=== PATIENT | male | born 1935 | race Caucasian/White ===

== ENCOUNTER 2016-09-09 05:42 | Outpatient (CLI) | payer MEDICARE ==
[~2016-09-09] VITALS: Ht 182.9 cm; Wt 73.5 kg
[~2016-09-09 05:42] MED LIST: ACET325T38 PO; AMLO10TA PO; Amiodarone Hcl PO; BNZ40T PO; BUME2TAB3 PO; CARV25TA PO; CLIN300C11 PO; CLPD75T PO; CYCL10TA45 PO; CYCL10TA9 PO; DIGO250T96 PO; FENO54TA PO; HYDR-3714 PO; LEVO100T7 PO; OMEG1CAP74 PO; PENI500T PO; PNT40TEC PO; PRD20T PO; SIMV20TA3 PO; TMZP15C PO
--- OUTSIDE RECORDS SUMMARY | 2016-09-09 05:46 | XMS REPORT | Continuity of Care Document ---
Author Author [facility] Organization [facility] Address Unknown Phone Unavailable Care Team Providers Care Production Sound Mixer Name Role Phone Travis Salas PCP [phone] Source Comments Some departments are not documenting in the electronic medical record. If you do not see the information that you expected, contact Release of Information in the Health Information Management department at [phone] for further assistance in locating additional records.[facility] Active Allergies and Adverse Reactions No Known [...] Encounters Date Type Specialty Providers Description 09/02/2016 [facility] Marla Carvalho MD Squamous cell carcinoma Encounter of oral cavity (HCC) 08/27/2016 Office Visit Otolaryngology Marla Carvalho MD Oral cancer (HCC) (Primary Dx) 08/26/2016 Telephone Otolaryngology Marla Carvalho MD Navigation Assessment 08/13/2016 Telephone Otolaryngology Mary Saha RN Appointment Social History Tobacco Use Types Packs/Day Years Used Date Never Smoker Alcohol Use Drinks/Week oz/Week Comments No Last Filed Vital Signs Vital Sign Reading Time Taken Blood Pressure 120/70 08/27/2016 12:40 PM SEED AND FERTILIZER SPECIALIST Pulse 77 08/27/2016 12:40 PM SEED AND FERTILIZER SPECIALIST Temperature - - Respiratory Rate - - Height 1.829 m (6') 08/27/2016 12:40 PM SEED AND FERTILIZER SPECIALIST Weight 72.757 kg (160 lb 6.4 oz) 08/27/2016 12:40 PM SEED AND FERTILIZER SPECIALIST Body Mass Index 21.75 08/27/2016 12:40 PM SEED AND FERTILIZER SPECIALIST Oxygen Saturation - - Plan of Care Health Maintenance Due Date Last Done Comments Physical (Comprehensive) 1940 Exam Pertussis Vaccine 1944 Tetanus Vaccine 1950 Shingles Vaccine 1993 Prevnar/Pneumovax (#1) 1998 Influenza Vaccine 04/29/2016 Results from Last 3 Months OUTSIDE PATHOLOGY CONSULT (09/02/2016 11:06 AM) Component Value Range PATHOLOGY REPORT [facility] [email or web address] Delma Guerrero MD, PhD, Director of Anatomic Pathology Department of Pathology and Laboratory Medicine [address] [place] [phone] Surgical Pathology Office: [phone] PATHOLOGY CONSULTATION NAME: MANOHAR SINGH SURG PATH #: [id number] MR #: [id number] ALT ID #: LOCATION: ENT DATE OF PROCEDURE: 09/02/2016 AGE: 81 SEX: M DATE RECEIVED: 09/02/2016 : 1935 TIME RECEIVED: 11:06 PHYSICIAN: MARLA CARVALHO MD DATE OF REPORT: 09/08/2016 COPY TO: DATE OF PRINTIN09/08/2016 ################################################## ###################### Final Diagnosis: A. Outside case [id number] (Date Collected: 08/05/2016) Squamous mucosa, "left vestibule", biopsy: Invasive moderately differentiated squamous cell carcinoma. (See comment) Comment: Human papillomavirus (HPV) in situ hybridization studies for High Risk HPV (genotypes 16 and 18), using the [place] HPV Type 16/18 Probe, are performed on the lesion with appropriate positive and negative controls. Results show the tumor cells to be NEGATIVE for high risk HPV. Immunohistochemical stain show the tumor cells are NEGATIVE for p16. Attestation: By this signature, I attest that I have personally formulated the final interpretation expressed in this report and that the above diagnosis is based upon my examination of the slides and/or other material indicated in this report. +++Electronically Signed Out+++ paj09/02/2016 Interpreted by: Delma Guerrero MD, Attending Physician ################################################## ###################### Material Received: A: Outside Slides x6 (unstained) [id number], Pathology Laboratory [facility], [address] [place] [address] History: 81-year-old male with a clinical history of squamous cell carcinoma. Gross Description: A. Received are six (6 unstained) outside slides labeled "[id number]", and a properly identified surgical pathology report from [facility]ology [facility], [address] [place] [address]. ; . paj09/02/2016 If immunohistochemical stains and/or in situ hybridization are cited in this report, the performance characteristics were determined by the Department of Pathology and Laboratory Medicine of the [facility] ([employer] [facility] [employer]) in compliance with CLIA'88 regulations. Some of these tests rely on the use of "analyte specific reagents" and are subject to specific labeling requirements by the FDA. Known positive and negative control tissues demonstrate appropriate staining. This testing was developed by the Department of Pathology and Laboratory Medicine of the [facility]. It has not been cleared or approved by the FDA. The FDA has determined that such clearance or approval is not necessary.
[2016-09-09] MEDS ORDERED: ACET-2267 PO (09:34)
[2016-09-09] MEDS ORDERED: SALI473M2 MM (09:34)
[2016-09-09] MEDS ORDERED: MULT-1029 PO (09:34)
[2016-09-09] MEDS ORDERED: MELA1TAB15 PO (09:34)
[2016-09-09] MEDS ORDERED: DIGO125T PO (09:34)
[2016-09-09] MEDS ORDERED: PANT40TA3 PO (09:34)
[2016-09-09] MEDS ORDERED: PRAV40TA2 PO (09:34)
[2016-09-10] MEDS ORDERED: TRAM50TA2 PO (09:51)
== END 2016-09-09 10:28 ==
LOC: PREOP 05:42
PROVIDERS: ATTEND Surgery
DX: Z01.818 Encounter for other preprocedural examination (principal); C41.1 Malignant neoplasm of mandible

== ENCOUNTER 2016-09-10 07:47 | Day surgery (SDC) | payer MEDICARE, OTHER ==
[~2016-09-10] VITALS: Ht 182.9 cm; Wt 73.5 kg
[~2016-09-10 07:47] MED LIST changes: +ACET-2267 PO; +DIGO125T PO; +MELA1TAB15 PO; +MULT-1029 PO; +PANT40TA3 PO; +PRAV40TA2 PO; +SALI473M2 MM
--- OUTSIDE RECORDS SUMMARY | 2016-09-10 07:50 | XMS REPORT | Continuity of Care Document ---
Author Author [facility] Organization [facility] Address Unknown Phone Unavailable Care Team Providers Care Extractions Technician Name Role Phone Travis Salas PCP [phone] Source Comments Some departments are not documenting in the electronic medical record. If you do not see the information that you expected, contact Release of Information in the Health Information Management department at [phone] for further assistance in locating additional records.[facility] Active Allergies and Adverse Reactions No Known [...] Encounters Date Type Specialty Providers Description 09/02/2016 [facility] Marla Carvalho MD Squamous cell carcinoma Encounter [...] Taken Blood Pressure 120/70 08/27/2016 12:40 PM MICRO PALEONTOLOGIST Pulse 77 08/27/2016 12:40 PM MICRO PALEONTOLOGIST Temperature - - Respiratory Rate - - Height 1.829 m (6') 08/27/2016 12:40 PM MICRO PALEONTOLOGIST Weight 72.757 kg (160 lb 6.4 oz) 08/27/2016 12:40 PM MICRO PALEONTOLOGIST Body Mass Index 21.75 08/27/2016 12:40 PM MICRO PALEONTOLOGIST Oxygen Saturation - - Plan of Care Health Maintenance Due Date Last Done Comments Physical (Comprehensive) 1940 Exam Pertussis Vaccine 1944 Tetanus Vaccine 1950 Shingles Vaccine 1993 Prevnar/Pneumovax (#1) 1998 Influenza Vaccine 04/29/2016 Results from Last 3 Months OUTSIDE PATHOLOGY CONSULT (09/02/2016 11:06 AM) Component Value Range PATHOLOGY REPORT [facility] [email or web address] Delma Guerrero MD, PhD, Director of Anatomic Pathology Department of Pathology and Laboratory Medicine [address] [place] [phone] Surgical Pathology Office: [phone] PATHOLOGY CONSULTATION NAME: MANOHAR SINGH SURG PATH #: [id number] MR #: [id number] ALT ID #: LOCATION: ENT DATE OF PROCEDURE: 09/02/2016 AGE: 81 SEX: M DATE RECEIVED: 09/02/2016 : 1935 TIME RECEIVED: 11:06 PHYSICIAN: MARLA CARVALHO MD DATE OF REPORT: 09/08/2016 COPY TO: DATE OF PRINTIN09/08/2016 ################################################## ###################### Final Diagnosis: A. Outside case [id number] (Date Collected: 08/05/2016) Squamous mucosa, "left vestibule", biopsy: Invasive moderately differentiated squamous cell carcinoma. (See comment) Comment: Human papillomavirus (HPV) in situ hybridization studies for High Risk HPV (genotypes 16 and 18), using the G3 HPV Type 16/18 Probe, are performed on [...] Material Received: A: Outside Slides x6 (unstained) [id number], Pathology Laboratory [facility], [address] [place] [address] History: 81-year-old male with a clinical history of squamous cell carcinoma. Gross Description: A. Received are six (6 unstained) outside slides labeled "[id number]", and a properly identified surgical pathology report from Pathology Laboratory [facility], [address] [place] [address]. ; . paj09/02/2016 If immunohistochemical stains and/or in situ hybridization are cited in this report, the performance characteristics were determined by the Department of Pathology and Laboratory Medicine of the [facility] ([employer] [facility]) in compliance with CLIA'88 regulations. Some of these tests rely on the use of "analyte specific reagents" and are subject to specific labeling requirements by the FDA. Known positive and negative control tissues demonstrate appropriate staining. This testing was developed by the Department of Pathology and Laboratory Medicine of the [facility]. It has not been cleared or approved by the FDA. The FDA has determined that such clearance or approval is not necessary.
--- OUTSIDE RECORDS SUMMARY | 2016-09-10 07:50 | XMS REPORT | Continuity of Care Document ---
Author Author [facility] Organization [facility] Address Unknown Phone Unavailable Care Team Providers Care Parks Recreation Director Name Role Phone Travis Salas PCP [phone] Source Comments Some departments are not documenting in the electronic medical record. If you do not see the information that you expected, contact Release of Information in the Health Information Management department at [phone] for further assistance in locating additional records.[facility] Active Allergies and Adverse Reactions No Known [...] Encounters Date Type Specialty Providers Description 09/02/2016 [facility] Marla Carvalho MD Squamous cell carcinoma Encounter [...] Taken Blood Pressure 120/70 08/27/2016 12:40 PM INTERNET ASSESSOR Pulse 77 08/27/2016 12:40 PM INTERNET ASSESSOR Temperature - - Respiratory Rate - - Height 1.829 m (6') 08/27/2016 12:40 PM INTERNET ASSESSOR Weight 72.757 kg (160 lb 6.4 oz) 08/27/2016 12:40 PM INTERNET ASSESSOR Body Mass Index 21.75 08/27/2016 12:40 PM INTERNET ASSESSOR Oxygen Saturation - - Plan of Care Health Maintenance Due Date Last Done Comments Physical (Comprehensive) 1940 Exam Pertussis Vaccine 1944 Tetanus Vaccine 1950 Shingles Vaccine 1993 Prevnar/Pneumovax (#1) 1998 Influenza Vaccine 04/29/2016 Results from Last 3 Months OUTSIDE PATHOLOGY CONSULT (09/02/2016 11:06 AM) Component Value Range PATHOLOGY REPORT [facility] [email or web address] Delma Guerrero MD, PhD, Director of Anatomic Pathology Department of Pathology and Laboratory Medicine [address] [place] [phone] Surgical Pathology Office: [phone] PATHOLOGY CONSULTATION NAME: MANOHAR SINGH SURG PATH #: [id number] MR #: [id number] ALT ID #: LOCATION: ENT DATE OF PROCEDURE: 09/02/2016 AGE: 81 SEX: M DATE RECEIVED: 09/02/2016 : 1935 TIME RECEIVED: 11:06 PHYSICIAN: MARLA CARVALHO MD DATE OF REPORT: 09/08/2016 COPY TO: DATE OF PRINTIN09/08/2016 ################################################## ###################### Final Diagnosis: A. Outside case [id number] (Date Collected: 08/05/2016) Squamous mucosa, "left vestibule", biopsy: Invasive moderately differentiated squamous cell carcinoma. (See comment) Comment: Human papillomavirus (HPV) in situ hybridization studies for High Risk HPV (genotypes 16 and 18), using the PowerCard HPV Type 16/18 Probe, are performed on [...] Material Received: A: Outside Slides x6 (unstained) [id number], Pathology Laboratory [facility], [address] [place] [address] History: 81-year-old male with a clinical history of squamous cell carcinoma. Gross Description: A. Received are six (6 unstained) outside slides labeled "[id number]", and a properly identified surgical pathology report from Pathology Laboratory [facility], [address] [place] [address]. ; . paj09/02/2016 If immunohistochemical stains and/or in situ hybridization are cited in this report, the performance characteristics were determined by the Department of Pathology and Laboratory Medicine of the [facility] ([employer] [facility]) in compliance with CLIA'88 regulations. Some of these tests rely on the use of "analyte specific reagents" and are subject to specific labeling requirements by the FDA. Known positive and negative control tissues demonstrate appropriate staining. This testing was developed by the Department of Pathology and Laboratory Medicine of the [facility]. It has not been cleared or approved by the FDA. The FDA has determined that such clearance or approval is not necessary.
--- NOTE | 2016-09-10 08:06 | Progress Note-Pre Operative ---
Pre-Operative Progress Note H&P Reviewed The H&P was reviewed, patient examined and no changes noted. 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
[2016-09-10 08:10] VITALS: BP 133/91
[2016-09-10] MEDS ORDERED: ceFAZolin 1 GM/NS 50 ML IVPB IV ONE ×2 (08:15)
[2016-09-10] MEDS ORDERED: LACTATED RINGERS 1,000 ML IV PRN (08:40)
[2016-09-10] MEDS ORDERED: FAMOTIDINE 20MG/2ML IV (PEPCID) IV ONE (08:45)
[2016-09-10] MEDS ORDERED: HEParin (CENTRAL IV FLUSH) 500 UNIT/5 ML SYR ONE (08:45)
[2016-09-10] MEDS ORDERED: BUP/EPI 0.25% 1:200,000 (MARCAINE) 30 ML VIAL ONE (08:45)
[2016-09-10] MEDS ORDERED: proPOfol 200 MG/20 ML (DIPRIVAN) VIAL IV ONE (08:49)
[2016-09-10] MEDS ORDERED: MIDAZOLAM 2 MG/2 ML (VERSED) VIAL ONE (08:49)
[2016-09-10] MEDS ORDERED: KETAMINE HCL 100 MG/ML 5 ML VIAL ONE (08:54)
--- NOTE | 2016-09-10 09:50 | Progress Note-Post Operative ---
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
[2016-09-10] MEDS ORDERED: TRAM50TA2 PO (09:51)
--- NOTE | 2016-09-10 09:52 | Discharge Inst-Simple/Standard ---
Discharge Inst-Standard Discharge Medications New, Converted or Re-Newed RX: RX on Chart Patient Instructions/Follow Up Plan of Care/Instructions/FU: dressings off in 48 hours. May use the port Activity as Tolerated: Yes Discharge Diet: No Restrictions GERSON MONTIEL MD Sep 10, 2016 9:52 am
[2016-09-10] MEDS ORDERED: ONDANSETRON 4 MG/2 ML (SDV) Z0FRAN IVP PRN (10:00)
[2016-09-10] MEDS ORDERED: morphine INJ 10 MG/ML 1ML (SYR OR VIAL) IVP PRN (10:00)
[2016-09-10 10:25] VITALS: BP 137/77
[2016-09-10 10:55] VITALS: BP 129/83
--- NOTE | 2016-09-10 11:01 | OPERATIVE REPORT ---
PROCEDURE PHYSICIAN: GERSON MONTIEL DATE OF PROCEDURE: 09/10/2016 PREOPERATIVE DIAGNOSIS: Recurrent squamous cell carcinoma left mandible. POSTOPERATIVE DIAGNOSIS: Recurrent squamous cell carcinoma left mandible. OPERATION: 1. Ultrasound localization of right internal jugular vein. 2. Intraoperative fluoroscopy. 3. Aeekjt-t-Zsgj placement. SURGEON: Wojciech. ANESTHESIA: Sedation with local BLOOD LOSS: Minimal. FLUIDS: 500 cc Crystalloids TYPE OF WOUND: Type I (clean wound). INDICATION FOR THE PROCEDURE: This gentleman is due to receive chemotherapy to manage recurrent squamous cell carcinoma of the left mandible. Therefore, placing an Cdolhj-q-Netm to facilitate therapy was felt to be reasonable. Informed consent was obtained after reviewing operative details and complications of bacteremia and malfunction of the catheter, requiring replacement and hematoma. DESCRIPTION OF THE PROCEDURE: He was placed supine on the operating table and our anesthesiologist administered sedation, monitoring his vital signs. A gram of Ancef was administered intravenously as prophylaxis against wound infection. Sequential compression devices were placed around his legs, to minimize the risk of venous thrombosis. His neck and upper chest were prepared and draped in the usual sterile manner. Right internal jugular vein was localized using a 10 MHz ultrasound probe and a floppy guidewire introduced into the heart, under fluoroscopy. A subcutaneous pocket was created over the infraclavicular fossa and the Paulo catheter brought into the neck, in a retrograde fashion. It was then advanced into the heart, under fluoroscopy using the peel-away sheath. The catheter was then pulled back to the superior vena cava under fluoroscopy and connected to the Rpibkm-n-Wstz, that had been primed with heparinized saline. I was able to aspirate and flush the system without difficulty. The port was then secured to the pectoralis muscle using 2-0 Prolene sutures. The incision was then closed using 3-0 Vicryl for the subcutaneous tissue and 4-0 Vicryl for skin, in a subcuticular fashion. Local anesthesia was achieved using one Marcaine with epinephrine. He tolerated the procedure well and was taken back to the nursing area in a stable condition. [place], sponges, and instruments were correct at the end of the operation. Job ID: [id number] Dictated Date: 09/10/2016 09:49:51 Boot And Shoe Repairman Date: 09/10/2016 10:53:50 / soy WHITMAN
[2016-09-10 11:25] VITALS: BP 141/80
--- NOTE | 2016-09-10 17:04 | Diagnostic Imaging Report ---
Intraoperative view of the chest. INDICATION: Port placement performed by Dr. Jeffrey. One minute and 34 seconds of fluoroscopy time provided. IMPRESSION: Provided images demonstrate port catheter position at the upper SVC level. Dictated by: Dictated on workstation # [id number]
== END 2016-09-10 12:17 | disposition home or self-care (01) ==
LOC: SDC 07:47
PROVIDERS: ATTEND Surgery
DX: C41.1 Malignant neoplasm of mandible (principal); I25.10 Atherosclerotic heart disease of native coronary artery without angina pectoris; I48.91 Unspecified atrial fibrillation; I10 Essential (primary) hypertension; Z79.899 Other long term (current) drug therapy
CPT/HCPCS: 36415; 80162; 87081

== ENCOUNTER → 2016-10-05 | Outpatient (CLI) | payer MEDICARE ==
[~2016-10-05] MED LIST changes: +ACET325T49 PO; +AMOX400S9 PO; +DEXT1DRO7 OU; +FEN12TD TD; +FENT1PAT8 TD; +HYDR118S10 PO; +MAGIC MOUTHWASH MM; +MORP100S3 PO; +NFCAPE500T PO; +ONDA8TAB12 PO; +POLY17PO6 PO; +QUET50TA PO; +TRAM50TA2 PO
--- OUTSIDE RECORDS SUMMARY | 2016-10-05 09:51 | XMS REPORT | Continuity of Care Document ---
Author Author [facility] Organization [facility] Address Unknown Phone Unavailable Care Team Providers Care Senior Hadoop Developer Name Role Phone Travis Salas PCP [phone] Source Comments Some departments are not documenting in the electronic medical record. If you do not see the information that you expected, contact Release of Information in the Health Information Management department at [phone] for further assistance in locating additional records.[facility] Active Allergies and Adverse Reactions No [...] Recent Encounters Date Type Specialty Providers Description 09/27/2016 Telephone Otolaryngology Marla Carvalho MD Navigation Follow Up 09/02/2016 [facility] Marla Carvalho MD Squamous cell [...] Taken Blood Pressure 120/70 08/27/2016 12:40 PM OCCUPATIONAL HEALTH AND SAFETY OFFICER Pulse 77 08/27/2016 12:40 PM OCCUPATIONAL HEALTH AND SAFETY OFFICER Temperature - - Respiratory Rate - - Height 1.829 m (6') 08/27/2016 12:40 PM OCCUPATIONAL HEALTH AND SAFETY OFFICER Weight 72.757 kg (160 lb 6.4 oz) 08/27/2016 12:40 PM OCCUPATIONAL HEALTH AND SAFETY OFFICER Body Mass Index 21.75 08/27/2016 12:40 PM OCCUPATIONAL HEALTH AND SAFETY OFFICER Oxygen Saturation - - Plan of Care Health Maintenance Due Date Last Done Comments Physical (Comprehensive) 1942 Exam Pertussis Vaccine 1944 Tetanus Vaccine 1950 Shingles Vaccine 1993 Prevnar/Pneumovax (#1) 1998 Influenza Vaccine 04/29/2016 Results from Last 3 Months PATHOLOGY REPORTS FROM OUTSIDE SCAN (09/14/2016 8:29 AM) Narrative Ordered by an unspecified provider. OUTSIDE PATHOLOGY CONSULT (09/02/2016 11:06 AM) Component Value Range PATHOLOGY REPORT [facility] [email or web address] Demla Guerrero MD, PhD, Director of Anatomic Pathology Department of Pathology and Laboratory Medicine [address] [place] [phone] Surgical Pathology Office: [phone] PATHOLOGY CONSULTATION NAME: MANOHAR SINGH SURG PATH #: [id number] MR #: [id number] ALT ID #: LOCATION: ENT DATE OF PROCEDURE: 09/02/2016 AGE: 81 SEX: M DATE RECEIVED: 09/02/2016 : 1935 TIME RECEIVED: 11:06 PHYSICIAN: MARLA CARVALHO MD DATE OF REPORT: 09/08/2016 COPY TO: DATE OF PRINTIN09/08/2016 ################################################## ###################### Final Diagnosis: A. Outside case [id number] (Date Collected: 08/05/2016) Squamous mucosa, "left vestibule", biopsy: Invasive moderately differentiated squamous cell carcinoma. (See comment) Comment: Human papillomavirus (HPV) in situ hybridization studies for High Risk HPV (genotypes 16 and 18), using the [employer] Power HPV Type 16/18 Probe, are performed on [...] Material Received: A: Outside Slides x6 (unstained) [id number], [facility], [address] [place], [place] [id number] History: 81-year-old male with a clinical history of squamous cell carcinoma. Gross Description: A. Received are six (6 unstained) outside slides labeled "[id number]", and a properly identified surgical pathology report from Pathology Laboratory [facility], [address] [id number]. ; . paj/09/02/2016 If immunohistochemical stains and/or in situ hybridization are cited in this report, the performance characteristics were determined by the Department of Pathology and Laboratory Medicine of the [facility] ([employer] [facility] [employer]) in compliance with CLIA'88 regulations. Some of these tests rely on the use of "analyte specific reagents" and are subject to specific labeling requirements by the FDA. Known positive and negative control tissues demonstrate appropriate staining. This testing was developed by the Department of Pathology and Laboratory Medicine of the [facility]. It has not been cleared or approved by the FDA. The FDA has determined that such clearance or approval is not necessary.
--- NOTE | 2016-10-05 10:24 | Diagnostic Imaging Report ---
INDICATION: History of left-sided jaw cancer. Headache. TECHNIQUE: Routine non contrast-enhanced axial images were obtained from the skull base to the vertex. COMPARISON: 09/24/2014. FINDINGS: The ventricles and cortical sulci are diffusely prominent, compatible with age-related volume loss. There are confluent areas of abnormal, low attenuation in the periventricular white matter. This is consistent with chronic small vessel ischemic changes. There is no midline shift or mass-effect. No acute intra-axial hemorrhage is seen. There are no abnormal areas of increased or decreased density to suggest acute hemorrhage or edema. No extra-axial masses or collections are present. The bony calvarium is intact. The visualized paranasal sinuses are unremarkable. The mastoid air cells are clear. IMPRESSION: 1. No acute intracranial abnormality. No CT evidence of mass, acute infarct or intracranial hemorrhage. 2. Chronic small vessel ischemic changes in the deep white matter. Dictated by: Dictated on workstation # [id number]
== END ==
LOC: RAD 09:47
PROVIDERS: ATTEND Internal Medicine Hematology & Oncology
DX: C76.0 Malignant neoplasm of head, face and neck (principal); R51 Headache
CPT/HCPCS: 70450

== ENCOUNTER 2016-10-22 12:16 | Emergency (ER) | payer MEDICARE ==
[~2016-10-22] VITALS: Ht 182.9 cm; Wt 68.5 kg
[~2016-10-22 12:16] MED LIST changes: -ACET325T49 PO; -AMOX400S9 PO; -DEXT1DRO7 OU; -FEN12TD TD; -FENT1PAT8 TD; -HYDR118S10 PO; -MAGIC MOUTHWASH MM; -MORP100S3 PO; -NFCAPE500T PO; -ONDA8TAB12 PO; -POLY17PO6 PO; -QUET50TA PO
[2016-10-22] MEDS ORDERED: NS IV 1000 ML 1,000 ML IV ONE (12:19)
--- OUTSIDE RECORDS SUMMARY | 2016-10-22 12:24 | XMS REPORT | Continuity of Care Document ---
Author Author [facility] Organization [facility] Address Unknown Phone Unavailable Care Team Providers Care Frontload Driver Name Role Phone Travis Salas PCP [phone] Source Comments Some departments are not documenting in the electronic medical record. If you do not see the information that you expected, contact Release of Information in the Health Information Management department at [phone] for further assistance in locating additional records.[facility] Active Allergies and Adverse Reactions No [...] Marla Carvalho MD Navigation Follow Up 09/02/2016 [facility] Marla Carvalho MD Squamous cell carcinoma [...] Taken Blood Pressure 120/70 08/27/2016 12:40 PM FITNESS CENTRE MANAGER Pulse 77 08/27/2016 12:40 PM FITNESS CENTRE MANAGER Temperature - - Respiratory Rate - - Height 1.829 m (6') 08/27/2016 12:40 PM FITNESS CENTRE MANAGER Weight 72.757 kg (160 lb 6.4 oz) 08/27/2016 12:40 PM FITNESS CENTRE MANAGER Body Mass Index 21.75 08/27/2016 12:40 PM FITNESS CENTRE MANAGER Oxygen Saturation - - Plan of [...] AM) Component Value Range PATHOLOGY REPORT [facility] [email or web address] Delma Guerrero MD, PhD, Director of Anatomic Pathology Department of Pathology and Laboratory Medicine [address] [place] [phone] Surgical Pathology Office: [phone] PATHOLOGY CONSULTATION NAME: MANOHAR SINGH SURG PATH #: [id number] MR #: [id number] ALT ID #: LOCATION: ENT DATE OF PROCEDURE: 09/02/2016 AGE: 81 SEX: M DATE RECEIVED: 09/02/2016 : 1935 TIME RECEIVED: 11:06 PHYSICIAN: MARLA CARVALHO MD DATE OF REPORT: 09/08/2016 COPY TO: DATE OF PRINTIN09/08/2016 ################################################## ###################### Final Diagnosis: A. Outside case [id number] (Date Collected: 08/05/2016) Squamous mucosa, "left vestibule", biopsy: Invasive moderately differentiated squamous cell carcinoma. (See comment) Comment: Human papillomavirus (HPV) in situ hybridization studies for High Risk HPV (genotypes 16 and 18), using the CarbonFlow HPV Type 16/18 Probe, are performed on [...] Material Received: A: Outside Slides x6 (unstained) [id number], [facility], [address] [place], [place] [id number] History: 81-year-old male with a clinical history of squamous cell carcinoma. Gross Description: A. Received are six (6 unstained) outside slides labeled "[id number]", and a properly identified surgical pathology report from [facility], [address] [id number]. ; . paj/09/02/2016 If immunohistochemical stains and/or in situ hybridization are cited in this report, the performance characteristics were determined by the Department of Pathology and Laboratory Medicine of the [facility] ([facility]) in compliance with CLIA'88 regulations. Some of these tests rely on the use of "analyte specific reagents" and are subject to specific labeling requirements by the FDA. Known positive and negative control tissues demonstrate appropriate staining. This testing was developed by the Department of Pathology and Laboratory Medicine of the [facility]. It has not been cleared or approved by the FDA. The FDA has determined that such clearance or approval is not necessary.
[2016-10-22] MEDS ORDERED: fentaNYL INJECTION 100 MCG/2 ML AMP IVP ONE (12:45)
[2016-10-22 12:48] LABS: BASOPHILS % (AUTO) 0 % (0-10); EOSINOPHILS # (AUTO) 0.1 10^3/uL (0.0-0.3); EOSINOPHILS % (AUTO) 1 % (0-10); LYMPHOCYTES # (AUTO) 0.6 X 10^3 (1.0-4.0); LYMPHOCYTES % (AUTO) 8 % (12-44); MEAN CORPUSCULAR HEMOGLOBIN 33 PG (25-34); MEAN CORPUSCULAR HGB CONC 33 G/DL (32-36); MEAN CORPUSCULAR VOLUME 99 FL (80-99); MEAN PLATELET VOLUME 8.7 FL (7.4-10.4); MONOCYTES # (AUTO) 0.6 X 10^3 (0.0-1.0); MONOCYTES % (AUTO) 9 % (0-12); NEUTROPHILS # (AUTO) 5.7 X 10^3 (1.8-7.8); NEUTROPHILS % (AUTO) 81 % (42-75); PLATELET COUNT 143 10^3/uL (130-400); RED BLOOD COUNT 2.92 10^6/uL (4.35-5.85); RED CELL DISTRIBUTION WIDTH 17.9 % (10.0-14.5)
[2016-10-22 12:58] LABS: INR 1.1 (0.8-1.4)
[2016-10-22 13:08] LABS: ALANINE AMINOTRANSFERASE 8 U/L (0-55); ALBUMIN 3.1 G/DL (3.2-4.5); ANION GAP 8 MMOL/L (5-14); ASPARTATE AMINO TRANSFERASE 12 U/L (5-34); BLOOD UREA NITROGEN 27 MG/DL (7-18); BUN/CREATININE RATIO 27; CALCIUM 8.7 MG/DL (8.5-10.1); CARBON DIOXIDE 27 MMOL/L (21-32); CHLORIDE 101 MMOL/L (98-107); CREATININE SERUM 1.01 MG/DL (0.60-1.30); GFR ESTIMATED > 60; GLUCOSE 100 MG/DL (70-105); POTASSIUM 4.5 MMOL/L (3.6-5.0); SODIUM 136 MMOL/L (135-145); TOTAL PROTEIN 6.1 G/DL (6.4-8.2)
--- NOTE | 2016-10-22 13:11 | Diagnostic Imaging Report ---
INDICATION: Fall and dizziness. Portable chest obtained at 1:01 p.m. and compared to 07/30/2016. FINDINGS: Heart is borderline in size. Aorta is tortuous. The lungs are clear. There is no pneumothorax or pleural fluid. Pacemaker is unchanged compared to the prior study. There is a new Port-A-Cath in place over the right upper chest, with catheter entering the right internal jugular vein and catheter tip in the upper SVC. IMPRESSION: No acute process in the chest. Dictated by: Dictated on workstation # [id number]
--- NOTE | 2016-10-22 13:28 | ED General ---
General Chief Complaint: Trauma-Non Activation Stated Complaint: FALL DIZZY Nursing Triage Note: SEE NON TRAUMA ACTIVATION Nursing Sepsis Screen: No Definite Risk Source of Information: Patient, Family, Other (Dr. Schafer) Exam Limitations: No Limitations History of Present Illness Time Seen by Provider: 12:19 Initial Comments This 81-year-old gentleman with left jaw cancer presents to the emergency room with increasing swelling, redness, and pain of the left jaw. He is presently receiving chemotherapy under the direction of Dr. Alonso. Dr. Schafer contacted the emergency room prior to patient's arrival as he was [facility]. At that time there was concern for possible trauma injury as patient became lightheaded and fell at home. He has abrasions and skin tears to the right upper extremity. He denies any head or neck injury. Dr. Neves also noted that a standing blood pressure would not register for them in the clinic. He has had difficulty with oral intake due to recent problems associated with his cancer. He is afebrile. Standing blood pressure on assessment was orthostatic. Location Injury Occurred: HOME Allergies and Home Medications Allergies Coded Allergies: No Known Drug Allergies (Verified , 01/23/08) Home Medications Acetaminophen 500 Mg Tablet 500 MG PO Q4H PRN PRN PAIN (Reported) Amoxicillin 400 Mg/5 Ml Susp.recon #250 1,000 MG PO BID Prescribed by: SEAN ERAZO on 10/22/16 1437 Bumetanide 2 Mg Tablet 2 MG PO TWICE WEEKLY PRN PRN leg swelling (Reported) Carvedilol 25 Mg Tablet 25 MG PO BIDAC (Reported) Digoxin 125 Mcg Tablet 125 MCG PO DAILY (Reported) Levothyroxine Sodium 100 Mcg Tablet 100 MCG PO DAILY (Reported) Melatonin/Pyridoxine 1 Each Tablet 5 MG PO HS (Reported) Multivit-Min/FA/Lycopene/Lut 1 Each Tablet 1 EACH PO DAILY (Reported) Pantoprazole Sodium 40 Mg Tablet.dr 40 MG PO BID (Reported) Pravastatin Sodium 40 Mg Tablet 40 MG PO DAILY (Reported) Saliva Substitution Combo No.9 473 Ml Mouthwash 5 ML MM DAILY (Reported) Tramadol HCl 50 Mg Tablet #20 50 MG PO Q12H PRN PRN PAIN Prescribed by: GERSON MONTIEL on 09/10/16 0951 Constitutional: No fever, weakness EENTM: see HPI Respiratory: no symptoms reported Cardiovascular: see HPI Gastrointestinal: no symptoms reported Genitourinary: no symptoms reported Musculoskeletal: no symptoms reported Past Sjxefor-Zxxysl-Ivxmmx Hx Patient Social History Alcohol Use: Denies Use Recreational Drug Use: No Smoking Status: Never a Smoker Recent Foreign Travel: No Contact w/Someone Who Travel: No Recent Infectious Disease Expo: No Recent Hopitalizations: No Immunizations Up To Date Tetanus Booster (TDap): Less than 5yrs Date of Influenza Vaccine: Jun 29, 2016 Seasonal Allergies Seasonal Allergies: No Surgeries HX Surgeries: Yes (JAW REPAIR FOLLOWING CA, CARDIAC CATH AND STENTS) Surgeries: Cardiac, Coronary Stent, Pacemaker Respiratory Hx Respiratory Disorders: No Cardiovascular Hx Cardiac Disorders: Yes (PACEMAKER, STENTS) Cardiac Disorders: Atrial Fibrillation, Coronary Artery Disease, Heart Attack, High Cholesterol, Hypertension Neurological Hx Neurological Disorders: Yes Neurological Disorders: TIA Reproductive System Hx Reproductive Disorders: No Genitourinary Hx Genitourinary Disorders: No Gastrointestinal Hx Gastrointestinal Disorders: Yes (GASTRIC OUTLET OBSTRUCTION DUE TO ULCER) Gastrointestinal Disorders: Ulcer Musculoskeletal Hx Musculoskeletal Disorders: Yes Musculoskeletal Disorders: Arthritis, Chronic Back Pain Endocrine Hx Endocrine Disorders: Yes Endocrine Disorders: Hypothyroidsim, Diabetes, Non-Insulin dep HEENT HX ENT Disorders: Yes (ORAL CANCER) HEENT Disorders: Cataract Loss of Vision: Denies Hearing Impairment: Denies Cancer Hx Cancer: Yes (HEAD/NECK, THROAT/ORAL CANCER) Cancer: Oral Psychosocial Hx Psychiatric Problems: No Integumentary HX Skin/Integumentary Disorder: No Blood Transfusions Hx Blood Disorders: Yes (GI LOSS ANEMIA) Adverse Reaction to a Blood Tr: No Family Medical History Family Medial History: Family history: Arthritis 19 FATHER 19 MOTHER Myocardial infarction 19 FATHER ( AT 86) Physical Exam Vital Signs Vital Sign - Last 12Hours 10/22/16 12:20 Temp 95.9 Pulse 73 Resp 18 B/P 124/90 Pulse Ox 97 Capillary Refill : Less Than 3 Seconds General Appearance: No Apparent Distress WD/WN HEENT: PERRL/EOMI Other (tender, firm induration of the left jaw and cheek with skin crusting noted. Associated blanching erythema and skin warmth. There is questionable exudative material on the mucosal surface. No fluctuance to suggest abscess.) Neck: Tender Lateral Respiratory: Lungs Clear Normal Breath Sounds No Accessory Muscle Use No Respiratory Distress Cardiovascular: Regular Rate, Rhythm No Edema No Murmur Gastrointestinal: Non Tender Soft Extremity: Normal Inspection No Pedal Edema Neurologic/Psychiatric: Alert Oriented x3 No Motor/Sensory Deficits Normal Mood/Affect Skin: Normal Color Warm/Dry Other (see head exam above) Progress/Results/Core Measures Results/Orders Lab Results Laboratory Tests Test 10/22/16 12:35 10/22/16 13:25 Range/Units Activated Partial Thromboplast Time 31 24-35 SEC Alanine Aminotransferase (ALT/SGPT) 8 0-55 U/L Albumin 3.1 L 3.2-4.5 G/DL Alkaline Phosphatase 41 40-136 U/L Anion Gap 8 5-14 MMOL/L Aspartate Amino Transf (AST/SGOT) 12 5-34 U/L BUN/Creatinine Ratio 27 Basophils # (Auto) 0.0 0.0-0.1 10^3/uL Basophils (%) (Auto) 0 0-10 % Blood Urea Nitrogen 27 H 7-18 MG/DL Calcium Level 8.7 8.5-10.1 MG/DL Carbon Dioxide Level 27 21-32 MMOL/L Chloride Level 101 98-107 MMOL/L Creatinine 1.01 0.60-1.30 MG/DL Eosinophils # (Auto) 0.1 0.0-0.3 10^3/uL Eosinophils (%) (Auto) 1 0-10 % Estimat Glomerular Filtration Rate > 60 Glucose Level 100 70-105 MG/DL Hematocrit 29 L 40-54 % Hemoglobin 9.6 L 13.3-17.7 G/DL INR Comment 1.1 0.8-1.4 Lactic Acid Level 0.7 0.5-2.0 MMOL/L Lymphocytes # (Auto) 0.6 L 1.0-4.0 X 10^3 Lymphocytes (%) (Auto) 8 L 12-44 % Mean Corpuscular Hemoglobin 33 25-34 PG Mean Corpuscular Hemoglobin Concent 33 32-36 G/DL Mean Corpuscular Volume 99 80-99 FL Mean Platelet Volume 8.7 7.4-10.4 FL Monocytes # (Auto) 0.6 0.0-1.0 X 10^3 Monocytes (%) (Auto) 9 0-12 % Neutrophils # (Auto) 5.7 1.8-7.8 X 10^3 Neutrophils (%) (Auto) 81 H 42-75 % Platelet Count 143 130-400 10^3/uL Potassium Level 4.5 3.6-5.0 MMOL/L Prothrombin Time 14.0 12.2-14.7 SEC Red Blood Count 2.92 L 4.35-5.85 10^6/uL Red Cell Distribution Width 17.9 H 10.0-14.5 % Sodium Level 136 135-145 MMOL/L Total Bilirubin 1.0 0.1-1.0 MG/DL Total Protein 6.1 L 6.4-8.2 G/DL White Blood Count 7.0 4.3-11.0 10^3/uL Urine Bacteria NEGATIVE /HPF Urine Bilirubin NEGATIVE NEGATIVE Urine Casts NONE /LPF Urine Clarity CLEAR Urine Color YELLOW Urine Crystals NONE /LPF Urine Culture Indicated NO Urine Glucose (UA) NEGATIVE NEGATIVE Urine Ketones NEGATIVE NEGATIVE Urine Leukocyte Esterase NEGATIVE NEGATIVE Urine Mucus NEGATIVE /LPF Urine Nitrite NEGATIVE NEGATIVE Urine Protein 2+ H NEGATIVE Urine RBC NONE /HPF Urine RBC (Auto) NEGATIVE NEGATIVE Urine Specific [place] 1.010 L 1.016-1.022 Urine Squamous Epithelial Cells 0-2 /HPF Urine Urobilinogen 4 H NORMAL MG/DL Urine WBC RARE /HPF Urine pH 7 5-9 Micro Results Microbiology 10/22/16 Blood Culture - Preliminary, Resulted No growth 10/22/16 Blood Culture - Preliminary, Resulted No growth My Orders Orders-SEAN CONNORS MD Cbc With Automated Diff (10/22/16 12:18) Comprehensive Metabolic Panel (10/22/16 12:18) Lactic Acid Analyzer (10/22/16 12:18) Blood Culture (10/22/16 12:18) Ua Culture If Indicated (10/22/16 12:18) Protime With Inr (10/22/16 12:18) Partial Thromboplastin Time (10/22/16 12:18) Chest 1 View, Ap/Pa Only (10/22/16 12:18) O2 (10/22/16 12:18) Saline Lock/Iv-Start (10/22/16 12:18) Saline Lock/Iv-Start (10/22/16 12:18) Vital Signs Adult Sepsis Patie Q1HR (10/22/16 12:18) Remove Rings In Anticipation O (10/22/16 12:18) Ns Iv 1000 Ml (Sodium Chloride 0.9%) (10/22/16 12:19) Fentanyl Injection (Sublimaze Injection (10/22/16 12:45) Clindamycin 900 Mg/50 Ml Ivpb (Cleocin P (10/22/16 14:15) Heparin (Central Iv Flush) (Heparin (Desi (10/22/16 14:59) Medications Given in ED Vital Signs/I&O Blood Pressure Mean: 101 Progress Note #1: Progress Note Patient felt much better after a liter of IV fluids and fentanyl. Systolic standing blood pressure improved to 126 even before fluids were complete. Progress Note #2: Time: 14:15 Progress Note Case was reviewed with Dr. Neves after results of studies returned. He is concerned the patient may have developed some cellulitis because of the marked change in skin appearance. He requested antibiotic therapy be initiated. He suggested amoxicillin to cover for oral anila. He will receive a dose of IV clindamycin in the ER followed by oral amoxicillin. Diagnostic Imaging Diagonstic Imaging: Xray Plain Films/CT/US/NM/MRI: chest Comments NAME: WILLAM DAVIES [facility] REC#: [id number] PT STATUS: REG ER : 1935 PHYSICIAN: SEAN CONNORS MD ADMIT DATE: 10/22/16/ER Draft Date of Exam:10/22/16 CHEST 1 VIEW, AP/PA ONLY INDICATION: Fall and dizziness. Portable chest obtained at 1:01 p.m. and compared to 07/30/2016. FINDINGS: Heart is borderline in size. Aorta is tortuous. The lungs are clear. There is no pneumothorax or pleural fluid. Pacemaker is unchanged compared to the prior study. There is a new Port-A-Cath in place over the right upper chest, with catheter entering the right internal jugular vein and catheter tip in the upper SVC. IMPRESSION: No acute process in the chest. Dictated on workstation # [id number] Dict: 10/22/16 1303 Trans: 10/22/16 1311 KB [id number] Interpreted by: SANDRA MCINTOSH MD Departure Impression Impression: Primary Impression: Orthostatic hypotension Additional Impressions: Falls Qualified Code: W19.XXXA - Unspecified fall, initial encounter Jaw cancer Hypovolemia Facial cellulitis Disposition: 01 HOME, SELF-CARE Condition: Improved Departure-Patient Inst. Decision time for Depature: 14:15 Referrals: SABRA ANDRES MD (PCP/Family) Primary Care Physician Patient Instructions: Cellulitis (Skin Infection), Adult (DC) Add. Discharge Instructions: Complete your antibiotics as prescribed. Follow-up with the Cancer Center early next week. Return to care if symptoms worsen. Drink plenty of clear liquids to stay well-hydrated. All discharge instructions reviewed with patient and/or family. Voiced understanding. Scripts Amoxicillin 400 Mg/5 Ml Susp.recon1,000 Mg PO BID #250 ML Prov:SEAN CONNORS MD 10/22/16 Copy Copies To 1: JOYA ALONSO MD, JOSHUA T MD Oct 22, 2016 13:28
[2016-10-22 13:33] LABS: BILIRUBIN,URINE NEGATIVE (NEGATIVE); KETONES,URINE NEGATIVE (NEGATIVE); LEUKOCYTE ESTERASE ,URINE NEGATIVE (NEGATIVE); NITRITE,URINE NEGATIVE (NEGATIVE); PH,URINE 7 (5-9); PROTEIN,URINE 2+ (NEGATIVE); UROBILINOGEN,URINE 4 MG/DL (NORMAL)
[2016-10-22 13:42] LABS: SQUAMOUS EPITHELIAL CELL,UR 0-2 /HPF; WBC,URINE RARE /HPF
[2016-10-22] MEDS ORDERED: CLINDAMYCIN 900 MG/50 ML IVPB 50 ML IV ONE (14:15)
[2016-10-22] MEDS ORDERED: AMOX400S9 PO (14:37)
[2016-10-22] MEDS ORDERED: HEParin (CENTRAL IV FLUSH) 500 UNIT/5 ML SYR ONE (14:59)
[2016-10-22 15:26] VITALS: BP 124/58
== END 2016-10-22 15:26 | disposition home or self-care (01) ==
LOC: EDUNIT# 12:16 → ER 12:19
DX: L03.211 Cellulitis of face (principal); I95.1 Orthostatic hypotension; S40.811A Abrasion of right upper arm, initial encounter; R29.6 Repeated falls; C06.9 Malignant neoplasm of mouth, unspecified; Z79.899 Other long term (current) drug therapy; I48.2 Chronic atrial fibrillation; Z95.0 Presence of cardiac pacemaker; Z95.5 Presence of coronary angioplasty implant and graft; Y92.009 Unspecified place in unspecified non-institutional (private) residence as the place of occurrence of the external cause; Y99.8 Other external cause status
CPT/HCPCS: 71010; 80053; 81000; 83605; 85610; 85730; 87040; 96361; 96365; 96375

== ENCOUNTER 2016-10-29 11:35 | Inpatient (IN) | payer MEDICARE ==
[~2016-10-29] VITALS: Ht 182.9 cm; Wt 66.8 kg
[~2016-10-29 11:35] MED LIST changes: +AMOX400S9 PO
[2016-10-29 14:10] VITALS: BP 143/72
--- OUTSIDE RECORDS SUMMARY | 2016-10-29 14:22 | XMS REPORT | Continuity of Care Document ---
Author Author [facility] Organization [facility] Address Unknown Phone Unavailable Care Team Providers Care Land Surveying Party Chief Name Role Phone Travis Salas PCP [phone] Source Comments Some departments are not documenting in the electronic medical record. If you do not see the information that you expected, contact Release of Information in the Health Information Management department at [phone] for further assistance in locating additional records.[facility] Active Allergies and Adverse Reactions [...] Marla Carvalho MD Navigation Follow Up 09/02/2016 [facility] Marla Carvalho MD Squamous cell [...] Taken Blood Pressure 120/70 08/27/2016 12:40 PM LAB TESTER Pulse 77 08/27/2016 12:40 PM LAB TESTER Temperature - - Respiratory Rate - - Height 1.829 m (6') 08/27/2016 12:40 PM LAB TESTER Weight 72.757 kg (160 lb 6.4 oz) 08/27/2016 12:40 PM LAB TESTER Body Mass Index 21.75 08/27/2016 12:40 PM LAB TESTER Oxygen Saturation - - Plan of Care [...] AM) Component Value Range PATHOLOGY REPORT [facility] [email or web address] Delma Guerrero MD, PhD, Director of Anatomic Pathology Department of Pathology and Laboratory Medicine [address] [place] [phone] Surgical Pathology Office: [phone] PATHOLOGY CONSULTATION NAME: MANOHAR SINGH SURG PATH #: [id number] MR #: [id number] ALT ID #: LOCATION: ENT DATE OF PROCEDURE: 09/02/2016 AGE: 81 SEX: M DATE RECEIVED: 09/02/2016 : 1935 TIME RECEIVED: 11:06 PHYSICIAN: MARLA CARVALHO MD DATE OF REPORT: 09/08/2016 COPY TO: DATE OF PRINTIN09/08/2016 ################################################## ###################### Final Diagnosis: A. Outside case [id number] (Date Collected: 08/05/2016) Squamous mucosa, "left vestibule", biopsy: Invasive moderately differentiated squamous cell carcinoma. (See comment) Comment: Human papillomavirus (HPV) in situ hybridization studies for High Risk HPV (genotypes 16 and 18), using the Catheter Connections HPV Type 16/18 Probe, are performed on [...] Material Received: A: Outside Slides x6 (unstained) [id number], [facility], [address] [place], [place] [id number] History: 81-year-old male with a clinical history of squamous cell carcinoma. Gross Description: A. Received are six (6 unstained) outside slides labeled "[id number]", and a properly identified surgical pathology report from [facility], [address] [id number]. ; . paj/09/02/2016 If immunohistochemical stains and/or in situ hybridization are cited in this report, the performance characteristics were determined by the Department of Pathology and Laboratory Medicine of the [facility] ([facility]) in compliance with CLIA'88 regulations. Some of these tests rely on the use of "analyte specific reagents" and are subject to specific labeling requirements by the FDA. Known positive and negative control tissues demonstrate appropriate staining. This testing was developed by the Department of Pathology and Laboratory Medicine of the [facility]. It has not been cleared or approved by the FDA. The FDA has determined that such clearance or approval is not necessary.
[2016-10-29] MEDS ORDERED: CATHETER FLUSH 10 ML SYR IV PRN (15:15)
--- NOTE | 2016-10-29 15:24 | Oncology History & Physical ---
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 He is on Carbo and oral 5FU treatment. He lives at home by himself with home [facility] care. We got a call from the nurse this morning and stated that patient was not able to take care of himself at home and he has not been able to eat for days. He has a lot of pain over the his mouth and jaw that prevent him swallow. He was directly admitted over the weekend and then possible alf next week. He was initiated on weekly carboplatin and Taxol on 09/14/16. Last cycle and last dose one week ago. I consulted the patient on: 10/29/16 15:19 Constitutional: chills dizziness weakness weight loss EENTM: mouth pain mouth swelling throat pain throat swelling Respiratory: no symptoms reported Cardiovascular: no symptoms reported Gastrointestinal: no symptoms reported Genitourinary: no symptoms reported Musculoskeletal: no symptoms reported Skin: lesions lumps Psychiatric/Neurological: No Symptoms Reported Health Status Allergies Coded Allergies: No Known Drug Allergies (Verified , 01/23/08) Home Medications Acetaminophen (Tylenol Extra Strength) 500 Mg Tablet 500 MG PO Q4H PRN PRN PAIN (Reported) Amoxicillin (Amoxicillin) 400 Mg/5 Ml Susp.recon #250 1,000 MG PO BID Prescribed by: SAEN ERAZO on 10/22/16 7037 Bumetanide (Bumetanide) 2 Mg Tablet 2 MG PO TWICE WEEKLY PRN PRN leg swelling ( Reported) Carvedilol (Carvedilol) 25 Mg Tablet 25 MG PO BIDAC (Reported) Digoxin (Digoxin) 125 Mcg Tablet 125 MCG PO DAILY (Reported) Levothyroxine Sodium (Levothyroxine Sodium) 100 Mcg Tablet 100 MCG PO DAILY ( Reported) Melatonin/Pyridoxine (Melatonin 5 mg Tablet) 1 Each Tablet 5 MG PO HS (Reported ) Multivit-Min/FA/Lycopene/Lut (Centrum Silver Tablet) 1 Each Tablet 1 EACH PO DAILY (Reported) Pantoprazole Sodium (Pantoprazole Sodium) 40 Mg Tablet.dr 40 MG PO BID (Reported ) Pravastatin Sodium (Pravastatin Sodium) 40 Mg Tablet 40 MG PO DAILY (Reported) Saliva Substitution Combo No.9 (Biotene) 473 Ml Mouthwash 5 ML MM DAILY ( Reported) Tramadol HCl (Tramadol HCl) 50 Mg Tablet #20 50 MG PO Q12H PRN PRN PAIN Prescribed by: GERSON MONTIEL on 09/10/16 0951 DOX-Zafwmc-Nccffy Hx Patient Social History Alcohol Use: Denies Use Recreational Drug Use: No Smoking Status: Never a Smoker Recent Foreign Travel: No Contact w/other who traveled: No Recent Infectious Disease Expo: No Recent Hopitalizations: No Physical Abuse Screen: No Sexual Abuse: No Immunizations Up To Date Tetanus Booster (TDap): Less than 5yrs Date of Influenza Vaccine: Jun 29, 2016 Family Medical History Family History: Family history: Arthritis 19 FATHER 19 MOTHER Myocardial infarction 19 FATHER ( AT 86) Physical Exam Vital Signs Vital Sign - Last 12Hours 10/29/16 14:10 Temp 96.0 Pulse 71 Resp 20 B/P 143/72 Pulse Ox 100 O2 Delivery Room Air Capillary Refill : General Appearance: Chronically ill Mild Distress HEENT: PERRL/EOMI Pharyngeal Erythema Other (large tumor mass over left lower jaw with necrosis) Neck: Non Tender Supple Respiratory: Chest Non Tender Lungs Clear Cardiovascular: Regular Rate, Rhythm No Edema No Gallop No JVD No Murmur Gastrointestinal: No Organomegaly Non Tender Soft Extremity: Non Tender No Calf Tenderness No Pedal Edema Neurologic/Psychiatric: Alert Oriented x3 Impression & Plan Impression & Plan 1. 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 Status post prior surgery and Radiation in 2007; Radiation Oncology has evaluated the patient and stated that he had a very high dose of radiation and has significant bone loss and re- radiation is not recommended. He is on Carbo+5FU, last dose 1 week ago. b. Should chemotherapy become difficult to manage for this patient, he will be able to receive Opdivo or Keytruda which are both approved for recurrent head and neck cancer that has progressed on [place] therapy. 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 Poor po intake, dehydration and pain control issue. Insufficient care at home. Pt lives by himself at home. a. IV clinimix b. Pain control with IV morphine PRN 3. Heart Disease; History of CAD- a. Status post Pacemaker placement; b. Not on anticoagulation because of bleeding risk/ history PUD; 4. Hypertension 5. Hypothyroidiam- on Levothyroxine; 6. History of PUD -- a. 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 DVT prophylaxis: SCD 8. nozzle and sleeve worker consult for placement BETHANIE FERREIRA MD Oct 29, 2016 15:24
[2016-10-29] MEDS ORDERED: ONDA8TAB12 PO (15:55)
[2016-10-29] MEDS ORDERED: CARV25TA PO (15:55)
[2016-10-29] MEDS ORDERED: POLY17PO6 PO (15:55)
[2016-10-29] MEDS ORDERED: ACET325T49 PO (15:55)
[2016-10-29] MEDS ORDERED: HYDR118S10 PO (15:55)
[2016-10-29] MEDS ORDERED: AMOX400S9 PO (16:09)
[2016-10-29] MEDS ORDERED: DEXT1DRO7 OU (16:09)
[2016-10-29] MEDS ORDERED: MAGIC MOUTHWASH MM (16:14)
[2016-10-29] MEDS ORDERED: NFCAPE500T PO (16:14)
[2016-10-29 16:22] LABS: BASOPHILS % (AUTO) 0 % (0-10); EOSINOPHILS # (AUTO) 0.1 10^3/uL (0.0-0.3); EOSINOPHILS % (AUTO) 2 % (0-10); LYMPHOCYTES # (AUTO) 0.7 X 10^3 (1.0-4.0); LYMPHOCYTES % (AUTO) 13 % (12-44); MEAN CORPUSCULAR HEMOGLOBIN 33 PG (25-34); MEAN CORPUSCULAR HGB CONC 33 G/DL (32-36); MEAN CORPUSCULAR VOLUME 100 FL (80-99); MEAN PLATELET VOLUME 8.7 FL (7.4-10.4); MONOCYTES # (AUTO) 0.4 X 10^3 (0.0-1.0); MONOCYTES % (AUTO) 8 % (0-12); NEUTROPHILS # (AUTO) 3.9 X 10^3 (1.8-7.8); NEUTROPHILS % (AUTO) 76 % (42-75); PLATELET COUNT 168 10^3/uL (130-400); RED BLOOD COUNT 2.77 10^6/uL (4.35-5.85); WHITE BLOOD COUNT 5.1 10^3/uL (4.3-11.0)
[2016-10-29] MEDS: AA 4.25% W/LYTES IN D5W IV SOL 1,000 ML IV SCH (16:26)
[2016-10-29] MEDS ORDERED: NON-FORMULARY MEDICATION 1 EA EA (Ondansetron HCl 8 MG) PO PRN (16:45)
[2016-10-29] MEDS ORDERED: ACETAMINOPHEN 325 MG TABLET/CAPLET (TYLENOL) PO PRN (16:45)
[2016-10-29] MEDS ORDERED: HYDROCODONE PO PRN (16:45)
[2016-10-29] MEDS ORDERED: POLYETHYLENE GLYCOL 17 GM (MIRALAX) PACK PO PRN (16:45)
[2016-10-29] MEDS ORDERED: HYPROMELLOSE OU PRN (16:45)
[2016-10-29] MEDS ORDERED: DEXTRAN OU PRN (16:45)
[2016-10-29] MEDS ORDERED: [UNRECOGNIZED DRUG - OTHER] PO PRN (16:45)
[2016-10-29] MEDS ORDERED: ACETAMINOPHEN PO PRN (16:45)
[2016-10-29 16:47] LABS: ALANINE AMINOTRANSFERASE 8 U/L (0-55); ALBUMIN 3.2 G/DL (3.2-4.5); ANION GAP 8 MMOL/L (5-14); ASPARTATE AMINO TRANSFERASE 10 U/L (5-34); BILIRUBIN,TOTAL 0.8 MG/DL (0.1-1.0); BLOOD UREA NITROGEN 22 MG/DL (7-18); BUN/CREATININE RATIO 25; CALCIUM 8.6 MG/DL (8.5-10.1); CARBON DIOXIDE 26 MMOL/L (21-32); CHLORIDE 103 MMOL/L (98-107); CREATININE SERUM 0.89 MG/DL (0.60-1.30); GFR ESTIMATED > 60; GLUCOSE 91 MG/DL (70-105); POTASSIUM 4.6 MMOL/L (3.6-5.0); SODIUM 137 MMOL/L (135-145)
[2016-10-29] MEDS ORDERED: ARTIFICAL TEARS 0.4 ML UNIT DOSE (REFRESH PLUS) OU PRN (17:30)
[2016-10-29] MEDS ORDERED: HYDROcodone/APAP 7.5MG-325 MG/15 ML (LORTAB) UDC PO PRN (17:30)
[2016-10-29] MEDS ORDERED: ONDANSETRON 8 MG (ZOFRAN) ORAL DISSOLVE TAB PO PRN (17:30)
[2016-10-29] MEDS: morphine INJ 4 MG/ML 1 ML (VIAL/SYRINGE) IVP PRN (18:19)
[2016-10-29 20:00] VITALS: BP 148/77
[2016-10-29] MEDS: MELATONIN 3 MG TABLET PO SCH (20:33)
[2016-10-29] MEDS: PANTOPRAZOLE 40 MG (PROTONIX) TAB PO SCH (20:33)
[2016-10-29] MEDS: CARVEDILOL 12.5 MG (COREG) TABLET PO SCH (20:33)
[2016-10-29] MEDS ORDERED: NON-FORMULARY MEDICATION 1 EA EA (Carvedilol 12.5 MG) PO SCH (21:00)
[2016-10-29] MEDS ORDERED: MAGIC MOUTHWASH MM SCH (21:00)
[2016-10-29] MEDS ORDERED: NON-FORMULARY MEDICATION 1 EA EA (Melatonin/Pyridoxine (Melatonin 5 mg Tablet) 5 MG) PO SCH (21:00)
[2016-10-29 21:24] LABS: BILIRUBIN,URINE NEGATIVE (NEGATIVE); KETONES,URINE NEGATIVE (NEGATIVE); LEUKOCYTE ESTERASE ,URINE NEGATIVE (NEGATIVE); NITRITE,URINE NEGATIVE (NEGATIVE); PH,URINE 6.5 (5-9); PROTEIN,URINE NEGATIVE (NEGATIVE); UROBILINOGEN,URINE 1 MG/DL (NORMAL)
[2016-10-29 21:41] LABS: WBC,URINE RARE /HPF
[2016-10-30] MEDS: AA 4.25% W/LYTES IN D5W IV SOL 1,000 ML IV SCH ×4 (00:36→15:32)
[2016-10-30] MEDS: PANTOPRAZOLE 40 MG (PROTONIX) TAB PO SCH ×2 (06:35→21:18)
[2016-10-30] MEDS: LEVOTHYROXINE 100 MCG (LEVOTHROID) TAB PO SCH (06:35)
[2016-10-30] MEDS: CARVEDILOL 12.5 MG (COREG) TABLET PO SCH ×2 (08:54→21:18)
[2016-10-30 09:00] VITALS: BP 134/68
[2016-10-30] MEDS ORDERED: DIGOXIN 0.125 MG (LANOXIN) TAB PO SCH (09:00)
[2016-10-30] MEDS ORDERED: ATORVASTATIN 10 MG (LIPITOR) TABLET PO SCH (09:00)
[2016-10-30] MEDS ORDERED: NON-FORMULARY MEDICATION 1 EA EA (Pravastatin Sodium 40 MG) PO SCH (09:00)
--- NOTE | 2016-10-30 12:39 | Oncology Progress Note ---
Subjective Subjective/Events-last exam Feeling better. Tumor bust open last night with bleeding. Now felt less pressure and less pain this morning. Data Review Labs Laboratory Tests 10/29/16 16:05 Laboratory Tests 10/29/16 16:05: Alkaline Phosphatase 39L, Blood Urea Nitrogen 22H, Hematocrit 28L, Hemoglobin 9.1L, Lymphocytes # (Auto) 0.7L, Mean Corpuscular Volume 100H, Neutrophils (%) ( Auto) 76H, Red Blood Count 2.77L, Red Cell Distribution Width 18.0H, Total Protein 6.0L 10/29/16 20:00: Urine Specific [place] 1.015L Physical Exam Vital Signs Vital Sign - Last 12Hours 10/29/16 14:10 Temp 96.0 Pulse 71 Resp 20 B/P 143/72 Pulse Ox 100 O2 Delivery Room Air Capillary Refill : General Appearance: No Apparent Distress HEENT: PERRL/EOMI Other (large tumor left lower jaw. No active bleeding) Respiratory: Chest Non Tender Lungs Clear Cardiovascular: Regular Rate, Rhythm No Edema Gastrointestinal: Non Tender Soft Extremity: Non Tender No Calf Tenderness No Pedal Edema Neurologic/Psychiatric: Alert Oriented x3 Impression & Plan Impression & Plan 1. 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 Status post prior surgery and Radiation in 2007; Radiation Oncology has evaluated the patient and stated that he had a very high dose of radiation and has significant bone loss and re- radiation is not recommended. He is on Carbo+5FU, last dose 1 week ago. b. Should chemotherapy become difficult to manage for this patient, he will be able to receive Opdivo or Keytruda which are both approved for recurrent head and neck cancer that has progressed on [place] therapy. 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 Poor po intake, dehydration and pain control issue. Insufficient care at home. Pt lives by himself at home. a. IV clinimix b. Pain control with IV morphine PRN 3. Heart Disease; History of CAD- a. Status post Pacemaker placement; b. Not on anticoagulation because of bleeding risk/ history PUD; 4. Hypertension 5. Hypothyroidiam- on Levothyroxine; 6. History of PUD -- a. 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 DVT prophylaxis: SCD 8. slag production worker consult for placement Clinical Quality Measures DVT/VTE Risk/Contraindication: Risk Factor Score Per Nursin RFS Level Per Nursing on Admit: 4+=Very High BETHANIE FERREIRA MD Oct 30, 2016 12:38
[2016-10-30 21:15] VITALS: BP 146/71
[2016-10-30] MEDS: morphine INJ 4 MG/ML 1 ML (VIAL/SYRINGE) IVP PRN (21:18)
[2016-10-30] MEDS: MELATONIN 3 MG TABLET PO SCH (21:18)
[2016-10-31] MEDS: AA 4.25% W/LYTES IN D5W IV SOL 1,000 ML IV SCH ×4 (00:25→17:38)
[2016-10-31] MEDS: LEVOTHYROXINE 100 MCG (LEVOTHROID) TAB PO SCH (06:48)
[2016-10-31] MEDS: PANTOPRAZOLE 40 MG (PROTONIX) TAB PO SCH ×2 (06:48→20:11)
[2016-10-31 09:00] VITALS: BP 123/66
[2016-10-31] MEDS ORDERED: PATIENT MAY USE OWN MEDS, ALL MC SCH (11:15)
[2016-10-31] MEDS ORDERED: ONDANSETRON 8 MG (ZOFRAN) TABLET (NON-STOCK ITEM) PO PRN (11:30)
--- NOTE | 2016-10-31 18:25 | Oncology Progress Note ---
Subjective Subjective/Events-last exam No more bleeding today. Less pain Able to drink some ensure today Data Review Labs Laboratory Tests 10/29/16 16:05: Alkaline Phosphatase 39L, Blood Urea Nitrogen 22H, Hematocrit 28L, Hemoglobin 9.1L, Lymphocytes # (Auto) 0.7L, Mean Corpuscular Volume 100H, Neutrophils (%) ( Auto) 76H, Red Blood Count 2.77L, Red Cell Distribution Width 18.0H, Total Protein 6.0L 10/29/16 20:00: Urine Specific [place] 1.015L Physical Exam Vital Signs Vital Sign - Last 12Hours 10/29/16 14:10 Temp 96.0 Pulse 71 Resp 20 B/P 143/72 Pulse Ox 100 O2 Delivery Room Air Capillary Refill : General Appearance: No Apparent Distress HEENT: PERRL/EOMI Other (large tumor of left lower jaw covered with dressing) Neck: Supple Respiratory: Chest Non Tender Lungs Clear Cardiovascular: Regular Rate, Rhythm No Edema Gastrointestinal: Non Tender Soft Neurologic/Psychiatric: Alert Oriented x3 Impression & Plan Impression & Plan 1. 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 Status post prior surgery and Radiation in 2007; Radiation Oncology has evaluated the patient and stated that he had a very high dose of radiation and has significant bone loss and re- radiation is not recommended. He is on Carbo+5FU, last dose 1 week ago. b. Should chemotherapy become difficult to manage for this patient, he will be able to receive Opdivo or Keytruda which are both approved for recurrent head and neck cancer that has progressed on [place] therapy. 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 Poor po intake, dehydration and pain control issue. Insufficient care at home. Pt lives by himself at home. a. IV clinimix b. Pain control with IV morphine PRN 3. Heart Disease; History of CAD- a. Status post Pacemaker placement; b. Not on anticoagulation because of bleeding risk/ history PUD; 4. Hypertension 5. Hypothyroidiam- on Levothyroxine; 6. History of PUD -- a. 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 DVT prophylaxis: SCD 8. 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
[2016-10-31] MEDS: MELATONIN 3 MG TABLET PO SCH (20:11)
[2016-10-31 20:21] VITALS: BP 122/75
[2016-10-31] MEDS: morphine INJ 4 MG/ML 1 ML (VIAL/SYRINGE) IVP PRN (22:37)
[2016-11-01] MEDS: AA 4.25% W/LYTES IN D5W IV SOL 1,000 ML IV SCH ×3 (01:39→17:52)
[2016-11-01] MEDS: LEVOTHYROXINE 100 MCG (LEVOTHROID) TAB PO SCH (06:07)
[2016-11-01] MEDS: PANTOPRAZOLE 40 MG (PROTONIX) TAB PO SCH ×2 (06:14→21:07)
[2016-11-01] MEDS: DIGOXIN 0.125 MG (LANOXIN) TAB PO SCH (08:08)
[2016-11-01 08:44] VITALS: BP 136/68
--- NOTE | 2016-11-01 16:44 | Oncology Progress Note ---
Subjective Subjective/Events-last exam No new complaints; Agrees to go to [facility]; Data Review Labs Laboratory Tests 11/02/16 09:10 Laboratory Tests 11/02/16 09:10: Blood Urea Nitrogen 44H, Chloride Level 97L, Glucose Level 117H, Hematocrit 26L , Hemoglobin 8.5L, Mean Corpuscular Volume 100H, Red Blood Count 2.62L, Red Cell Distribution Width 19.0H, Sodium Level 133L Physical Exam Vital Signs Vital Sign - Last 12Hours 10/29/16 14:10 Temp 96.0 Pulse 71 Resp 20 B/P 143/72 Pulse Ox 100 O2 Delivery Room Air Capillary Refill : VS - Last 72 Hours, by Label 10/30/16 10/31/16 10/31/16 11/01/16 21:15 09:00 20:21 08:44 Temp 97.6 97.0 97.0 97.2 Pulse 82 72 81 81 Resp 18 20 16 16 B/P 146/71 123/66 122/75 136/68 Pulse Ox 99 94 97 98 O2 Delivery Room Air Room Air Room Air Room Air 11/01/16 11/02/16 21:00 08:08 Temp 96.5 96.0 Pulse 75 78 Resp 20 20 B/P 120/58 133/63 Pulse Ox 96 97 O2 Delivery Room Air Room Air General Appearance: No Apparent Distress HEENT: Other (Left facial mass with ulceration present;) Respiratory: Lungs Clear Cardiovascular: Regular Rate, Rhythm No Edema No JVD Gastrointestinal: Normal Bowel Sounds No Pulsatile Mass Non Tender Soft Rectal: Deferred Back: Normal Inspection No CVA Tenderness Neurologic/Psychiatric: Alert Oriented x3 Impression & Plan Impression & Plan 1. 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 Status post prior surgery and Radiation in 2007; Radiation Oncology has evaluated the patient and stated that he had a very high dose of radiation and has significant bone loss and re- radiation is not recommended. He is on Carbo+5FU, last dose 1 week ago. b. Should chemotherapy become difficult to manage for this patient, he will be able to receive Opdivo or Keytruda which are both approved for recurrent head and neck cancer that has progressed on [place] therapy. 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 Poor po intake, dehydration and pain control issue. Insufficient care at home. Pt lives by himself at home. a. IV clinimix b. Pain control with IV morphine PRN 3. Heart Disease; History of CAD- a. Status post Pacemaker placement; b. Not on anticoagulation because of bleeding risk/ history PUD; 4. Hypertension 5. Hypothyroidiam- on Levothyroxine; 6. History of PUD -- a. 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 DVT prophylaxis: SCD 8. 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
[2016-11-01 21:00] VITALS: BP 120/58
[2016-11-01] MEDS: MELATONIN 3 MG TABLET PO SCH (21:08)
[2016-11-01] MEDS: morphine INJ 4 MG/ML 1 ML (VIAL/SYRINGE) IVP PRN (21:14)
[2016-11-01] MEDS ORDERED: CARVEDILOL 12.5 MG (COREG) TABLET ONE (22:16)
[2016-11-02] MEDS: AA 4.25% W/LYTES IN D5W IV SOL 1,000 ML IV SCH ×3 (01:25→19:03)
[2016-11-02] MEDS: morphine INJ 4 MG/ML 1 ML (VIAL/SYRINGE) IVP PRN ×2 (02:36→05:41)
[2016-11-02] MEDS: PANTOPRAZOLE 40 MG (PROTONIX) TAB PO SCH ×2 (05:42→20:19)
[2016-11-02] MEDS: LEVOTHYROXINE 100 MCG (LEVOTHROID) TAB PO SCH (05:42)
[2016-11-02 08:08] VITALS: BP 133/63
[2016-11-02] MEDS ORDERED: CARVEDILOL 12.5 MG (COREG) TABLET ONE (08:50)
[2016-11-02] MEDS: DIGOXIN 0.125 MG (LANOXIN) TAB PO SCH (09:04)
[2016-11-02 09:26] LABS: MEAN PLATELET VOLUME 8.6 FL (7.4-10.4); RED BLOOD COUNT 2.62 10^6/uL (4.35-5.85)
[2016-11-02 09:42] LABS: ANION GAP 8 MMOL/L (5-14); BLOOD UREA NITROGEN 44 MG/DL (7-18); BUN/CREATININE RATIO 58; CALCIUM 8.9 MG/DL (8.5-10.1); CARBON DIOXIDE 28 MMOL/L (21-32); CHLORIDE 97 MMOL/L (98-107); CREATININE SERUM 0.76 MG/DL (0.60-1.30); GFR ESTIMATED > 60; GLUCOSE 117 MG/DL (70-105); MAGNESIUM 1.9 MG/DL (1.8-2.4); POTASSIUM 4.9 MMOL/L (3.6-5.0); SODIUM 133 MMOL/L (135-145)
[2016-11-02] MEDS ORDERED: CARVEDILOL 12.5 MG (COREG) TABLET PO SCH (10:45)
--- NOTE | 2016-11-02 10:47 | Oncology Progress Note ---
Subjective Subjective/Events-last exam Patient is oriented to person and place but not to time and confusion is noted. He had 3 doses of morphine last night which may be contributing to his current confusion. Data Review Labs Laboratory Tests 11/02/16 09:10 Laboratory Tests 11/02/16 09:10: Blood Urea Nitrogen 44H, Chloride Level 97L, Glucose Level 117H, Hematocrit 26L , Hemoglobin 8.5L, Mean Corpuscular Volume 100H, Red Blood Count 2.62L, Red Cell Distribution Width 19.0H, Sodium Level 133L Physical Exam Vital Signs Vital Sign - Last 12Hours 10/29/16 14:10 Temp 96.0 Pulse 71 Resp 20 B/P 143/72 Pulse Ox 100 O2 Delivery Room Air Capillary Refill : VS - Last 72 Hours, by Label 10/30/16 10/31/16 10/31/16 11/01/16 21:15 09:00 20:21 08:44 Temp 97.6 97.0 97.0 97.2 Pulse 82 72 81 81 Resp 18 20 16 16 B/P 146/71 123/66 122/75 136/68 Pulse Ox 99 94 97 98 O2 Delivery Room Air Room Air Room Air Room Air 11/01/16 11/02/16 21:00 08:08 Temp 96.5 96.0 Pulse 75 78 Resp 20 20 B/P 120/58 133/63 Pulse Ox 96 97 O2 Delivery Room Air Room Air General Appearance: No Apparent Distress HEENT: PERRL/EOMI Other (ulcerated lesion left face.) Respiratory: Lungs Clear No Accessory Muscle Use No Respiratory Distress Cardiovascular: Regular Rate, Rhythm No JVD Gastrointestinal: Normal Bowel Sounds No Organomegaly No Pulsatile Mass Non Tender Soft Rectal: Deferred Back: Normal Inspection No CVA Tenderness No Vertebral Tenderness Neurologic/Psychiatric: Other (confusion noted;) Impression & Plan Impression & Plan 1. 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 Status post prior surgery and Radiation in 2007; Radiation Oncology has evaluated the patient and stated that he had a very high dose of radiation and has significant bone loss and re- radiation is not recommended. He is on Carbo+5FU, last dose 1 week ago. b. Should chemotherapy become difficult to manage for this patient, he will be able to receive Opdivo or Keytruda which are both approved for recurrent head and neck cancer that has progressed on [place] therapy. 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 Poor po intake, dehydration and pain control issue. Insufficient care at home. Pt lives by himself at home. a. IV clinimix b. Discontinue IV morphine and start 12.5mcg Fentanyl Patch. 3. Heart Disease; History of CAD- a. Status post Pacemaker placement; b. Not on anticoagulation because of bleeding risk/ history PUD; 4. Hypertension 5. Hypothyroid- on Levothyroxine; 6. History of PUD -- a. 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 DVT prophylaxis: SCD 8. 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 Clinical Quality Measures DVT/VTE Risk/Contraindication: Risk Factor Score Per Nursin RFS Level Per Nursing on Admit: 4+=Very High JOYA ALONSO MD Nov 02, 2016 10:47
--- NOTE | 2016-11-02 11:10 | Physical Therapy Evaluation ---
PT Evaluation-General Medical Diagnosis Admission Date Nov 01, 2016 at 11:35 Medical Diagnosis: oral cancer Onset Date: Nov 01, 2016 Therapy Diagnosis Therapy Diagnosis: generalized weakness and debility Height/Weight Height (Feet): 6 Height (Inches): 0.00 Weight (Pounds): 147 Weight (Ounces): 3.2 Precautions Precautions/Isolations: Fall Prevention, Standard Precautions Referral Physician: Oscar Reason for Referral: Evaluation/Treatment Medical History Pertinent Medical History: CAD, HTN, Hypothroidism Additional Medical History oral cancer Current History home health nursing deemed patient is unable to safely care for self and requires placement Social History Home: Single Level Current Living Status: Alone will transfer to [place] upon dismissal from hospital Prior/Core FIM Prior Level of Function Functional [place] Measure 0=Not Assessed/NA 4=Minimal Assistance 1=Total Assistance 5=Supervision or Setup 2=Maximal Assistance 6=Modified [place] 3=Moderate Assistance 7=Complete [place] Bed Mobility: 6 Transfers (B,C,W/C) (FIM): 6 Gait: 6 PT Evaluation-Current Subjective Patient is in recliner with sitter present due to patients increased confusion. Pain Numeric Pain Scale: 0-No Pain Location: No Pain Reported Objective Patient Orientation: Confused Problem Solving: Poor ROM/Strength ROM Lower Extremities bilateral LE WFL Strenght Lower Extremities bilateral LE WFL Integumentary/Posture Integumentary refer to nursing notes Bowel Incontinence: No Bladder Incontinence: No Posture WNL Neuromuscular (Tone, Coordination, Reflexes) diminished coordination Sensory Vision: Functional Hearing: Impaired Sensation Right Lower Extremit: Impaired Sensation Left Lower Extremity: Impaired Transfers Functional [place] Measure 0=Not Assessed/NA 4=Minimal Assistance 1=Total Assistance 5=Supervision or Setup 2=Maximal Assistance 6=Modified [place] 3=Moderate Assistance 7=Complete [place] Transfers (B, C, W/C) (FIM): 4 Scootin Sit to/from Stand: [address] and CGA for safety Gait Mode of Locomotion: Walk Anticipated Mode of Locomotion: Walk Gait (FIM): 4 Distance (FIM): 3=150 ft Distance: 200' x 2 Gait Level of Assist: 4 Gait Persons Needed: 1 Gait Assistive Device: FWW Comments/Gait Description slightly unsteady with self correction Balance Sitting Static: Normal Sitting Dynamic: Normal Standing Static: Fair Standing Dynamic: Fair Assessment/Needs 81 y.o. male, will benefit from short term skilled PT to address functional mobility. Patient will dismiss to NH from hospital stay. 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 Goals Time Frame: Nov 12, 2016 Transfers (B,C,W/C) (FIM): 5 Gait (FIM): 5 Gait distance (FIM): 3=150 ft Gait Level of Assist: 5 Gait Assistive Device: FWW PT Plan Problem List Problem List: Activity Tolerance, Functional Strength, Safety Treatment/Plan Treatment Plan: Continue Plan of Care Treatment Plan: Bed Mobility, Education, Functional Activity [place], Functional Strength, Gait, Safety, Therapeutic Exercise, Transfers Treatment Duration: Nov 12, 2016 # of days/week 5-6 Visits Per Week: 5-6 Pt/Family Agrees w/Plan: Yes Safety Risks/Education Patient Education: Safety Issues Teaching Recipient: Patient Teaching Methods: Discussion Response to Teaching: Reinforcement Needed Discharge Recommendations Therapy D/C Recommendations: Alf Placement Time/GCodes Time In: 1040 Time Out: 1055 Total Billed Treatment Time: 15 Total Billed Treatment 1 visit EVLowC 15 min FRANKIE DONALDSON PT Nov 02, 2016 11:10
[2016-11-02] MEDS: CARVEDILOL 12.5 MG (COREG) TABLET PO SCH (20:18)
[2016-11-02] MEDS: MELATONIN 3 MG TABLET PO SCH (20:18)
[2016-11-02] MEDS ORDERED: fentaNYL PATCH 12 MCG (DURAGESIC) TD SCH (20:45)
[2016-11-02 21:00] VITALS: BP 138/51
[2016-11-03] VITALS (8 sets, daily range): BP systolic 90–151; BP diastolic 45–85
[2016-11-03] MEDS: AA 4.25% W/LYTES IN D5W IV SOL 1,000 ML IV SCH ×3 (02:50→19:38)
[2016-11-03] MEDS: PANTOPRAZOLE 40 MG (PROTONIX) TAB PO SCH ×2 (04:59→21:33)
[2016-11-03] MEDS: LEVOTHYROXINE 100 MCG (LEVOTHROID) TAB PO SCH (04:59)
[2016-11-03 06:13] LABS: BASOPHILS % (AUTO) 0 % (0-10); EOSINOPHILS # (AUTO) 0.1 10^3/uL (0.0-0.3); EOSINOPHILS % (AUTO) 2 % (0-10); LYMPHOCYTES # (AUTO) 0.6 X 10^3 (1.0-4.0); LYMPHOCYTES % (AUTO) 14 % (12-44); MEAN CORPUSCULAR HEMOGLOBIN 33 PG (25-34); MEAN CORPUSCULAR HGB CONC 33 G/DL (32-36); MEAN CORPUSCULAR VOLUME 100 FL (80-99); MEAN PLATELET VOLUME 8.9 FL (7.4-10.4); MONOCYTES # (AUTO) 0.5 X 10^3 (0.0-1.0); MONOCYTES % (AUTO) 12 % (0-12); NEUTROPHILS # (AUTO) 2.8 X 10^3 (1.8-7.8); NEUTROPHILS % (AUTO) 72 % (42-75); PLATELET COUNT 171 10^3/uL (130-400); RED BLOOD COUNT 2.41 10^6/uL (4.35-5.85); WHITE BLOOD COUNT 3.9 10^3/uL (4.3-11.0)
[2016-11-03 07:07] LABS: ANION GAP 6 MMOL/L (5-14); BLOOD UREA NITROGEN 41 MG/DL (7-18); BUN/CREATININE RATIO 55; CALCIUM 8.5 MG/DL (8.5-10.1); CARBON DIOXIDE 27 MMOL/L (21-32); CHLORIDE 99 MMOL/L (98-107); CREATININE SERUM 0.74 MG/DL (0.60-1.30); GFR ESTIMATED > 60; GLUCOSE 124 MG/DL (70-105); POTASSIUM 4.5 MMOL/L (3.6-5.0); SODIUM 132 MMOL/L (135-145)
[2016-11-03] MEDS ORDERED: NS IV 500 ML 500 ML IV SCH (08:12)
[2016-11-03] MEDS: DIGOXIN 0.125 MG (LANOXIN) TAB PO SCH (08:26)
[2016-11-03] MEDS: CARVEDILOL 12.5 MG (COREG) TABLET PO SCH ×2 (08:27→21:33)
--- NOTE | 2016-11-03 09:35 | Physical Therapy Daily Note ---
PT Daily Note-Current Subjective Patient in bed pre tx, has a sitter, agrees to PT. Patient has no complaints of pain. Appearance Patient in recliner post tx, has nursing in room. Mental Status Patient Orientation: Confused Attachments: IV Transfers Functional [place] Measure 0=Not Assessed/NA 4=Minimal Assistance 1=Total Assistance 5=Supervision or Setup 2=Maximal Assistance 6=Modified [place] 3=Moderate Assistance 7=Complete IndependenceIRFPAI Quality Coding Scale 6 Independent with activity with or without an assistive device 5 Patient requires set up or clean up by helper. Patient completes activity by themselves 4 Supervision or touching assist (CGA). [place] provide cues , steadying assist 3 The helper provides less than half the effort to complete the activity 2 The helper provides more than half the effort to complete the activity 1 Dependent. The helper does all the effort to complete an activity 7 Patient refused to complete or attempt activity 9 The patient did not perform the activity before the current illness or injury 88 Not attempted due to Medical conditions or safety concerns Transfers (B, C, W/C) (FIM): 5 Scootin Rollin Supine to/from Sit: 6 Sit to/from Stand: 5 cues for safety and hand placement Gait Training Gait (FIM): 4 Distance: 300' Gait Level of Assist: 4 Gait Persons Needed: 1 Gait Assistive Device: FWW unsteady, retropulsive on occasion, tends to drift to the left and has to constantly readjust Exercises Seated Therapy Exercises: Ankle pumps, Long arc quads, Hip flexion Seated Reps: 20 Treatments ambulation, bed mobility and transfers, functional strengthening Assessment Current Status: Fair Progress improving endurance PT [facility] Goals Waste Disposal Leakage Tester Goals PT [facility] Goals Time Frame: Nov 12, 2016 Transfers (B,C,W/C) (FIM): 5 Gait (FIM): 5 Gait distance (FIM): 3=150 ft Gait Level of Assist: 5 Gait Assistive Device: FWW PT Plan Problem List Problem List: Activity Tolerance, Functional Strength, Safety, Balance, Gait, Transfer, Bed Mobility Treatment/Plan Treatment Plan: Continue Plan of Care Treatment Plan: Bed Mobility, Education, Functional Activity [place], Functional Strength, Gait, Safety, Therapeutic Exercise, Transfers Treatment Duration: Nov 12, 2016 Visits Per Week: 5-6 Safety Risks/Education Patient Education: Gait Training, Transfer Techniques, Safety Issues Teaching Recipient: Patient Teaching Methods: Demonstration, Discussion Response to Teaching: Reinforcement Needed Time/GCodes Time In: 910 Time Out: 930 Total Billed Treatment Time: 20 Total Billed Treatment 1 visit GT 20 min YOVANA ABDALLA PT Nov 03, 2016 09:34
--- NOTE | 2016-11-03 10:23 | Progress Note (SOAP) ---
Subjective Subjective/Events-last exam Reports weakness and dizziness. Patient has a nursing department chairperson present who states he had a near syncopal episode in the bathroom earlier this morning Objective Exam Vital Signs Date Time Temp Pulse Resp B/P Pulse Ox O2 Delivery O2 Flow Rate FiO2 11/03/16 09:00 96.4 69 20 90/45 100 Room Air 11/02/16 21:00 97.1 75 18 138/51 99 Room Air I & O 11/03/16 07:00 Intake Total 1540 ml Balance 1540 ml Capillary Refill : General Appearance: Chronically ill HEENT: Other (necrotic mass left jaw) Respiratory: Lungs Clear Cardiovascular: Regular Rate, Rhythm No JVD Gastrointestinal: normal bowel sounds non tender Neurologic/Psychiatric: Alert Oriented x3 No Motor/Sensory Deficits Results Lab Laboratory Tests 11/02/16 09:10 11/03/16 04:45 Laboratory Tests 11/03/16 04:45: Anion Gap 6, BUN/Creatinine Ratio 55, Basophils # (Auto) 0.0, Basophils (%) ( Auto) 0, Blood Urea Nitrogen 41H, Calcium Level 8.5, Carbon Dioxide Level 27, Chloride Level 99, Creatinine 0.74, Eosinophils # (Auto) 0.1, Eosinophils (%) ( Auto) 2, Estimat Glomerular Filtration Rate > 60, Glucose Level 124H, Hematocrit 24L, Hemoglobin 7.9L, Lymphocytes # (Auto) 0.6L, Lymphocytes (%) ( Auto) 14, Mean Corpuscular Hemoglobin 33, Mean Corpuscular Hemoglobin Concent 33 , Mean Corpuscular Volume 100H, Mean Platelet Volume 8.9, Monocytes # (Auto) 0.5 , Monocytes (%) (Auto) 12, Neutrophils # (Auto) 2.8, Neutrophils (%) (Auto) 72, Platelet Count 171, Potassium Level 4.5, Red Blood Count 2.41L, Red Cell Distribution Width 19.0H, Sodium Level 132L, White Blood Count 3.9L Assessment/Plan Assessment/Plan Assess & Plan/Chief Complaint 1. 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 Status post prior surgery and Radiation in 2007; Radiation Oncology has evaluated the patient and stated that he had a very high dose of radiation and has significant bone loss and re- radiation is not recommended. He is on Carbo+5FU, last dose 1 week ago. b. Should chemotherapy become difficult to manage for this patient, he will be able to receive Opdivo or Keytruda which are both approved for recurrent head and neck cancer that has progressed on [place] therapy. 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 Poor po intake, dehydration and pain control issue. Insufficient care at home. Pt lives by himself at home. a. IV clinimix b. Has 12.5mcg Fentanyl Patch. 3. Symptomatic anemia--transfuse 2 units packed RBCs. a check stool for occult blood 4. Heart Disease; History of CAD- a. Status post Pacemaker placement; b. Not on anticoagulation because of bleeding risk/ history PUD; 5. Hypertension 6. Hypothyroid- on Levothyroxine; 7. History of PUD -- a. 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 DVT prophylaxis: SCD 9. 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 Clinical Quality Measures DVT/VTE Risk/Contraindication: Risk Factor Score Per Nursin RFS Level Per Nursing on Admit: 4+=Very High JOYA ALONSO MD Nov 03, 2016 10:23
[2016-11-03] MEDS ORDERED: FUROSEMIDE 40 MG/4 ML INJ (LASIX) IVP NR (10:30)
[2016-11-03] MEDS ORDERED: ACETAMINOPHEN 650 MG SUPP (TYLENOL) PR NR (10:30)
[2016-11-03] MEDS: MELATONIN 3 MG TABLET PO SCH (21:32)
[2016-11-04] MEDS: AA 4.25% W/LYTES IN D5W IV SOL 1,000 ML IV SCH (04:12)
[2016-11-04 05:47] LABS: BASOPHILS % (AUTO) 0 % (0-10); EOSINOPHILS # (AUTO) 0.1 10^3/uL (0.0-0.3); EOSINOPHILS % (AUTO) 2 % (0-10); LYMPHOCYTES # (AUTO) 0.4 X 10^3 (1.0-4.0); LYMPHOCYTES % (AUTO) 8 % (12-44); MEAN CORPUSCULAR HEMOGLOBIN 32 PG (25-34); MEAN CORPUSCULAR HGB CONC 33 G/DL (32-36); MEAN CORPUSCULAR VOLUME 97 FL (80-99); MEAN PLATELET VOLUME 8.9 FL (7.4-10.4); MONOCYTES # (AUTO) 0.7 X 10^3 (0.0-1.0); MONOCYTES % (AUTO) 15 % (0-12); NEUTROPHILS # (AUTO) 3.5 X 10^3 (1.8-7.8); NEUTROPHILS % (AUTO) 75 % (42-75); PLATELET COUNT 182 10^3/uL (130-400); RED BLOOD COUNT 3.12 10^6/uL (4.35-5.85); RED CELL DISTRIBUTION WIDTH 19.6 % (10.0-14.5); WHITE BLOOD COUNT 4.7 10^3/uL (4.3-11.0)
[2016-11-04 06:14] LABS: ANION GAP 9 MMOL/L (5-14); BLOOD UREA NITROGEN 41 MG/DL (7-18); BUN/CREATININE RATIO 54; CALCIUM 8.6 MG/DL (8.5-10.1); CARBON DIOXIDE 26 MMOL/L (21-32); CHLORIDE 98 MMOL/L (98-107); CREATININE SERUM 0.76 MG/DL (0.60-1.30); GFR ESTIMATED > 60; GLUCOSE 111 MG/DL (70-105); POTASSIUM 4.4 MMOL/L (3.6-5.0); SODIUM 133 MMOL/L (135-145)
[2016-11-04] MEDS: PANTOPRAZOLE 40 MG (PROTONIX) TAB PO SCH (06:31)
[2016-11-04] MEDS: LEVOTHYROXINE 100 MCG (LEVOTHROID) TAB PO SCH (06:31)
[2016-11-04 06:45] VITALS: BP 130/68
[2016-11-04] MEDS: CARVEDILOL 12.5 MG (COREG) TABLET PO SCH (08:27)
[2016-11-04] MEDS: DIGOXIN 0.125 MG (LANOXIN) TAB PO SCH (08:27)
[2016-11-04 09:01] VITALS: BP 130/68
--- NOTE | 2016-11-04 09:27 | Physical Therapy Daily Note ---
PT Daily Note-Current Subjective Patient is up with sitter in room. Agrees to PT. Pain Numeric Pain Scale: 0-No Pain Location: No Pain Reported Mental Status Patient Orientation: Person, Time, Situation Transfers Functional [place] Measure 0=Not Assessed/NA 4=Minimal Assistance 1=Total Assistance 5=Supervision or Setup 2=Maximal Assistance 6=Modified [place] 3=Moderate Assistance 7=Complete IndependenceIRFPAI Quality Coding Scale 6 Independent with activity with or without an assistive device 5 Patient requires set up or clean up by helper. Patient completes activity by themselves 4 Supervision or touching assist (CGA). [place] provide cues , steadying assist 3 The helper provides less than half the effort to complete the activity 2 The helper provides more than half the effort to complete the activity 1 Dependent. The helper does all the effort to complete an activity 7 Patient refused to complete or attempt activity 9 The patient did not perform the activity before the current illness or injury 88 Not attempted due to Medical conditions or safety concerns Transfers (B, C, W/C) (FIM): 5 Scootin Sit to/from Stand: 5 Gait Training Gait (FIM): 5 Distance (FIM): 3=150 ft Distance: 500' Gait Level of Assist: 5 Gait Assistive Device: FWW safe and functional Assessment Patient to dismiss to [facility] on this date for continued care. PT Veterinary Nurse Goals Half-Way Goals PT Veterinary Nurse Goals Time Frame: Nov 12, 2016 Transfers (B,C,W/C) (FIM): 5 Gait (FIM): 5 Gait distance (FIM): 3=150 ft Gait Level of Assist: 5 Gait Assistive Device: FWW PT Plan Treatment/Plan Treatment Plan: Discontinue PT Treatment Plan: Bed Mobility, Education, Functional Activity [place], Functional Strength, Gait, Safety, Therapeutic Exercise, Transfers Treatment Duration: Nov 12, 2016 Visits Per Week: 5-6 Time/GCodes Time In: 907 Time Out: 917 Total Billed Treatment Time: 10 Total Billed Treatment 1 visit GT 10 min FRANKIE DONALDSON PT Nov 04, 2016 09:27
[2016-11-04] MEDS ORDERED: ONDA8TAB12 PO (12:16)
[2016-11-04] MEDS ORDERED: FEN12TD TD (12:16)
[2016-11-04] MEDS ORDERED: POLY17PO6 PO (12:16)
[2016-11-04] MEDS ORDERED: MAGIC MOUTHWASH MM (12:16)
--- NOTE | 2016-11-04 12:23 | Discharge Inst-Skilled Nursing ---
Discharge Inst-Skilled NF Patient Instructions Patient Problems: Recurrent Left Jaw Cancer Chronic Cancer Pain Debility Consult/Follow Up/Orders Follow Up Appt.: Oncology 1 week [facility] Skilled NF Admit to: [facility] Certification (SNF) I certify that SNF services are required to be given on an inpatient basis because of the above named patient's need for [place] [facility] care on a continuing basis for the conditions(s) for which he/she was receiving inpatient hospital services prior to his/her transfer to the SNF. Detention Facility Order: Store Shopper-Evaluate & Treat, Physical Therapy-Evaluate & Treat Discharge Diet: No Restrictions New & Resume Previous Orders Joya Moore Nov 04, 2016 12:18 JOYA MOORE MD Nov 04, 2016 12:23
--- NOTE | 2016-11-04 19:37 | Discharge Summary ---
Diagnosis/Chief Complaint Date of Admission Nov 01, 2016 at 11:35 Date of Discharge Nov 04, 2016 at 14:50 Discharge Date: Admission Diagnosis Admission Diagnosis 1. 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 Status post prior surgery and Radiation in 2007; Radiation Oncology has evaluated the patient and stated that he had a very high dose of radiation and has significant bone loss and re- radiation is not recommended. He is on Carbo+5FU, last dose 1 week ago. b. Should chemotherapy become difficult to manage for this patient, he will be able to receive Opdivo or Keytruda which are both approved for recurrent head and neck cancer that has progressed on big sandy therapy. 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 Poor po intake, dehydration and pain control issue. Insufficient care at home. Pt lives by himself at home. a. IV clinimix b. Pain control with IV morphine PRN 3. Heart Disease; History of CAD- a. Status post Pacemaker placement; b. Not on anticoagulation because of bleeding risk/ history PUD; 4. Hypertension 5. Hypothyroidiam- on Levothyroxine; 6. History of PUD -- a. 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 Status post prior surgery and Radiation in 2007; Radiation Oncology has evaluated the patient and stated that he had a very high dose of radiation and has significant bone loss and re- radiation is not recommended. He is on Carbo+5FU, last dose 1 week ago. b. Should chemotherapy become difficult to manage for this patient, he will be able to receive Opdivo or Keytruda which are both approved for recurrent head and neck cancer that has progressed on big sandy therapy. 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 Poor po intake, dehydration and pain control issue. Insufficient care at home. Pt lives by himself at home. a. IV clinimix b. Has 12.5mcg Fentanyl Patch. 3. Symptomatic anemia--transfuse 2 units packed RBCs. a check stool for occult blood 4. Heart Disease; History of CAD- a. Status post Pacemaker placement; b. Not on anticoagulation because of bleeding risk/ history PUD; 5. Hypertension 6. Hypothyroid- on Levothyroxine; 7. History of PUD -- a. 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 He also reported on swallowing causing poor oral intake and dehydration. Discharge Summary Discharge Physical Examination Allergies: Coded Allergies: No Known Drug Allergies (Verified , 01/23/08) Vitals & I&Os Vital Signs Date Time Temp Pulse Resp B/P Pulse Ox O2 Delivery O2 Flow Rate FiO2 11/04/16 14:50 11/04/16 09:01 97.1 84 20 99 Room Air General Appearance: Alert, Oriented X3 HEENT: PERRLA Cardiovascular: Regular Rate, Normal S1, Normal S2 Abdominal: Normal Bowel Sounds, Soft Hospital Course He received IV hydration, narcotic analgesics and IV clinimix and showed improvement. Patient's hemoglobin dropped to 7.9 and patient had near syncopal episode with increased weakness and dizziness. Anemia was likely related to recent chemotherapy. He was transfused with 2 units PRBCs and hemoglobin increased to 9.9. Patient felt much better and was stable for discharge to [facility] in [facility]. Labs Laboratory Tests 11/03/16 04:45 11/04/16 04:00 Pending Labs Laboratory Tests 11/04/16 12:39: Lab Scanned Report Transfusion Reaction Form Discharge Condition at discharge Stable and improved from admission Instructions to patient/family Please see electonic discharge instructions given to patient. Discharge Medications Reviewed and agree with Discharge Medication list on patient's Discharge Instruction sheet Clinical Quality Measures DVT/VTE Risk/Contraindication: Risk Factor Score Per Nursin RFS Level Per Nursing on Admit: 4+=Very High JOYA ALONSO MD Nov 04, 2016 19:37
== END 2016-11-04 14:50 | DRG 544 ==
LOC: 4TH 11:35 → INTOOBSV 14:17 → UNDOADMOB 14:17 → 4TH 14:17 → INTOOBSV 11-01 11:35 → OBSVTOIN 11-01 11:35 → UNDODISIN 11-04 14:50
PROVIDERS: ADMIT Internal Medicine Hematology & Oncology; ATTEND Internal Medicine Hematology & Oncology
DX: C41.1 Malignant neoplasm of mandible (principal); G89.3 Neoplasm related pain (acute) (chronic); E86.0 Dehydration; R13.10 Dysphagia, unspecified; R63.4 Abnormal weight loss; I25.10 Atherosclerotic heart disease of native coronary artery without angina pectoris; I10 Essential (primary) hypertension; E03.9 Hypothyroidism, unspecified; D64.9 Anemia, unspecified; Z95.0 Presence of cardiac pacemaker; Z87.11 Personal history of peptic ulcer disease; Z92.3 Personal history of irradiation
CPT/HCPCS: 36415; 80048; 80053; 81000; 83735; 85025; 85027; 86850; 86900; 86901; 86920; G0378

== ENCOUNTER 2016-11-20 19:15 | Emergency (ER) | payer MEDICARE ==
[~2016-11-20] VITALS: Ht 182.9 cm; Wt 65.8 kg
[~2016-11-20 19:15] MED LIST changes: +ACET325T49 PO; +DEXT1DRO7 OU; +FEN12TD TD; +HYDR118S10 PO; +MAGIC MOUTHWASH MM; +NFCAPE500T PO; +ONDA8TAB12 PO; +POLY17PO6 PO
[2016-11-20] MEDS ORDERED: NS IV 500 ML 500 ML IV ONE (19:25)
[2016-11-20 19:40] LABS: BASOPHILS % (AUTO) 0 % (0-10); EOSINOPHILS # (AUTO) 0.1 10^3/uL (0.0-0.3); EOSINOPHILS % (AUTO) 2 % (0-10); LYMPHOCYTES # (AUTO) 0.6 X 10^3 (1.0-4.0); LYMPHOCYTES % (AUTO) 7 % (12-44); MEAN CORPUSCULAR HEMOGLOBIN 33 PG (25-34); MEAN CORPUSCULAR HGB CONC 32 G/DL (32-36); MEAN CORPUSCULAR VOLUME 103 FL (80-99); MONOCYTES # (AUTO) 0.9 X 10^3 (0.0-1.0); MONOCYTES % (AUTO) 10 % (0-12); NEUTROPHILS # (AUTO) 7.1 X 10^3 (1.8-7.8); NEUTROPHILS % (AUTO) 81 % (42-75); PLATELET COUNT 156 10^3/uL (130-400); RED BLOOD COUNT 3.21 10^6/uL (4.35-5.85); RED CELL DISTRIBUTION WIDTH 19.7 % (10.0-14.5); WHITE BLOOD COUNT 8.8 10^3/uL (4.3-11.0)
[2016-11-20 19:58] LABS: ALANINE AMINOTRANSFERASE < 6 U/L (0-55); ANION GAP 10 MMOL/L (5-14); ASPARTATE AMINO TRANSFERASE 10 U/L (5-34); BLOOD UREA NITROGEN 27 MG/DL (7-18); BUN/CREATININE RATIO 26; CALCIUM 8.6 MG/DL (8.5-10.1); CARBON DIOXIDE 28 MMOL/L (21-32); CHLORIDE 102 MMOL/L (98-107); CREATININE SERUM 1.02 MG/DL (0.60-1.30); GFR ESTIMATED > 60; GLUCOSE 96 MG/DL (70-105); POTASSIUM 4.4 MMOL/L (3.6-5.0); SODIUM 140 MMOL/L (135-145); TOTAL PROTEIN 5.6 G/DL (6.4-8.2); hs C REACTIVE PROTEIN 5.53 MG/DL (0.00-0.50)
--- NOTE | 2016-11-20 20:05 | Diagnostic Imaging Report ---
Procedure: Chest 1 view, AP/PA only. Indication: Altered mental status. Comparison: 10/22/16. Findings: No focal airspace disease in the visualized lungs. Please note that the posterior lower lobes are poorly evaluated by portable radiography. No pleural effusion or pneumothorax. Stable cardiomegaly with left pectoral transvenous biventricular pacemaker/ICD. Stable right IJ Port-A-Cath. Impression: No acute cardiopulmonary process by portable radiography. Dictated by: Dictated on workstation # [id number]
[2016-11-20] MEDS ORDERED: FENT1PAT8 TD (20:09)
[2016-11-20] MEDS ORDERED: MORP100S3 PO (20:09)
--- NOTE | 2016-11-20 20:14 | Diagnostic Imaging Report ---
INDICATION: Left hand redness. No known trauma. COMPARISON: None available. TECHNIQUE: Three views of the left hand. FINDINGS: No osseous erosions or discrete cortical destruction to suggest osteomyelitis by radiography. 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 There is severe osteoarthritis at the thumb CMC articulation. IMPRESSION: 1. No radiographic evidence of osteomyelitis. If the patient has a ulcer on the hand, MRI of this region could be performed to assess for early findings of osteomyelitis. 2. Multifocal waboexhi-is-pdjjzq osteoarthritis, greatest at the thumb CMC. Dictated by: Dictated on workstation # [id number]
[2016-11-20 20:18] LABS: DIGOXIN 1.38 NG/ML (0.80-2.00); THYROID STIMULATING HORMONE 2.19 UIU/ML (0.35-4.94)
[2016-11-20 20:23] LABS: BILIRUBIN,URINE NEGATIVE (NEGATIVE); KETONES,URINE NEGATIVE (NEGATIVE); LEUKOCYTE ESTERASE ,URINE 1+ (NEGATIVE); NITRITE,URINE NEGATIVE (NEGATIVE); PH,URINE 6 (5-9); PROTEIN,URINE 1+ (NEGATIVE); UROBILINOGEN,URINE 1 MG/DL (NORMAL)
--- NOTE | 2016-11-20 20:26 | ED General ---
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 Pt has phases of combativeness and has rec'd Ativan 0630 and 1215. Pt was sleeping quietly at time of call and on EMS arrival. Pt awakens to name and answers questions. Nursing Sepsis Screen: No Definite Risk Source of Information: Patient, EMS, Shelter Records Exam Limitations: No Limitations History of Present Illness Time Seen by Provider: 19:14 Initial Comments This 81-year-old gentleman with terminal jaw cancer presents to the emergency room from [facility] via EMS with complaints of left hand pain and erythema as well as behavioral disturbances. He was reportedly very agitated this morning and received 2 doses of Ativan throughout the day. His last dose was in the noon hour. There is question about injury to the left hand from his agitated/combative episode this morning. He is now rather somnolent. He has also been delusional or hallucinating about his father being a criminal and coming back to settle things. Patient has had multiple episodes of delirium over the past couple of months per Dr. Salas. Allergies and Home Medications Allergies Coded Allergies: No Known Drug Allergies (Verified , 01/23/08) Home Medications Acetaminophen 325 Mg Tablet, 325-650 MG PO Q6H PRN for MILD PAIN, (Reported) Capecitabine 500 Mg Tablet, 500 MG PO UD, (Reported) 500MG BID X 7 DAYS THEN OFF 7 DAYS, STATES HE IS TO RESUME ON Tuesday11-02-16 Carvedilol 25 Mg Tablet, 12.5 MG PO BID, (Reported) TAKES 1/2 (25MG) TABLET Dextran 70/Hypromellose 1 Each Droperette, 1 DROP OU QID PRN for DRY EYES, ( Reported) Digoxin 125 Mcg Tablet, 125 MCG PO DAILY, (Reported) Fentanyl 1 Each Patch.td72, 25 MCG TD Q72H, (Reported) Levothyroxine Sodium 100 Mcg Tablet, 100 MCG PO DAILY, (Reported) Melatonin/Pyridoxine 1 Each Tablet, 5 MG PO HS, (Reported) Morphine Sulfate 100 Mg/5 Ml Solution, 10 MG PO Q1H PRN for PAIN, (Reported) Ondansetron HCl 8 Mg Tablet, 8 MG PO Q8H PRN for NAUSEA for 28 Days Prescribed by: JOYA ALONSO on 11/04/161215 Pantoprazole Sodium 40 Mg Tablet.dr, 40 MG PO BID, (Reported) Polyethylene Glycol 3350 17 Gm Powd.pack, 17 GM PO DAILY PRN for CONSTIPATION for 28 Days Prescribed by: JOYA ALONSO on 11/04/161215 Pravastatin Sodium 40 Mg Tablet, 40 MG PO DAILY, (Reported) Quetiapine Fumarate 50 Mg Tablet, 50 MG PO HS, #14 Prescribed by: SEAN ERAZO on 11/20/162123 [Magic Mouthwash] ELIXIR, 15-30 ML MM BID Prescribed by: JOYA ALONSO on 11/04/161215 Constitutional: see HPI EENTM: see HPI Respiratory: no symptoms reported Cardiovascular: no symptoms reported Gastrointestinal: no symptoms reported Genitourinary: no symptoms reported Musculoskeletal: see HPI Skin: see HPI Psychiatric/Neurological: See HPI Past Tyfkbaq-Vvuutu-Wcrboo Hx Patient Social History Alcohol Use: Denies Use Recreational Drug Use: No Smoking Status: Unknown if Ever Smoked Recent Foreign Travel: No Contact w/Someone Who Travel: No Recent Infectious Disease Expo: No Recent Hopitalizations: No Immunizations Up To Date Tetanus Booster (TDap): Unknown Date of Influenza Vaccine: Jun 29, 2016 Seasonal Allergies Seasonal Allergies: No Surgeries HX Surgeries: Yes (JAW REPAIR FOLLOWING CA, CARDIAC CATH AND STENTS) Surgeries: Cardiac, Coronary Stent, Pacemaker Respiratory Hx Respiratory Disorders: No Cardiovascular Hx Cardiac Disorders: Yes (PACEMAKER, STENTS) Cardiac Disorders: Atrial Fibrillation, Coronary Artery Disease, Heart Attack, High Cholesterol, Hypertension Neurological Hx Neurological Disorders: Yes Neurological Disorders: TIA Reproductive System Hx Reproductive Disorders: No Genitourinary Hx Genitourinary Disorders: No Gastrointestinal Hx Gastrointestinal Disorders: Yes (GASTRIC OUTLET OBSTRUCTION DUE TO ULCER) Gastrointestinal Disorders: Ulcer Musculoskeletal Hx Musculoskeletal Disorders: Yes Musculoskeletal Disorders: Arthritis, Chronic Back Pain Endocrine Hx Endocrine Disorders: Yes Endocrine Disorders: Hypothyroidsim, Diabetes, Non-Insulin dep HEENT HX ENT Disorders: Yes (ORAL CANCER) HEENT Disorders: Cataract Loss of Vision: Denies Hearing Impairment: Denies Cancer Hx Cancer: Yes (HEAD/NECK, THROAT/ORAL CANCER) Cancer: Oral Psychosocial Hx Psychiatric Problems: No Integumentary HX Skin/Integumentary Disorder: No Blood Transfusions Hx Blood Disorders: Yes (GI LOSS ANEMIA) Adverse Reaction to a Blood Tr: No Family Medical History Family Medial History: Family history: Arthritis 19 FATHER 19 MOTHER Myocardial infarction 19 FATHER ( AT 86) Physical Exam Vital Signs Vital Sign - Last 12Hours 11/20/16 19:15 Temp 97.4 Pulse 70 Resp 16 B/P (MAP) 141/71 Pulse Ox 98 O2 Delivery Room Air Capillary Refill : Less Than 3 Seconds General Appearance: No Apparent Distress, WD/WN, Other (somnolent) HEENT: PERRL/EOMI, Other (disfigurement of the left face due to jaw cancer) Neck: Normal Inspection Respiratory: Lungs Clear, Normal Breath Sounds, No Accessory Muscle Use, No Respiratory Distress Cardiovascular: Regular Rate, Rhythm, No Edema, No Murmur Gastrointestinal: Non Tender, Soft Extremity: Normal Inspection, No Pedal Edema Neurologic/Psychiatric: Alert, Normal Mood/Affect, Other (somnolent without any focal neurologic deficits) Skin: Normal Color, Warm/Dry, Other (skin changes to the left face related to cancer) Progress/Results/Core Measures Results/Orders Lab Results Laboratory Tests Test 11/20/16 19:30 11/20/16 20:15 Range/Units White Blood Count 8.8 4.3-11.0 10^3/uL Red Blood Count 3.21 L 4.35-5.85 10^6/uL Hemoglobin 10.7 L 13.3-17.7 G/DL Hematocrit 33 L 40-54 % Mean Corpuscular Volume 103 H 80-99 FL Mean Corpuscular Hemoglobin 33 25-34 PG Mean Corpuscular Hemoglobin Concent 32 32-36 G/DL Red Cell Distribution Width 19.7 H 10.0-14.5 % Platelet Count 156 130-400 10^3/uL Mean Platelet Volume 9.0 7.4-10.4 FL Neutrophils (%) (Auto) 81 H 42-75 % Lymphocytes (%) (Auto) 7 L 12-44 % Monocytes (%) (Auto) 10 0-12 % Eosinophils (%) (Auto) 2 0-10 % Basophils (%) (Auto) 0 0-10 % Neutrophils # (Auto) 7.1 1.8-7.8 X 10^3 Lymphocytes # (Auto) 0.6 L 1.0-4.0 X 10^3 Monocytes # (Auto) 0.9 0.0-1.0 X 10^3 Eosinophils # (Auto) 0.1 0.0-0.3 10^3/uL Basophils # (Auto) 0.0 0.0-0.1 10^3/uL Sodium Level 140 135-145 MMOL/L Potassium Level 4.4 3.6-5.0 MMOL/L Chloride Level 102 98-107 MMOL/L Carbon Dioxide Level 28 21-32 MMOL/L Anion Gap 10 5-14 MMOL/L Blood Urea Nitrogen 27 H 7-18 MG/DL Creatinine 1.02 0.60-1.30 MG/DL Estimat Glomerular Filtration Rate > 60 BUN/Creatinine Ratio 26 Glucose Level 96 70-105 MG/DL Calcium Level 8.6 8.5-10.1 MG/DL Total Bilirubin 1.0 0.1-1.0 MG/DL Aspartate Amino Transf (AST/SGOT) 10 5-34 U/L Alanine Aminotransferase (ALT/SGPT) < 6 0-55 U/L Alkaline Phosphatase 45 40-136 U/L C-Reactive Protein High Sensitivity 5.53 H 0.00-0.50 MG/DL Total Protein 5.6 L 6.4-8.2 G/DL Albumin 3.0 L 3.2-4.5 G/DL Thyroid Stimulating Hormone (TSH) 2.19 0.35-4.94 UIU/ML Free Thyroxine 1.21 0.70-1.48 NG/DL Digoxin Level 1.38 0.80-2.00 NG/ML Urine Color YELLOW Urine Clarity SLIGHTLY CLOUDY Urine pH 6 5-9 Urine Specific [place] 1.015 L 1.016-1.022 Urine Protein 1+ H NEGATIVE Urine Glucose (UA) NEGATIVE NEGATIVE Urine Ketones NEGATIVE NEGATIVE Urine Nitrite NEGATIVE NEGATIVE Urine Bilirubin NEGATIVE NEGATIVE Urine Urobilinogen 1 NORMAL MG/DL Urine Leukocyte Esterase 1+ H NEGATIVE Urine RBC (Auto) NEGATIVE NEGATIVE Urine RBC NONE /HPF Urine WBC 0-2 /HPF Urine Squamous Epithelial Cells 2-5 /HPF Urine Renal Epithelial Cells NONE /HPF Urine Crystals NONE /LPF Urine Bacteria NEGATIVE /HPF Urine Casts PRESENT /LPF Urine Hyaline Casts 0-2 H /LPF Urine Mucus SMALL H /LPF Urine Culture Indicated NO My Orders Orders - SEAN CONNORS MD Cbc With Automated Diff (11/20/16 19:25) Comprehensive Metabolic Panel (11/20/16 19:25) Digoxin (11/20/16 19:25) Thyroid Stimulating Hormone (11/20/16 19:25) Ua Culture If Indicated (11/20/16 19:25) Saline Lock/Iv-Start (11/20/16 19:25) Free T4 (Free Thyroxine) (11/20/16 19:25) Hs C Reactive Protein (11/20/16 19:25) Ns Iv 500 Ml (Sodium Chloride 0.9%) (11/20/16 19:25) Hand, Left, 3 Views (11/20/16 19:25) Chest 1 View, Ap/Pa Only (11/20/16 19:25) Quetiapine Immediate Release (Seroquel I (11/20/16 21:30) Medications Given in ED Current Medications Medications Dose Ordered Sig/Elle Route Start Time Stop Time Status Last Admin Dose Admin Sodium Chloride 500 ml @ 0 mls/hr Q0M ONCE IV 11/20/16 19:25 11/20/16 19:28 DC 11/20/16 19:38 999 MLS/HR Vital Signs/I&O Vital Sign - Last 12Hours 11/20/16 19:15 Temp 97.4 Pulse 70 Resp 16 B/P (MAP) 141/71 Pulse Ox 98 O2 Delivery Room Air Blood Pressure Mean: 94 Progress Note : Time: 21:19 Progress Note Case was reviewed with Dr. Salas. He would like the patient to return to the correction. I will administer Seroquel 50 mg prior to dismissal the help with the delirium and hallucinations. Dr. Salas would like me to provide a prescription as well. Left hand erythema has actually improved over the course of his ER stay. Patient denies any significant pain. He has no leukocytosis or fever to suggest significant infection. X-rays of the hand and chest were unremarkable for acute problems. Patient received a normal saline bolus of 500 mL as he reportedly did not have much to eat or drink today. Diagnostic Imaging Diagonstic Imaging: Xray Plain Films/CT/US/NM/MRI: hand Comments hand x-ray viewed by me and report reviewed. See report below: NAME: WILLAM DAVIES JR [facility] REC#: [id number] PT STATUS: REG ER : 1935 PHYSICIAN: SEAN CONNORS MD ADMIT DATE: 11/20/16/ER Draft Date of Exam:11/20/16 HAND, LEFT, 3 VIEWS INDICATION: Left hand redness. No known trauma. COMPARISON: None available. TECHNIQUE: Three views of the left hand. FINDINGS: No osseous erosions or discrete cortical destruction to suggest osteomyelitis by radiography. 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 There is severe osteoarthritis at the thumb CMC articulation. IMPRESSION: 1. No radiographic evidence of osteomyelitis. If the patient has a ulcer on the hand, MRI of this region could be performed to assess for early findings of osteomyelitis. 2. Multifocal joulofrg-kt-xylxob osteoarthritis, greatest at the thumb CMC. Dictated on workstation # [id number] Dict: 11/20/162009 Trans: 11/20/162013 PJE [id number] Interpreted by: TAMAR CUELLO MD Diagonstic Imaging: Xray Plain Films/CT/US/NM/MRI: chest Comments NAME: WILLAM DAVIES [facility] REC#: [id number] PT STATUS: REG ER : 1935 PHYSICIAN: SEAN CONNORS MD ADMIT DATE: 11/20/16/ER Signed Date of Exam: 11/20/16 CHEST 1 VIEW, AP/PA ONLY Procedure: Chest 1 view, AP/PA only. Indication: Altered mental status. Comparison: 10/22/16. Findings: No focal airspace disease in the visualized lungs. Please note that the posterior lower lobes are poorly evaluated by portable radiography. No pleural effusion or pneumothorax. Stable cardiomegaly with left pectoral transvenous biventricular pacemaker/ICD. Stable right IJ Port-A-Cath. Impression: No acute cardiopulmonary process by portable radiography. Dictated by: Dictated on workstation # [id number] Dict: 11/20/162001 Trans: 11/20/162037 PJE [id number] Interpreted by: TAMAR CUELLO MD Electronically signed by:TAMAR CUELLO MD 11/20/162037 Departure Impression Impression: Primary Impression: Delirium Additional Impressions: Left hand pain Jaw cancer Disposition: 01 HOME, SELF-CARE Condition: Improved Departure-Patient Inst. Decision time for Depature: 21:15 Referrals: SABRA SALAS MD (PCP/Family) Primary Care Physician Add. Discharge Instructions: Continue medications as prescribed. Use Seroquel as prescribed to help control confusion and agitation. Return to care if symptoms worsen. Follow up with Dr. Salas as soon as possible. DECREASE ATIVAN DOSE TO NO MORE THAN 0.5 MG PO EVERY 4 HOURS NEEDED FOR AGITATION. All discharge instructions reviewed with patient and/or family. Voiced understanding. Scripts Quetiapine Fumarate (Seroquel) 50 Mg Tablet 50 MG PO HS, #14 TAB Prov: SEAN CONNORS MD 11/20/16 Copy Copies To 1: SABRA SALAS MD, JOSHUA T MD Nov 20, 2016 20:26
[2016-11-20 21:07] LABS: HYALINE CASTS, URINE 0-2 /LPF; WBC,URINE 0-2 /HPF
[2016-11-20] MEDS ORDERED: QUET50TA PO (21:24)
[2016-11-20] MEDS ORDERED: QUEtiapine 25 MG (SEROquel) TAB IMMEDIATE RELEASE PO SCH (21:30)
[2016-11-20 23:35] VITALS: BP 141/71
--- OUTSIDE RECORDS SUMMARY | 2016-12-07 11:54 | XMS REPORT | Continuity of Care Document ---
Author Author [facility] Organization [facility] Address Unknown Phone Unavailable Care Team Providers Care Pharmacist Per Diem Name Role Phone Macario Salas PCP [phone] Source Comments Some departments are not documenting in the electronic medical record. If you do not see the information that you expected, contact Release of Information in the Health Information Management department at [phone] for further assistance in locating additional records.[facility] Active Allergies and Adverse Reactions No [...] Type Specialty Providers Description 09/27/2016 Telephone Otolaryngology George Andrews MD Navigation Follow Up Social History Tobacco Use Types Packs/Day Years Used Date Never Smoker Alcohol Use Drinks/Week oz/Week Comments No Last Filed Vital Signs Vital Sign Reading Time Taken Blood Pressure 120/70 08/27/2016 12:40 PM [employer] Pulse 77 08/27/2016 12:40 PM [employer] Temperature - - Respiratory Rate - - Height 1.829 m (6') 08/27/2016 12:40 PM [employer] Weight 72.757 kg (160 lb 6.4 oz) 08/27/2016 12:40 PM [employer] Body Mass Index 21.75 08/27/2016 12:40 PM [employer] Oxygen Saturation - - Plan of Care Health Maintenance Due Date Last Done Comments Physical (Comprehensive) 1942 Exam Pertussis Vaccine 1944 Tetanus Vaccine 1950 Shingles Vaccine 1993 Prevnar/Pneumovax (#1) 1998 Influenza Vaccine 04/29/2017 Results from Last 3 Months * PATHOLOGY REPORTS FROM OUTSIDE SCAN (09/14/2016 8:29 AM) Narrative Ordered by an unspecified provider.
--- OUTSIDE RECORDS SUMMARY | 2016-12-07 11:55 | XMS REPORT | Continuity of Care Document ---
Author Author [facility] Organization [facility] Address Unknown Phone Unavailable Allergies Active Description Code Type Severity Reaction Onset Reported/Identified Relationship to Patient Clinical Status Yes No Known Drug Allergies [id number] Drug Allergy Unknown N/ A 01/23/2008 Medications Problems Date Dx Coded Attending Type Code Diagnosis Diagnosed By 07/28/1599 HERBERT BARTH MD, Ot K04.7 PERIAPICAL ABSCESS WITHOUT SINUS 07/28/1599 HERBERT BARTH MD Ot L59.9 DISORDER OF THE SKIN, SUBCU RELATED TO R 07/28/1599 HERBERT BARTH MD Ot Z86.79 PERSONAL HISTORY OF OTHER DISEASES OF TH 01/18/2014 TYRESE PARK MD Ot 724.2 LUMBAGO 01/18/2014 TYRESE PARK MD Ot 724.4 LUMBOSACRAL NEURITIS NOS 02/06/2014 SABRA ANDRES MD Ot 250.00 DIAB GIULIA WO COMPL, TYPE II OR UNSPEC TY 02/06/2014 SABRA ANDRES MD Ot 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 MOD DEGREE 02/06/2014 SABRA ANDRES MD Ot 272.0 PURE HYPERCHOLESTEROLEM 02/06/2014 SABRA ANDRES MD Ot 276.8 HYPOPOTASSEMIA 02/06/2014 SABRA ANDRES MD Ot 285.9 ANEMIA NOS 02/06/2014 SABRA ANDRES MD Ot 287.5 THROMBOCYTOPENIA NOS 02/06/2014 SABRA ANDRES MD Ot 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, UNSPEC, W HRT FAIL 02/06/2014 SABRA ANDRES MD Ot 412 OLD MYOCARDIAL INFARCT 02/06/2014 SABRA ANDRES MD Ot 414.8 CHR ISCHEMIC HRT DIS NEC 02/06/2014 SABRA ANDRES MD Ot 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 02/06/2014 SABRA ANDRES MD Ot 530.81 ESOPHAGEAL REFLUX 02/06/2014 SABRA ANDRES MD Ot 532.40 CHR DUODEN ULCER W HEM 02/06/2014 SABRA ANDRES MD Ot 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 02/06/2014 SABRA ANDRES MD Ot 584.9 ACUTE RENAL FAILURE, UNSPECIFIED 02/06/2014 SABRA ANDRES MD Ot 585.3 CHRONIC KIDNEY DISEASE, STAGE III (MODER 02/06/2014 SABRA ANDRES MD Ot 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 02/06/2014 SABRA ANDRES MD Ot V12.54 PERSONAL HX OF TIA, CEREBRAL INFARCTION 02/06/2014 SABRA ANDRES MD Ot V45.01 CARDIAC PACEMAKER IN SITU 02/06/2014 SABRA ANDRES MD Ot 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 02/06/2014 SABRA ANDRES MD Ot V45.82 PERCUTANEOUS TRANSLUM CORON ANGIOPLASTY 02/06/2014 SABRA ANDRES MD Ot V58.63 LONG-TERM(CURRENT)USE OF ANTIPLATELET/AN 02/08/2014 NARINDER WALKER FACC, ALI FACP CCDS Ot 250.00 DIAB GIULIA WO COMPL, TYPE II OR UNSPEC TY 02/08/2014 NARINDER WALKER FACC, ALI FACP CCDS Ot 280.0 CHR BLOOD LOSS ANEMIA 02/08/2014 NARINDER WALKER FACC, ALI FACP CCDS Ot 403.90 HYPTNSV CHR KID DIS, UNSPEC, W CHR KD ST 02/08/2014 NARINDER WALKER FACC, ALI FACP CCDS Ot 414.01 CORONARY ATHEROSCLEROSIS OF [place] CORON 02/08/2014 NARINDER WALKER FACC, ALI FACP CCDS Ot 414.8 CHR ISCHEMIC HRT DIS NEC 02/08/2014 NARINDER WALKER FACC, ALI FACP CCDS Ot 427.31 ATRIAL FIBRILLATION 02/08/2014 NARINDER WALKER FACC, ALI FACP CCDS Ot 427.61 ATRIAL PREMATURE BEATS 02/08/2014 NARINDER WALKER FACC, ALI FACP CCDS Ot 427.69 PREMATURE BEATS NEC 02/08/2014 NARINDER WALKER FACC, ALI FACP CCDS Ot 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 02/08/2014 NARINDER WALKER FACC ALI FACP CCDS Ot 532.41 CHR DUODEN ULC HEM-OBSTR 02/08/2014 NARINDER WALKER FACC, ALI FACP CCDS Ot 585.2 CHRONIC KIDNEY DISEASE, STAGE II (MILD) 02/08/2014 NARINDER MD FACC, ALI FACP CCDS Ot V45.02 AUTO IMPLANTABLE CARDIAC DEFIBRILLATOR I 09/24/2014 SAMANTHA COY MD Ot 250.00 DIAB GIULIA WO COMPL, TYPE II OR UNSPEC TY 09/24/2014 SAMANTHA COY MD Ot 920 CONTUSION FACE/SCALP/NCK 09/24/2014 SAMANTHA COY MD Ot 959.09 INJURY OF FACE AND NECK 09/24/2014 SAMANTHA COY MD Ot E000.8 OTHER EXTERNAL CAUSE STATUS 09/24/2014 SAMANTHA COY MD Ot E849.0 ACCIDENT IN HOME 09/24/2014 SAMANTHA COY MD Ot E885.9 FALL FROM SLIPPING, TRIPPING, OR STUMBLI 09/24/2014 SAMANTHA COY MD Ot V58.69 OT MED,LT,CURRENT USE 07/11/2016 JOHN RIVERA DO Ot E11.9 TYPE 2 DIABETES MELLITUS WITHOUT COMPLIC 07/11/2016 JOHN RIVERA DO Ot I10 ESSENTIAL (PRIMARY) HYPERTENSION 07/11/2016 JOHN RIVERA DO Ot I25.10 ATHSCL HEART DISEASE OF [place] CORONARY 07/11/2016 JOHN RIVERA DO Ot K04.7 PERIAPICAL ABSCESS WITHOUT SINUS 07/11/2016 JOHN RIVERA DO Ot K06.9 DISORDER OF [place] AND EDENTULOUS ALVEO 07/11/2016 JOHN RIVERA DO Ot K08.9 DISORDER OF TEETH AND SUPPORTING STRUCTU 07/11/2016 JOHN RIVERA DO Ot Z79.899 OTHER SHEET METAL FORMER (CURRENT) DRUG THERAPY 07/11/2016 JOHN RIVERA DO Ot Z85.819 PRSNL HX OF MALIG NEOPLM OF [facility] SITE LI 07/11/2016 JOHN RIVERA DO Ot Z92.3 PERSONAL HISTORY OF IRRADIATION 07/11/2016 JOHN RIVERA DO Ot Z95.5 PRESENCE OF CORONARY ANGIOPLASTY IMPLANT 07/11/2016 JOHN RIVERA DO Ot Z95.810 PRESENCE OF AUTOMATIC (IMPLANTABLE) CARD 08/03/2016 HERBERT BARTH MD Ot K04.7 PERIAPICAL ABSCESS WITHOUT SINUS 08/03/2016 HERBERT BARTH MD Ot L59.9 DISORDER OF THE SKIN, SUBCU RELATED TO R 08/03/2016 HERBERT BARTH MD, Ot Z86.79 PERSONAL HISTORY OF OTHER DISEASES OF 08/06/2016 HERBERT CASTILLO MD Ot K13.79 OTHER LESIONS OF [place] 08/06/2016 HERBERT CASTILLO MD, Ot Z85.819 PRSNL HX OF MALIG NEOPLM OF [facility] SITE LI 08/09/2016 SABRA ANDRES MD, Ot I25.9 CHRONIC ISCHEMIC HEART DISEASE, UNSPECIF 08/09/2016 SABRA ANDRES MD, Ot I25.9 CHRONIC ISCHEMIC HEART DISEASE, UNSPECIF 08/11/2016 HERBERT BARTH MD, Ot K04.7 PERIAPICAL ABSCESS WITHOUT SINUS 08/11/2016 HERBERT BARTH MD, Ot L59.9 DISORDER OF THE SKIN, SUBCU RELATED TO R 08/11/2016 HERBERT BARTH MD, Ot Z86.79 PERSONAL HISTORY OF OTHER DISEASES OF 08/18/2016 JESSICA, MAHAD J MID LEVEL PROVIDER Ot C06.0 MALIGNANT NEOPLASM OF [place] 08/18/2016 JESSICA, MAHAD J MID LEVEL PROVIDER Ot C06.0 MALIGNANT NEOPLASM OF [place] 08/18/2016 JESSICA, MAHAD J MID LEVEL PROVIDER Ot I51.7 CARDIOMEGALY 08/18/2016 JESSICA, MAHAD J MID LEVEL PROVIDER Ot J90 PLEURAL EFFUSION, NOT ELSEWHERE CLASSIFI 08/19/2016 JESSICA, MAHAD J MID LEVEL PROVIDER Ot C06.0 MALIGNANT NEOPLASM OF [place] 08/19/2016 JESSICA, MAHAD J MID LEVEL PROVIDER Ot I51.7 CARDIOMEGALY 08/19/2016 JESSICA, MAHAD J MID LEVEL PROVIDER Ot J90 PLEURAL EFFUSION, NOT ELSEWHERE CLASSIFI 08/19/2016 JESSICA, MAHAD J MID LEVEL PROVIDER Ot C06.0 MALIGNANT NEOPLASM OF [place] 08/19/2016 JESSICA, MAHAD J MID LEVEL PROVIDER Ot I51.7 CARDIOMEGALY 08/19/2016 JESSICA, MAHAD J MID LEVEL PROVIDER Ot J90 PLEURAL EFFUSION, NOT ELSEWHERE CLASSIFI 08/26/2016 HERBERT BARTH MD, Ot K04.7 PERIAPICAL ABSCESS WITHOUT SINUS 08/26/2016 HERBERT BARTH MD, Ot L59.9 DISORDER OF THE SKIN, SUBCU RELATED TO R 08/26/2016 HERBERT BARTH MD, Ot Z86.79 PERSONAL HISTORY OF OTHER DISEASES OF 08/26/2016 ANNA WALKER, HERBERT Corbin Ot K13.79 OTHER LESIONS OF [place] 08/26/2016 ANNA WALKER, HERBERT Corbin Ot Z85.819 PRSNL HX OF MALIG NEOPLM OF [facility] SITE LI 08/31/2016 DMITRY WALKER, SABRA Robles Ot I25.9 CHRONIC ISCHEMIC HEART DISEASE, UNSPECIF 09/10/2016 JESSICA, MAHAD J MID LEVEL PROVIDER Ot C06.0 MALIGNANT NEOPLASM OF [place] 09/10/2016 JESSICA, MAHAD Quan MID LEVEL PROVIDER Ot I51.7 CARDIOMEGALY 09/10/2016 JESSICA MAHAD J MID LEVEL PROVIDER Ot J90 PLEURAL EFFUSION, NOT ELSEWHERE CLASSIFI 09/10/2016 JOYA ALONSO MD Ot C41.1 MALIGNANT NEOPLASM OF [place] 09/10/2016 JOYA ALONSO MD Ot E03.9 HYPOTHYROIDISM, UNSPECIFIED 09/10/2016 JOYA ALONSO MD Ot I12.9 HYPERTENSIVE CHRONIC KIDNEY DISEASE W ST 09/10/2016 JOYA ALONSO MD Ot I25.10 ATHSCL HEART DISEASE OF [place] CORONARY 09/10/2016 JOYA ALONSO MD Ot I48.91 UNSPECIFIED ATRIAL FIBRILLATION 09/10/2016 JOYA ALONSO MD Ot N18.3 CHRONIC KIDNEY DISEASE, STAGE 3 (MODERAT 09/10/2016 JOYA ALONSO MD Ot Z79.899 OTHER SKILLED NURSING (CURRENT) DRUG THERAPY 09/10/2016 JOYA ALONSO MD Ot Z95.810 PRESENCE OF AUTOMATIC (IMPLANTABLE) CARD 09/10/2016 GERSON MONTIEL MD Ot C41.1 MALIGNANT NEOPLASM OF [place] 09/10/2016 GERSON MONTIEL MD Ot Z01.818 ENCOUNTER FOR OTHER PREPROCEDURAL EXAMIN 09/10/2016 GERSON MONTIEL MD Ot C41.1 MALIGNANT NEOPLASM OF [place] 09/10/2016 GERSON MONTIEL MD Ot I10 ESSENTIAL (PRIMARY) HYPERTENSION 09/10/2016 GERSON MONTIEL MD Ot I25.10 ATHSCL HEART DISEASE OF [place] CORONARY 09/10/2016 GERSON MONTIEL MD Ot I48.91 UNSPECIFIED ATRIAL FIBRILLATION 09/10/2016 GERSON MONTIEL MD Ot Z79.899 OTHER SHEET METAL FORMER (CURRENT) DRUG THERAPY 09/15/2016 JOYA ALONSO MD Ot C41.1 MALIGNANT NEOPLASM OF [place] 09/15/2016 JOYA ALONSO MD Ot E03.9 HYPOTHYROIDISM, UNSPECIFIED 09/15/2016 JOYA ALONSO MD Ot I12.9 HYPERTENSIVE CHRONIC KIDNEY DISEASE W ST 09/15/2016 JOYA ALONSO MD Ot I25.10 ATHSCL HEART DISEASE OF [place] CORONARY 09/15/2016 JOYA ALONSO MD Ot I48.91 UNSPECIFIED ATRIAL FIBRILLATION 09/15/2016 JOYA ALONSO MD Ot N18.3 CHRONIC KIDNEY DISEASE, STAGE 3 (MODERAT 09/15/2016 JOYA ALONSO MD Ot Z79.899 OTHER SKILLED NURSING (CURRENT) DRUG THERAPY 09/15/2016 JOYA ALONSO MD Ot Z95.810 PRESENCE OF AUTOMATIC (IMPLANTABLE) CARD 09/17/2016 GERSON MONTIEL MD, Ot C41.1 MALIGNANT NEOPLASM OF [place] 09/17/2016 GERSON MONTIEL MD Ot I10 ESSENTIAL (PRIMARY) HYPERTENSION 09/17/2016 GERSON MONTIEL MD Ot I25.10 ATHSCL HEART DISEASE OF [place] CORONARY 09/17/2016 GERSON MONTIEL MD, Ot I48.91 UNSPECIFIED ATRIAL FIBRILLATION 09/17/2016 GERSON MONTIEL MD Ot Z79.899 OTHER SKILLED NURSING (CURRENT) DRUG THERAPY 09/21/2016 ANNA WALKER, HERBERT Corbin Ot K13.79 OTHER LESIONS OF [place] 09/21/2016 HERBERT CASTILLO MD Ot Z85.819 PRSNL HX OF MALIG NEOPLM OF [facility] SITE LI 09/21/2016 MAHAD LOPEZ MID LEVEL PROVIDER Ot C06.0 MALIGNANT NEOPLASM OF [place] 09/21/2016 MAHAD LOPEZ MID LEVEL PROVIDER Ot I51.7 CARDIOMEGALY 09/21/2016 MAHAD LOPEZ MID LEVEL PROVIDER Ot J90 PLEURAL EFFUSION, NOT ELSEWHERE CLASSIFI 09/21/2016 JOYA ALONSO MD Ot C41.1 MALIGNANT NEOPLASM OF [place] 09/21/2016 JOYA ALONSO MD Ot E03.9 HYPOTHYROIDISM, UNSPECIFIED 09/21/2016 JOYA ALONSO MD Ot I12.9 HYPERTENSIVE CHRONIC KIDNEY DISEASE W ST 09/21/2016 JOYA ALONSO MD Ot I25.10 ATHSCL HEART DISEASE OF [place] CORONARY 09/21/2016 JOYA ALONSO MD Ot I48.91 UNSPECIFIED ATRIAL FIBRILLATION 09/21/2016 JOYA ALONSO MD Ot N18.3 CHRONIC KIDNEY DISEASE, STAGE 3 (MODERAT 09/21/2016 JOYA ALONSO MD Ot Z79.899 OTHER SHEET METAL FORMER (CURRENT) DRUG THERAPY 09/21/2016 JOYA ALONSO MD Ot Z95.810 PRESENCE OF AUTOMATIC (IMPLANTABLE) CARD 09/21/2016 HERBERT CASTILLO MD Ot K13.79 OTHER LESIONS OF [place] 09/21/2016 HERBERT CASTILLO MD Ot Z85.819 PRSNL HX OF MALIG NEOPLM OF [facility] SITE LI 09/21/2016 DMITRY WALKER, SABRA Robles Ot I25.9 CHRONIC ISCHEMIC HEART DISEASE, UNSPECIF 09/21/2016 JESSICA, MAHAD J MID LEVEL PROVIDER Ot C06.0 MALIGNANT NEOPLASM OF [place] 09/21/2016 JESSICA, MAHAD J MID LEVEL PROVIDER Ot I51.7 CARDIOMEGALY 09/21/2016 JESSICA, MAHAD J MID LEVEL PROVIDER Ot J90 PLEURAL EFFUSION, NOT ELSEWHERE CLASSIFI 09/22/2016 JESSICA, MAHAD J MID LEVEL PROVIDER Ot C06.0 MALIGNANT NEOPLASM OF [place] 09/22/2016 JESSICA, MAHAD J MID LEVEL PROVIDER Ot I51.7 CARDIOMEGALY 09/22/2016 JESSICA, MAHAD J MID LEVEL PROVIDER Ot J90 PLEURAL EFFUSION, NOT ELSEWHERE CLASSIFI 10/06/2016 JOYA ALONSO MD Ot C76.0 MALIGNANT NEOPLASM OF HEAD, FACE AND NEC 10/06/2016 JOYA ALONSO MD Ot R51 HEADACHE 10/08/2016 JOYA ALONSO MD Ot C76.0 MALIGNANT NEOPLASM OF HEAD, FACE AND NEC 10/08/2016 JOYA ALONSO MD Ot R51 HEADACHE 10/12/2016 JOYA ALONSO MD Ot C41.1 MALIGNANT NEOPLASM OF [place] 10/12/2016 JOYA ALONSO MD Ot E03.9 HYPOTHYROIDISM, UNSPECIFIED 10/12/2016 JOYA ALONSO MD Ot I12.9 HYPERTENSIVE CHRONIC KIDNEY DISEASE W ST 10/12/2016 JOYA ALONSO MD Ot I25.10 ATHSCL HEART DISEASE OF [place] CORONARY 10/12/2016 JOYA ALONSO MD Ot I48.91 UNSPECIFIED ATRIAL FIBRILLATION 10/12/2016 JOYA ALONSO MD Ot N18.3 CHRONIC KIDNEY DISEASE, STAGE 3 (MODERAT 10/12/2016 JOYA ALONSO MD Ot Z79.899 OTHER SHEET METAL FORMER (CURRENT) DRUG THERAPY 10/12/2016 CELESTE WALKER, JOYA Retana Ot Z95.810 PRESENCE OF AUTOMATIC (IMPLANTABLE) CARD 10/15/2016 ANNA WALKER, HERBERT Corbin Ot K13.79 OTHER LESIONS OF [place] 10/15/2016 HERBERT CASTILLO MD Ot Z85.819 PRSNL HX OF MALIG NEOPLM OF [facility] SITE LI 10/15/2016 DMITRY WALKER, SABRA Robles Ot I25.9 CHRONIC ISCHEMIC HEART DISEASE, UNSPECIF 10/15/2016 JESSICA, MAHAD Quan MID LEVEL PROVIDER Ot C06.0 MALIGNANT NEOPLASM OF [place] 10/15/2016 JESSICA, MAHAD Quan MID LEVEL PROVIDER Ot I51.7 CARDIOMEGALY 10/15/2016 JESSICA, MAHAD Quan MID LEVEL PROVIDER Ot J90 PLEURAL EFFUSION, NOT ELSEWHERE CLASSIFI 10/15/2016 CELESTE WALKER, JOYA Retana Ot C41.1 MALIGNANT NEOPLASM OF [place] 10/15/2016 JOYA ALONSO MD Ot E03.9 HYPOTHYROIDISM, UNSPECIFIED 10/15/2016 JOYA ALONSO MD Ot I12.9 HYPERTENSIVE CHRONIC KIDNEY DISEASE W ST 10/15/2016 JOYA ALONSO MD Ot I25.10 ATHSCL HEART DISEASE OF [place] CORONARY 10/15/2016 CELESTE WALKER, JOYA Retana Ot I48.91 UNSPECIFIED ATRIAL FIBRILLATION 10/15/2016 JOYA ALONSO MD Ot N18.3 CHRONIC KIDNEY DISEASE, STAGE 3 (MODERAT 10/15/2016 JOYA ALONSO MD Ot Z79.899 OTHER SHEET METAL FORMER (CURRENT) DRUG THERAPY 10/15/2016 JOYA ALONSO MD Ot Z95.810 PRESENCE OF AUTOMATIC (IMPLANTABLE) CARD 10/22/2016 SEAN CONNORS MD Ot 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, UNSPECIFIED 10/22/2016 SEAN CONNORS MD Ot I48.2 CHRONIC ATRIAL FIBRILLATION 10/22/2016 SEAN CONNORS MD Ot I95.1 ORTHOSTATIC HYPOTENSION 10/22/2016 SEAN CONNORS MD Ot L03.211 CELLULITIS OF FACE 10/22/2016 SEAN CONNORS MD Ot R29.6 REPEATED FALLS 10/22/2016 SEAN CONNORS MD Ot S40.811A ABRASION OF RIGHT UPPER ARM, INITIAL ENC 10/22/2016 SEAN CONNORS MD Ot Y92.[address] IN [facility] NON-INSTITUT ( PRIVATE 10/22/2016 SEAN CONNORS MD Ot Y99.8 OTHER EXTERNAL CAUSE STATUS 10/22/2016 SEAN CONNORS MD Ot Z79.899 OTHER SHEET METAL FORMER (CURRENT) DRUG THERAPY 10/22/2016 SEAN CONNORS MD Ot Z95.0 PRESENCE OF CARDIAC PACEMAKER 10/22/2016 SEAN CONNORS MD Ot Z95.5 PRESENCE OF CORONARY ANGIOPLASTY IMPLANT 10/25/2016 SEAN CONNORS MD Ot 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, UNSPECIFIED 10/25/2016 SEAN CONNORS MD Ot I48.2 CHRONIC ATRIAL FIBRILLATION 10/25/2016 SEAN CONNORS MD Ot I95.1 ORTHOSTATIC HYPOTENSION 10/25/2016 SEAN CONNORS MD Ot L03.211 CELLULITIS OF FACE 10/25/2016 SEAN CONNORS MD Ot R29.6 REPEATED FALLS 10/25/2016 SEAN CONNORS MD Ot S40.811A ABRASION OF RIGHT UPPER ARM, INITIAL ENC 10/25/2016 SEAN CONNORS MD Ot Y92.[address] [facility] [address] IN [facility] NON[facility] ( PRIVATE 10/25/2016 SEAN CONNORS MD Ot Y99.8 OTHER EXTERNAL CAUSE STATUS 10/25/2016 SEAN CONNORS MD Ot Z79.899 OTHER SKILLED NURSING (CURRENT) DRUG THERAPY 10/25/2016 SEAN CONNORS MD Ot Z95.0 PRESENCE OF CARDIAC PACEMAKER 10/25/2016 SEAN CONNORS MD Ot Z95.5 PRESENCE OF CORONARY ANGIOPLASTY IMPLANT 10/26/2016 JOYA ALONSO MD Ot C76.0 MALIGNANT NEOPLASM OF HEAD, FACE AND NEC 10/26/2016 JOYA ALONSO MD Ot R51 HEADACHE 10/29/2016 SEAN CONNORS MD Ot 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, UNSPECIFIED 10/29/2016 SENA CONNORS MD Ot I48.2 CHRONIC ATRIAL FIBRILLATION 10/29/2016 SEAN CONNORS MD, Ot I95.1 ORTHOSTATIC HYPOTENSION 10/29/2016 SEAN CONNORS MD Ot L03.211 CELLULITIS OF FACE 10/29/2016 SEAN CONNORS MD, Ot R29.6 REPEATED FALLS 10/29/2016 SEAN CONNORS MD, Ot S40.811A ABRASION OF RIGHT UPPER ARM, INITIAL ENC 10/29/2016 SEAN CONNORS MD, Ot Y92.[address] [facility] [address] IN [facility] NON[facility] ( PRIVATE 10/29/2016 SEAN CONNORS MD, Ot Y99.8 OTHER EXTERNAL CAUSE STATUS 10/29/2016 SEAN CONNORS MD, Ot Z79.899 OTHER SHEET METAL FORMER (CURRENT) DRUG THERAPY 10/29/2016 SEAN CONNORS MD, Ot Z95.0 PRESENCE OF CARDIAC PACEMAKER 10/29/2016 SEAN CONNORS MD, Ot Z95.5 PRESENCE OF CORONARY ANGIOPLASTY IMPLANT 11/04/2016 JOYA ALONSO MD, Ot C41.1 MALIGNANT NEOPLASM OF [place] 11/04/2016 JOYA ALONSO MD, Ot D64.9 ANEMIA, UNSPECIFIED 11/04/2016 JOYA ALONSO MD, Ot E03.9 HYPOTHYROIDISM, UNSPECIFIED 11/04/2016 JOYA ALONSO MD Ot E86.0 DEHYDRATION 11/04/2016 JOYA ALONSO MD Ot 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) 11/04/2016 JOYA ALONSO MD Ot I10 ESSENTIAL (PRIMARY) HYPERTENSION 11/04/2016 JOYA ALONSO MD, Ot I25.10 ATHSCL HEART DISEASE OF [place] CORONARY 11/04/2016 JOYA ALONSO MD Ot R13.10 DYSPHAGIA, UNSPECIFIED 11/04/2016 JOYA ALONSO MD Ot R63.4 ABNORMAL WEIGHT LOSS 11/04/2016 JOYA ALONSO MD Ot Z87.11 PERSONAL HISTORY OF PEPTIC ULCER DISEASE 11/04/2016 JOYA ALONSO MD Ot Z92.3 PERSONAL HISTORY OF IRRADIATION 11/04/2016 JOYA ALONSO MD Ot Z95.0 PRESENCE OF CARDIAC PACEMAKER 11/10/2016 JOYA ALONSO MD Ot C41.1 MALIGNANT NEOPLASM OF [place] 11/10/2016 JOYA ALONSO MD Ot E03.9 HYPOTHYROIDISM, UNSPECIFIED 11/10/2016 JOYA ALONSO MD Ot I12.9 HYPERTENSIVE CHRONIC KIDNEY DISEASE W ST 11/10/2016 JOYA ALONSO MD, Ot I25.10 ATHSCL HEART DISEASE OF [place] CORONARY 11/10/2016 JOYA ALONSO MD Ot I48.91 UNSPECIFIED ATRIAL FIBRILLATION 11/10/2016 JOYA ALONSO MD Ot N18.3 CHRONIC KIDNEY DISEASE, STAGE 3 (MODERAT 11/10/2016 JOYA ALONSO MD Ot Z79.899 OTHER SKILLED NURSING (CURRENT) DRUG THERAPY 11/10/2016 JOYA ALONSO MD Ot Z95.810 PRESENCE OF AUTOMATIC (IMPLANTABLE) CARD 11/12/2016 JESSICAMAHAD NEW Ot C06.0 MALIGNANT NEOPLASM OF [place] 11/12/2016 MAHAD LOPEZ Ot I51.7 CARDIOMEGALY 11/12/2016 MAHAD LOPEZ Ot J90 PLEURAL EFFUSION, NOT ELSEWHERE CLASSIFI 11/20/2016 SEAN CONNORS MD, Ot C76.0 MALIGNANT NEOPLASM OF HEAD, FACE AND NEC 11/20/2016 SEAN CONNORS MD, Ot E11.9 TYPE 2 DIABETES MELLITUS WITHOUT COMPLIC 11/20/2016 SEAN CONNORS MD Ot I10 ESSENTIAL (PRIMARY) HYPERTENSION 11/20/2016 SEAN CONNORS MD Ot M19.042 PRIMARY OSTEOARTHRITIS, LEFT HAND 11/20/2016 SEAN CONNORS MD Ot M25.542 PAIN IN JOINTS OF LEFT HAND 11/20/2016 SEAN CONNORS MD Ot R41.0 DISORIENTATION, UNSPECIFIED 11/20/2016 SEAN CONNORS MD Ot Z79.899 OTHER SHEET METAL FORMER (CURRENT) DRUG THERAPY 11/20/2016 SEAN CONNORS MD Ot Z95.0 PRESENCE OF CARDIAC PACEMAKER 11/20/2016 SEAN CONNORS MD Ot Z95.5 PRESENCE OF CORONARY ANGIOPLASTY IMPLANT 11/22/2016 SEAN CONNORS MD Ot C76.0 MALIGNANT NEOPLASM OF HEAD, FACE AND NEC 11/22/2016 SEAN CONNORS MD Ot E11.9 TYPE 2 DIABETES MELLITUS WITHOUT COMPLIC 11/22/2016 BRUEGGEMANN MD, SEAN T Ot I10 ESSENTIAL (PRIMARY) HYPERTENSION 11/22/2016 SEAN CONNORS MD Ot M19.042 PRIMARY OSTEOARTHRITIS, LEFT HAND 11/22/2016 SEAN CONNORS MD, Ot M25.542 PAIN IN JOINTS OF LEFT HAND 11/22/2016 SEAN CONNORS MD, Ot R41.0 DISORIENTATION, UNSPECIFIED 11/22/2016 SEAN CONNORS MD, Ot Z79.899 OTHER SHEET METAL FORMER (CURRENT) DRUG THERAPY 11/22/2016 SEAN CONNORS MD Ot Z95.0 PRESENCE OF CARDIAC PACEMAKER 11/22/2016 SEAN CONNORS MD Ot Z95.5 PRESENCE OF CORONARY ANGIOPLASTY IMPLANT 11/30/2016 JOYA ALONSO MD, Ot C76.0 MALIGNANT NEOPLASM OF HEAD, FACE AND NEC 12/02/2016 JOYA ALONSO MD, Ot C41.1 MALIGNANT NEOPLASM OF [place] 12/02/2016 JOYA ALONSO MD Ot E03.9 HYPOTHYROIDISM, UNSPECIFIED 12/02/2016 JOYA ALONSO MD, Ot I12.9 HYPERTENSIVE CHRONIC KIDNEY DISEASE W ST 12/02/2016 JOYA ALONSO MD Ot I25.10 ATHSCL HEART DISEASE OF [place] CORONARY 12/02/2016 JOYA ALONSO MD, Ot I48.91 UNSPECIFIED ATRIAL FIBRILLATION 12/02/2016 JOYA ALONSO MD, Ot N18.3 CHRONIC KIDNEY DISEASE, STAGE 3 (MODERAT 12/02/2016 JOYA ALONSO MD Ot Z51.11 ENCOUNTER FOR ANTINEOPLASTIC CHEMOTHERAP 12/02/2016 JOYA ALONSO MD, Ot Z79.899 OTHER SHEET METAL FORMER (CURRENT) DRUG THERAPY 12/02/2016 JOYA ALONSO MD Ot Z95.810 PRESENCE OF AUTOMATIC (IMPLANTABLE) CARD 12/03/2016 JOYA ALONSO MD, Ot C41.1 MALIGNANT NEOPLASM OF [place] 12/03/2016 JOYA ALONSO MD, Ot E03.9 HYPOTHYROIDISM, UNSPECIFIED 12/03/2016 JOYA ALONSO MD, Ot I12.9 HYPERTENSIVE CHRONIC KIDNEY DISEASE W ST 12/03/2016 JOYA ALONSO MD Ot I25.10 ATHSCL HEART DISEASE OF [place] CORONARY 12/03/2016 JOYA ALOSNO MD Ot I48.91 UNSPECIFIED ATRIAL FIBRILLATION 12/03/2016 JOYA ALONSO MD, Ot N18.3 CHRONIC KIDNEY DISEASE, STAGE 3 (MODERAT 12/03/2016 JOYA ALONSO MD, Ot Z51.11 ENCOUNTER FOR ANTINEOPLASTIC CHEMOTHERAP 12/03/2016 JOYA ALONSO MD, Ot Z79.899 OTHER SKILLED NURSING (CURRENT) DRUG THERAPY 12/03/2016 JOYA ALONSO MD, Ot Z95.810 PRESENCE OF AUTOMATIC (IMPLANTABLE) CARD 12/05/2016 JOYA ALONSO MD, Ot C76.0 MALIGNANT NEOPLASM OF HEAD, FACE AND NEC Procedures Code Description Performed By Performed On 45.13 OTHER ENDOSCOPY OF SM INTEST 02/01/2014 Results Test Result Range [id number] - 08/03/16 15:55 Serum or plasma urea nitrogen measurement (mass/volume) 18 mg/dL 7-18 Serum or plasma creatinine measurement (mass/volume) 1.19 mg /dL 0.60-1.30 Serum or plasma urea nitrogen/creatinine mass ratio 15 NRG Serum or plasma creatinine measurement with calculation of estimated glomerular filtration rate 58 NRG Digoxin - 09/10/16 08:09 Digoxin 0.61 ng/mL 0.80-2.00 Methicillin resistant Staphylococcus aureus (MRSA) screening culture - 08:15 Methicillin resistant Staphylococcus aureus (MRSA) screening culture NEG NRG Complete blood count (CBC) with automated white blood cell (WBC) differential - 10/22/16 12:35 Blood leukocytes automated count (number/volume) 7.0 10*3/ uL 4.3-11.0 Blood erythrocytes automated count (number/volume) 2.92 10*6 /uL 4.35-5.85 Venous blood hemoglobin measurement (mass/volume) 9.6 g/dL 13.3-17.7 Blood hematocrit (volume fraction) 29 % 40-54 Automated erythrocyte mean corpuscular volume 99 [foz_us] 80-99 Automated erythrocyte mean corpuscular hemoglobin (mass per erythrocyte) 33 pg 25-34 Automated erythrocyte mean corpuscular hemoglobin concentration measurement ( mass/volume) 33 g/dL 32-36 Automated erythrocyte distribution width ratio 17.9 % 10.0-14.5 Automated blood platelet count (count/volume) 143 10*3/uL 130-400 Automated blood platelet mean volume measurement 8.7 [foz_us ] 7.4-10.4 Automated blood neutrophils/100 leukocytes 81 % 42-75 Automated blood lymphocytes/100 leukocytes 8 % 12-44 Blood monocytes/100 leukocytes 9 % 0-12 Automated blood eosinophils/100 leukocytes 1 % 0-10 Automated blood basophils/100 leukocytes 0 % 0-10 Blood neutrophils automated count (number/volume) 5.7 10*3 1.8-7.8 Blood lymphocytes automated count (number/volume) 0.6 10*3 1.0-4.0 Blood monocytes automated count (number/volume) 0.6 10*3 0.0-1.0 Automated eosinophil count 0.1 10*3/uL 0.0-0.3 Automated blood basophil count (count/volume) 0.0 10*3/uL 0.0-0.1 PT panel in platelet poor plasma by coagulation assay - 10/22/16 12:35 Prothrombin time (PT) in platelet poor plasma by coagulation assay 14.0 s 12.2-14.7 INR in platelet poor plasma or blood by coagulation assay 1.1 0.8-1.4 Activated partial thromboplastin time (aPTT) in platelet poor plasma bycoagulation assay - 10/22/16 12:35 Activated partial thromboplastin time (aPTT) in platelet poor plasma bycoagulation assay 31 s 24-35 Blood lactic acid measurement (moles/volume) - 10/22/16 12:35 Blood lactic acid measurement (moles/volume) 0.7 mmol/L 0.5-2.0 Comprehensive metabolic panel - 10/22/16 12:35 Serum or plasma sodium measurement (moles/volume) 136 mmol/ L 135-145 Serum or plasma potassium measurement (moles/volume) 4.5 mmol/L 3.6-5.0 Serum or plasma chloride measurement (moles/volume) 101 mmol /L 98-107 Carbon dioxide 27 mmol/L 21-32 Serum or plasma anion gap determination (moles/volume) 8 mmol/L 5-14 Serum or plasma urea nitrogen measurement (mass/volume) 27 mg/dL 7-18 Serum or plasma creatinine measurement (mass/volume) 1.01 mg /dL 0.60-1.30 Serum or plasma urea nitrogen/creatinine mass ratio 27 NRG Serum or plasma creatinine measurement with calculation of estimated glomerular filtration rate > NRG Serum or plasma glucose measurement (mass/volume) 100 mg/dL 70-105 Serum or plasma calcium measurement (mass/volume) 8.7 mg/dL 8.5-10.1 Serum or plasma total bilirubin measurement (mass/volume) 1.0 mg/dL 0.1-1.0 Serum or plasma alkaline phosphatase measurement (enzymatic activity/volume) 41 U/L 40-136 Serum or plasma aspartate aminotransferase measurement (enzymatic activity/ volume) 12 U/L 5-34 Serum or plasma alanine aminotransferase measurement (enzymatic activity/volume ) 8 U/L 0-55 Serum or plasma protein measurement (mass/volume) 6.1 g/dL 6.4-8.2 Serum or plasma albumin measurement (mass/volume) 3.1 g/dL 3.2-4.5 Bacterial blood culture - 10/22/16 12:35 Bacterial blood culture NG NRG Bacterial blood culture - 10/22/16 12:50 Bacterial blood culture NG NRG Complete urinalysis with reflex to culture - 10/22/16 13:25 Urine color determination YELLOW NRG Urine clarity determination CLEAR NRG Urine pH measurement by test strip 7 5- 9 Specific gravity of urine by test strip 1.010 1.016-1.022 Urine protein assay by test strip, semi-quantitative 2+ NEGATIVE Urine glucose detection by automated test strip NEGATIVE NEGATIVE Erythrocytes detection in urine sediment by light microscopy NEGATIVE NEGATIVE Urine ketones detection by automated test strip NEGATIVE NEGATIVE Urine nitrite detection by test strip NEGATIVE NEGATIVE Urine total bilirubin detection by test strip NEGATIVE NEGATIVE Urine urobilinogen measurement by automated test strip (mass/volume) 4 mg/dL NORMAL Urine leukocyte esterase detection by dipstick NEGATIVE NEGATIVE Automated urine sediment erythrocyte count by microscopy (number/high power field) NONE NRG Automated urine sediment leukocyte count by microscopy (number/high power field ) RARE NRG Bacteria detection in urine sediment by light microscopy NEGATIVE NRG Squamous epithelial cells detection in urine sediment by light microscopy 0-2 NRG Crystals detection in urine sediment by light microscopy NONE NRG Casts detection in urine sediment by light microscopy NONE NRG Mucus detection in urine sediment by light microscopy NEGATIVE NRG Complete urinalysis with reflex to culture NO NRG Complete blood count (CBC) with automated white blood cell (WBC) differential - 10/29/16 16:05 Blood leukocytes automated count (number/volume) 5.1 10*3/ uL 4.3-11.0 Blood erythrocytes automated count (number/volume) 2.77 10*6 /uL 4.35-5.85 Venous blood hemoglobin measurement (mass/volume) 9.1 g/dL 13.3-17.7 Blood hematocrit (volume fraction) 28 % 40-54 Automated erythrocyte mean corpuscular volume 100 [foz_us] 80-99 Automated erythrocyte mean corpuscular hemoglobin (mass per erythrocyte) 33 pg 25-34 Automated erythrocyte mean corpuscular hemoglobin concentration measurement ( mass/volume) 33 g/dL 32-36 Automated erythrocyte distribution width ratio 18.0 % 10.0-14.5 Automated blood platelet count (count/volume) 168 10*3/uL 130-400 Automated blood platelet mean volume measurement 8.7 [foz_us ] 7.4-10.4 Automated blood neutrophils/100 leukocytes 76 % 42-75 Automated blood lymphocytes/100 leukocytes 13 % 12-44 Blood monocytes/100 leukocytes 8 % 0-12 Automated blood eosinophils/100 leukocytes 2 % 0-10 Automated blood basophils/100 leukocytes 0 % 0-10 Blood neutrophils automated count (number/volume) 3.9 10*3 1.8-7.8 Blood lymphocytes automated count (number/volume) 0.7 10*3 1.0-4.0 Blood monocytes automated count (number/volume) 0.4 10*3 0.0-1.0 Automated eosinophil count 0.1 10*3/uL 0.0-0.3 Automated blood basophil count (count/volume) 0.0 10*3/uL 0.0-0.1 Comprehensive metabolic panel - 10/29/16 16:05 Serum or plasma sodium measurement (moles/volume) 137 mmol/ L 135-145 Serum or plasma potassium measurement (moles/volume) 4.6 mmol/L 3.6-5.0 Serum or plasma chloride measurement (moles/volume) 103 mmol /L 98-107 Carbon dioxide 26 mmol/L 21-32 Serum or plasma anion gap determination (moles/volume) 8 mmol/L 5-14 Serum or plasma urea nitrogen measurement (mass/volume) 22 mg/dL 7-18 Serum or plasma creatinine measurement (mass/volume) 0.89 mg /dL 0.60-1.30 Serum or plasma urea nitrogen/creatinine mass ratio 25 NRG Serum or plasma creatinine measurement with calculation of estimated glomerular filtration rate > NRG Serum or plasma glucose measurement (mass/volume) 91 mg/dL 70-105 Serum or plasma calcium measurement (mass/volume) 8.6 mg/dL 8.5-10.1 Serum or plasma total bilirubin measurement (mass/volume) 0.8 mg/dL 0.1-1.0 Serum or plasma alkaline phosphatase measurement (enzymatic activity/volume) 39 U/L 40-136 Serum or plasma aspartate aminotransferase measurement (enzymatic activity/ volume) 10 U/L 5-34 Serum or plasma alanine aminotransferase measurement (enzymatic activity/volume ) 8 U/L 0-55 Serum or plasma protein measurement (mass/volume) 6.0 g/dL 6.4-8.2 Serum or plasma albumin measurement (mass/volume) 3.2 g/dL 3.2-4.5 Complete urinalysis with reflex to culture - 10/29/16 20:00 Urine color determination YELLOW NRG Urine clarity determination CLEAR NRG Urine pH measurement by test strip 6.5 5 -9 Specific gravity of urine by test strip 1.015 1.016-1.022 Urine protein assay by test strip, semi-quantitative NEGATIVE NEGATIVE Urine glucose detection by automated test strip NEGATIVE NEGATIVE Erythrocytes detection in urine sediment by light microscopy NEGATIVE NEGATIVE Urine ketones detection by automated test strip NEGATIVE NEGATIVE Urine nitrite detection by test strip NEGATIVE NEGATIVE Urine total bilirubin detection by test strip NEGATIVE NEGATIVE Urine urobilinogen measurement by automated test strip (mass/volume) 1 mg/dL NORMAL Urine leukocyte esterase detection by dipstick NEGATIVE NEGATIVE Automated urine sediment erythrocyte count by microscopy (number/high power field) NONE NRG Automated urine sediment leukocyte count by microscopy (number/high power field ) RARE NRG Bacteria detection in urine sediment by light microscopy NEGATIVE NRG Crystals detection in urine sediment by light microscopy NONE NRG Casts detection in urine sediment by light microscopy NONE NRG Mucus detection in urine sediment by light microscopy NEGATIVE NRG Complete urinalysis with reflex to culture NO NRG Automated blood complete blood count (hemogram) panel - 11/02/16 09:10 Blood leukocytes automated count (number/volume) 5.0 10*3/ uL 4.3-11.0 Blood erythrocytes automated count (number/volume) 2.62 10*6 /uL 4.35-5.85 Venous blood hemoglobin measurement (mass/volume) 8.5 g/dL 13.3-17.7 Blood hematocrit (volume fraction) 26 % 40-54 Automated erythrocyte mean corpuscular volume 100 [foz_us] 80-99 Automated erythrocyte mean corpuscular hemoglobin (mass per erythrocyte) 32 pg 25-34 Automated erythrocyte mean corpuscular hemoglobin concentration measurement ( mass/volume) 32 g/dL 32-36 Automated erythrocyte distribution width ratio 19.0 % 10.0-14.5 Automated blood platelet count (count/volume) 181 10*3/uL 130-400 Automated blood platelet mean volume measurement 8.6 [foz_us ] 7.4-10.4 Whole blood basic metabolic panel - 11/02/16 09:10 Serum or plasma sodium measurement (moles/volume) 133 mmol/ L 135-145 Serum or plasma potassium measurement (moles/volume) 4.9 mmol/L 3.6-5.0 Serum or plasma chloride measurement (moles/volume) 97 mmol/ L 98-107 Carbon dioxide 28 mmol/L 21-32 Serum or plasma anion gap determination (moles/volume) 8 mmol/L 5-14 Serum or plasma urea nitrogen measurement (mass/volume) 44 mg/dL 7-18 Serum or plasma creatinine measurement (mass/volume) 0.76 mg /dL 0.60-1.30 Serum or plasma urea nitrogen/creatinine mass ratio 58 NRG Serum or plasma creatinine measurement with calculation of estimated glomerular filtration rate > NRG Serum or plasma glucose measurement (mass/volume) 117 mg/dL 70-105 Serum or plasma calcium measurement (mass/volume) 8.9 mg/dL 8.5-10.1 Magnesium - 11/02/16 09:10 Magnesium 1.9 mg/dL 1.8-2.4 Complete blood count (CBC) with automated white blood cell (WBC) differential - 11/03/16 04:45 Blood leukocytes automated count (number/volume) 3.9 10*3/ uL 4.3-11.0 Blood erythrocytes automated count (number/volume) 2.41 10*6 /uL 4.35-5.85 Venous blood hemoglobin measurement (mass/volume) 7.9 g/dL 13.3-17.7 Blood hematocrit (volume fraction) 24 % 40-54 Automated erythrocyte mean corpuscular volume 100 [foz_us] 80-99 Automated erythrocyte mean corpuscular hemoglobin (mass per erythrocyte) 33 pg 25-34 Automated erythrocyte mean corpuscular hemoglobin concentration measurement ( mass/volume) 33 g/dL 32-36 Automated erythrocyte distribution width ratio 19.0 % 10.0-14.5 Automated blood platelet count (count/volume) 171 10*3/uL 130-400 Automated blood platelet mean volume measurement 8.9 [foz_us ] 7.4-10.4 Automated blood neutrophils/100 leukocytes 72 % 42-75 Automated blood lymphocytes/100 leukocytes 14 % 12-44 Blood monocytes/100 leukocytes 12 % 0-12 Automated blood eosinophils/100 leukocytes 2 % 0-10 Automated blood basophils/100 leukocytes 0 % 0-10 Blood neutrophils automated count (number/volume) 2.8 10*3 1.8-7.8 Blood lymphocytes automated count (number/volume) 0.6 10*3 1.0-4.0 Blood monocytes automated count (number/volume) 0.5 10*3 0.0-1.0 Automated eosinophil count 0.1 10*3/uL 0.0-0.3 Automated blood basophil count (count/volume) 0.0 10*3/uL 0.0-0.1 Whole blood basic metabolic panel - 11/03/16 04:45 Serum or plasma sodium measurement (moles/volume) 132 mmol/ L 135-145 Serum or plasma potassium measurement (moles/volume) 4.5 mmol/L 3.6-5.0 Serum or plasma chloride measurement (moles/volume) 99 mmol/ L 98-107 Carbon dioxide 27 mmol/L 21-32 Serum or plasma anion gap determination (moles/volume) 6 mmol/L 5-14 Serum or plasma urea nitrogen measurement (mass/volume) 41 mg/dL 7-18 Serum or plasma creatinine measurement (mass/volume) 0.74 mg /dL 0.60-1.30 Serum or plasma urea nitrogen/creatinine mass ratio 55 NRG Serum or plasma creatinine measurement with calculation of estimated glomerular filtration rate > NRG Serum or plasma glucose measurement (mass/volume) 124 mg/dL 70-105 Serum or plasma calcium measurement (mass/volume) 8.5 mg/dL 8.5-10.1 RED CELLS LEUKO REDUCED AS1 - 11/03/16 09:30 RED CELLS LEUKO REDUCED AS1 TRANSFUSED [id number] Blood type T Indirect antibody screen panel - 11/03/16 09:30 ABO+Rh group AN NRG Transfusion band number [id number] NRG Blood group antibody screen NEGATIVE NRG Complete blood count (CBC) with automated white blood cell (WBC) differential - 11/04/16 04:00 Blood leukocytes automated count (number/volume) 4.7 10*3/ uL 4.3-11.0 Blood erythrocytes automated count (number/volume) 3.12 10*6 /uL 4.35-5.85 Venous blood hemoglobin measurement (mass/volume) 9.9 g/dL 13.3-17.7 Blood hematocrit (volume fraction) 30 % 40-54 Automated erythrocyte mean corpuscular volume 97 [foz_us] 80-99 Automated erythrocyte mean corpuscular hemoglobin (mass per erythrocyte) 32 pg 25-34 Automated erythrocyte mean corpuscular hemoglobin concentration measurement ( mass/volume) 33 g/dL 32-36 Automated erythrocyte distribution width ratio 19.6 % 10.0-14.5 Automated blood platelet count (count/volume) 182 10*3/uL 130-400 Automated blood platelet mean volume measurement 8.9 [foz_us ] 7.4-10.4 Automated blood neutrophils/100 leukocytes 75 % 42-75 Automated blood lymphocytes/100 leukocytes 8 % 12-44 Blood monocytes/100 leukocytes 15 % 0-12 Automated blood eosinophils/100 leukocytes 2 % 0-10 Automated blood basophils/100 leukocytes 0 % 0-10 Blood neutrophils automated count (number/volume) 3.5 10*3 1.8-7.8 Blood lymphocytes automated count (number/volume) 0.4 10*3 1.0-4.0 Blood monocytes automated count (number/volume) 0.7 10*3 0.0-1.0 Automated eosinophil count 0.1 10*3/uL 0.0-0.3 Automated blood basophil count (count/volume) 0.0 10*3/uL 0.0-0.1 Whole blood basic metabolic panel - 11/04/16 04:00 Serum or plasma sodium measurement (moles/volume) 133 mmol/ L 135-145 Serum or plasma potassium measurement (moles/volume) 4.4 mmol/L 3.6-5.0 Serum or plasma chloride measurement (moles/volume) 98 mmol/ L 98-107 Carbon dioxide 26 mmol/L 21-32 Serum or plasma anion gap determination (moles/volume) 9 mmol/L 5-14 Serum or plasma urea nitrogen measurement (mass/volume) 41 mg/dL 7-18 Serum or plasma creatinine measurement (mass/volume) 0.76 mg /dL 0.60-1.30 Serum or plasma urea nitrogen/creatinine mass ratio 54 NRG Serum or plasma creatinine measurement with calculation of estimated glomerular filtration rate > NRG Serum or plasma glucose measurement (mass/volume) 111 mg/dL 70-105 Serum or plasma calcium measurement (mass/volume) 8.6 mg/dL 8.5-10.1 Complete blood count (CBC) with automated white blood cell (WBC) differential - 11/20/16 19:30 Blood leukocytes automated count (number/volume) 8.8 10*3/ uL 4.3-11.0 Blood erythrocytes automated count (number/volume) 3.21 10*6 /uL 4.35-5.85 Venous blood hemoglobin measurement (mass/volume) 10.7 g/dL 13.3-17.7 Blood hematocrit (volume fraction) 33 % 40-54 Automated erythrocyte mean corpuscular volume 103 [foz_us] 80-99 Automated erythrocyte mean corpuscular hemoglobin (mass per erythrocyte) 33 pg 25-34 Automated erythrocyte mean corpuscular hemoglobin concentration measurement ( mass/volume) 32 g/dL 32-36 Automated erythrocyte distribution width ratio 19.7 % 10.0-14.5 Automated blood platelet count (count/volume) 156 10*3/uL 130-400 Automated blood platelet mean volume measurement 9.0 [foz_us ] 7.4-10.4 Automated blood neutrophils/100 leukocytes 81 % 42-75 Automated blood lymphocytes/100 leukocytes 7 % 12-44 Blood monocytes/100 leukocytes 10 % 0-12 Automated blood eosinophils/100 leukocytes 2 % 0-10 Automated blood basophils/100 leukocytes 0 % 0-10 Blood neutrophils automated count (number/volume) 7.1 10*3 1.8-7.8 Blood lymphocytes automated count (number/volume) 0.6 10*3 1.0-4.0 Blood monocytes automated count (number/volume) 0.9 10*3 0.0-1.0 Automated eosinophil count 0.1 10*3/uL 0.0-0.3 Automated blood basophil count (count/volume) 0.0 10*3/uL 0.0-0.1 Comprehensive metabolic panel - 11/20/16 19:30 Serum or plasma sodium measurement (moles/volume) 140 mmol/ L 135-145 Serum or plasma potassium measurement (moles/volume) 4.4 mmol/L 3.6-5.0 Serum or plasma chloride measurement (moles/volume) 102 mmol /L 98-107 Carbon dioxide 28 mmol/L 21-32 Serum or plasma anion gap determination (moles/volume) 10 mmol/L 5-14 Serum or plasma urea nitrogen measurement (mass/volume) 27 mg/dL 7-18 Serum or plasma creatinine measurement (mass/volume) 1.02 mg /dL 0.60-1.30 Serum or plasma urea nitrogen/creatinine mass ratio 26 NRG Serum or plasma creatinine measurement with calculation of estimated glomerular filtration rate > NRG Serum or plasma glucose measurement (mass/volume) 96 mg/dL 70-105 Serum or plasma calcium measurement (mass/volume) 8.6 mg/dL 8.5-10.1 Serum or plasma total bilirubin measurement (mass/volume) 1.0 mg/dL 0.1-1.0 Serum or plasma alkaline phosphatase measurement (enzymatic activity/volume) 45 U/L 40-136 Serum or plasma aspartate aminotransferase measurement (enzymatic activity/ volume) 10 U/L 5-34 Serum or plasma alanine aminotransferase measurement (enzymatic activity/volume ) < U/L 0-55 Serum or plasma protein measurement (mass/volume) 5.6 g/dL 6.4-8.2 Serum or plasma albumin measurement (mass/volume) 3.0 g/dL 3.2-4.5 THYROID STIMULATING HORMONE - 11/20/16 19:30 THYROID STIMULATING HORMONE 2.19 u[iU]/mL 0.35-4.94 Serum or plasma thyroxine (T4) free measurement (mass/volume) - 11/20/16 19:30 Serum or plasma thyroxine (T4) free measurement (mass/volume) 1.21 ng/dL 0.70-1.48 Serum or plasma C reactive protein measurement (mass/volume) - 11/20/16 19:30 Serum or plasma C reactive protein measurement (mass/volume) 5.53 mg/dL 0.00-0.50 Digoxin - 11/20/16 19:30 Digoxin 1.38 ng/mL 0.80-2.00 Complete urinalysis with reflex to culture - 11/20/16 20:15 Urine color determination YELLOW NRG Urine clarity determination SLIGHTLY CLOUDY NRG Urine pH measurement by test strip 6 5- 9 Specific gravity of urine by test strip 1.015 1.016-1.022 Urine protein assay by test strip, semi-quantitative 1+ NEGATIVE Urine glucose detection by automated test strip NEGATIVE NEGATIVE Erythrocytes detection in urine sediment by light microscopy NEGATIVE NEGATIVE Urine ketones detection by automated test strip NEGATIVE NEGATIVE Urine nitrite detection by test strip NEGATIVE NEGATIVE Urine total bilirubin detection by test strip NEGATIVE NEGATIVE Urine urobilinogen measurement by automated test strip (mass/volume) 1 mg/dL NORMAL Urine leukocyte esterase detection by dipstick 1+ NEGATIVE Automated urine sediment erythrocyte count by microscopy (number/high power field) NONE NRG Automated urine sediment leukocyte count by microscopy (number/high power field ) [HPF] NRG Bacteria detection in urine sediment by light microscopy NEGATIVE NRG Squamous epithelial cells detection in urine sediment by light microscopy 2-5 NRG Crystals detection in urine sediment by light microscopy NONE NRG Casts detection in urine sediment by light microscopy PRESENT NRG Mucus detection in urine sediment by light microscopy SMALL NRG Complete urinalysis with reflex to culture NO NRG Hyaline casts detection in urine sediment by light microscopy 0-2 NRG Renal epithelial cells detection in urine sediment by light microscopy NONE NRG Complete blood count (CBC) with automated white blood cell (WBC) differential - 11/29/16 12:07 Blood leukocytes automated count (number/volume) 9.0 10*3/ uL 4.3-11.0 Blood erythrocytes automated count (number/volume) 3.12 10*6 /uL 4.35-5.85 Venous blood hemoglobin measurement (mass/volume) 10.6 g/dL 13.3-17.7 Blood hematocrit (volume fraction) 33 % 40-54 Automated erythrocyte mean corpuscular volume 105 [foz_us] 80-99 Automated erythrocyte mean corpuscular hemoglobin (mass per erythrocyte) 34 pg 25-34 Automated erythrocyte mean corpuscular hemoglobin concentration measurement ( mass/volume) 32 g/dL 32-36 Automated erythrocyte distribution width ratio 20.5 % 10.0-14.5 Automated blood platelet count (count/volume) 145 10*3/uL 130-400 Automated blood platelet mean volume measurement 9.2 [foz_us ] 7.4-10.4 Automated blood neutrophils/100 leukocytes 84 % 42-75 Automated blood lymphocytes/100 leukocytes 5 % 12-44 Blood monocytes/100 leukocytes 11 % 0-12 Automated blood eosinophils/100 leukocytes 0 % 0-10 Automated blood basophils/100 leukocytes 0 % 0-10 Blood neutrophils automated count (number/volume) 7.5 10*3 1.8-7.8 Blood lymphocytes automated count (number/volume) 0.5 10*3 1.0-4.0 Blood monocytes automated count (number/volume) 1.0 10*3 0.0-1.0 Automated eosinophil count 0.0 10*3/uL 0.0-0.3 Automated blood basophil count (count/volume) 0.0 10*3/uL 0.0-0.1 Whole blood basic metabolic panel - 11/29/16 12:07 Serum or plasma sodium measurement (moles/volume) 140 mmol/ L 135-145 Serum or plasma potassium measurement (moles/volume) 4.9 mmol/L 3.6-5.0 Serum or plasma chloride measurement (moles/volume) 103 mmol /L 98-107 Carbon dioxide 25 mmol/L 21-32 Serum or plasma anion gap determination (moles/volume) 12 mmol/L 5-14 Serum or plasma urea nitrogen measurement (mass/volume) 44 mg/dL 7-18 Serum or plasma creatinine measurement (mass/volume) 1.55 mg /dL 0.60-1.30 Serum or plasma urea nitrogen/creatinine mass ratio 28 NRG Serum or plasma creatinine measurement with calculation of estimated glomerular filtration rate 43 NRG Serum or plasma glucose measurement (mass/volume) 84 mg/dL 70-105 Serum or plasma calcium measurement (mass/volume) 8.9 mg/dL 8.5-10.1 Magnesium - 11/29/16 12:07 Magnesium 2.0 mg/dL 1.8-2.4 Encounters ACCT No. Visit Date/Time Discharge Status Pt. 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, PAIN, DEHYDRATION [id number] 10/22/2016 12:19:00 2016 15:26:00 DIS Emergency WAYLON WALKER, SEAN Neville [facility] ER FALL DIZZY [id number] 10/22/2016 08:42:00 2016 08:42:00 CAN Preadmit CLOVIS RUDD [facility] RAD [id number] 09/10/2016 07:47:00 2016 12:17:00 DIS Outpatient GERSON MONTIEL MD [facility] SDC RECURRENT SCC LT MANDIBLE [id number] 09/09/2016 05:42:00 2016 10:28:00 DIS Outpatient GERSON MONTIEL MD [facility] PREOP RECURRENT SCC LT MANDIBLE [id number] 08/11/2016 11:53:00 2015 16:00:00 DIS Outpatient HERBERT BARTH MD [facility] WOUNDCARE [id number] 07/11/2016 12:03:00 2015 12:53:00 DIS Emergency NICOLE DO, JOHN K [facility] ER LOWER L JAW PAIN [id number] 09/24/2014 15:46:00 2014 17:10:00 DIS Emergency SAMANTHA COY MD [facility] ER FALL,L SHOULDER PAIN [id number] 02/07/2014 09:25:00 2013 15:23:00 DIS Inpatient NARINDER WALKER FACC, FLORES PENA CCDS [facility] ICU TACHY ARRHYTHMIA [id number] 01/31/2014 11:20:00 2013 13:55:00 DIS Inpatient DMITRY WALKER, SABRA Robles [facility] 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 [id number] 01/18/2014 19:21:00 2013 21:47:00 DIS Emergency TYRESE PARK MD [facility] ER LOWER BACK PAIN [id number] 12/03/2016 00:11:00 PEN Preadmit JOYA ALONSO MD [facility] ONC [id number] 11/29/2016 11:43:00 ACT Outpatient CELESTE WALKER, JOYA Retana [facility] RAD JAW CA [id number] 10/05/2016 09:47:00 ACT Outpatient CELESTE WALKER, JOYA Retana [facility] RAD HEADACHE,JAW CA [id number] 08/17/2016 09:31:00 ACT Outpatient MAHAD LOPEZ MID LEVEL PROVIDER [facility] RAD SQUAMOUS CELL LT BUCCAL [id number] 08/06/2016 12:40:00 ACT Outpatient DMITRY WALKER, SABRA Robles [facility] CARD NEEDS HYPERBARIC TREATMENT FOR OSTEONECROSIS [id number] 08/03/2016 15:12:00 ACT Outpatient ANNA WALKER, HERBERT Corbin [facility] RAD LT LOWER GUM LESION,HX ORAL CA [id number] 07/30/2016 11:08:00 ACT Outpatient LARY WALKER, HERBERT Issa [facility] RAD K04.7,L59.9,Z86.79
== END 2016-11-20 23:35 | disposition home or self-care (01) ==
LOC: EDUNIT# 19:15 → ER 19:17
DX: M19.042 Primary osteoarthritis, left hand (principal); R41.0 Disorientation, unspecified; C76.0 Malignant neoplasm of head, face and neck; I10 Essential (primary) hypertension; E11.9 Type 2 diabetes mellitus without complications; Z95.0 Presence of cardiac pacemaker; Z95.5 Presence of coronary angioplasty implant and graft; Z79.899 Other long term (current) drug therapy
CPT/HCPCS: 36415; 71010; 73130; 80053; 80162; 81000; 84439; 84443; 85025; 86141; 96360

== ENCOUNTER 2016-11-24 13:28 | Outpatient (RCR) | payer MEDICARE, OTHER ==
--- OUTSIDE RECORDS SUMMARY | 2016-09-03 10:13 | XMS REPORT | Continuity of Care Document ---
Author Author [facility] Organization [facility] Address Unknown Phone Unavailable Care Team Providers Care Oil Recovery Operator Name Role Phone Travis Salas PCP [phone] Source Comments Some departments are not documenting in the electronic medical record. If you do not see the information that you expected, contact Release of Information in the Health Information Management department at [phone] for further assistance in locating additional records.[facility] Active Allergies and Adverse Reactions No Known Allergies Current Medications Prescription Sig. Disp. Refills Start End Date Status Date levothyroxine(+) Take by mouth. Active (TIROSINT) 100 mcg cap capsule bumetanide (BUMEX) 2 mg Take 2 mg by mouth daily. Active tablet PRAVASTATIN SODIUM Take 40 mg by mouth. Active (PRAVASTATIN PO) FOLIC Take by mouth. Active ACID/MULTIVIT-MIN/LUTEIN (CENTRUM SILVER PO) Melatonin 5 mg cap Take by mouth. Active ACETAMINOPHEN (TYLENOL Take 500 mg by mouth. Active PO) PANTOPRAZOLE SODIUM Take 40 mg by mouth. Active (PANTOPRAZOLE PO) carvedilol (COREG) 25 mg Take 25 mg by mouth twice Active tablet daily with meals. Take with food. digoxin (LANOXIN) 125 mcg Take 125 mcg by mouth Active tablet daily. chlorhexidine gluconate Swish and Spit 15 mL by Active (PERIDEX) 0.12 % solution mouth as directed twice daily. Active Problems Problem Noted Date Oral cancer (HCC) 08/27/2016 Most Recent Encounters Date Type Specialty Providers Description 09/02/2016 [facility] George Andrews MD Squamous cell carcinoma Encounter of oral cavity (HCC) 08/27/2016 Office Visit Otolaryngology George Andrews MD Oral cancer (HCC) (Primary Dx) 08/26/2016 Telephone Otolaryngology George Andrews MD Navigation Assessment 08/13/2016 Telephone Otolaryngology Mary Saha RN Appointment Social History Tobacco Use Types Packs/Day Years Used Date Never Smoker Alcohol Use Drinks/Week oz/Week Comments No Last Filed Vital Signs Vital Sign Reading Time Taken Blood Pressure 120/70 08/27/2016 12:40 PM COMPLEX HUMAN RESOURCES MANAGER Pulse 77 08/27/2016 12:40 PM COMPLEX HUMAN RESOURCES MANAGER Temperature - - Respiratory Rate - - Height 1.829 m (6') 08/27/2016 12:40 PM COMPLEX HUMAN RESOURCES MANAGER Weight 72.757 kg (160 lb 6.4 oz) 08/27/2016 12:40 PM COMPLEX HUMAN RESOURCES MANAGER Body Mass Index 21.75 08/27/2016 12:40 PM COMPLEX HUMAN RESOURCES MANAGER Oxygen Saturation - - Plan of Care Health Maintenance Due Date Last Done Comments Physical (Comprehensive) 1940 Exam Pertussis Vaccine 1944 Tetanus Vaccine 1950 Shingles Vaccine 1993 Prevnar/Pneumovax (#1) 1998 Influenza Vaccine 04/29/2016 Results from Last 3 Months Not on file
[2016-09-03 10:36] LABS: BASOPHILS % (AUTO) 0 % (0-10); EOSINOPHILS # (AUTO) 0.1 10^3/uL (0.0-0.3); EOSINOPHILS % (AUTO) 2 % (0-10); LYMPHOCYTES # (AUTO) 0.6 X 10^3 (1.0-4.0); LYMPHOCYTES % (AUTO) 10 % (12-44); MEAN CORPUSCULAR HEMOGLOBIN 30 PG (25-34); MEAN CORPUSCULAR HGB CONC 32 G/DL (32-36); MEAN CORPUSCULAR VOLUME 95 FL (80-99); MEAN PLATELET VOLUME 8.8 FL (7.4-10.4); MONOCYTES # (AUTO) 0.7 X 10^3 (0.0-1.0); MONOCYTES % (AUTO) 11 % (0-12); NEUTROPHILS # (AUTO) 4.8 X 10^3 (1.8-7.8); NEUTROPHILS % (AUTO) 77 % (42-75); PLATELET COUNT 204 10^3/uL (130-400); RED BLOOD COUNT 3.59 10^6/uL (4.35-5.85); RED CELL DISTRIBUTION WIDTH 15.6 % (10.0-14.5); WHITE BLOOD COUNT 6.3 10^3/uL (4.3-11.0)
[2016-09-03 11:05] LABS: ALANINE AMINOTRANSFERASE 8 U/L (0-55); ALBUMIN 3.8 G/DL (3.2-4.5); ANION GAP 9 MMOL/L (5-14); ASPARTATE AMINO TRANSFERASE 15 U/L (5-34); BILIRUBIN,TOTAL 0.5 MG/DL (0.1-1.0); BLOOD UREA NITROGEN 22 MG/DL (7-18); BUN/CREATININE RATIO 19; CALCIUM 9.1 MG/DL (8.5-10.1); CARBON DIOXIDE 26 MMOL/L (21-32); CHLORIDE 100 MMOL/L (98-107); CREATININE SERUM 1.14 MG/DL (0.60-1.30); GFR ESTIMATED > 60; GLUCOSE 94 MG/DL (70-105); POTASSIUM 4.7 MMOL/L (3.6-5.0); SODIUM 135 MMOL/L (135-145); TOTAL PROTEIN 6.7 G/DL (6.4-8.2)
[2016-09-15 11:48] LABS: BASOPHILS % (AUTO) 0 % (0-10); EOSINOPHILS % (AUTO) 0 % (0-10); LYMPHOCYTES # (AUTO) 0.4 X 10^3 (1.0-4.0); LYMPHOCYTES % (AUTO) 7 % (12-44); MEAN CORPUSCULAR HEMOGLOBIN 31 PG (25-34); MEAN CORPUSCULAR HGB CONC 32 G/DL (32-36); MEAN CORPUSCULAR VOLUME 95 FL (80-99); MEAN PLATELET VOLUME 8.8 FL (7.4-10.4); MONOCYTES # (AUTO) 0.1 X 10^3 (0.0-1.0); MONOCYTES % (AUTO) 2 % (0-12); NEUTROPHILS # (AUTO) 5.7 X 10^3 (1.8-7.8); NEUTROPHILS % (AUTO) 91 % (42-75); PLATELET COUNT 169 10^3/uL (130-400); RED BLOOD COUNT 3.72 10^6/uL (4.35-5.85); RED CELL DISTRIBUTION WIDTH 15.8 % (10.0-14.5); WHITE BLOOD COUNT 6.2 10^3/uL (4.3-11.0)
[2016-09-15 12:11] LABS: ALANINE AMINOTRANSFERASE < 6 U/L (0-55); ALBUMIN 3.7 G/DL (3.2-4.5); ANION GAP 9 MMOL/L (5-14); ASPARTATE AMINO TRANSFERASE 12 U/L (5-34); BILIRUBIN,TOTAL 0.8 MG/DL (0.1-1.0); BLOOD UREA NITROGEN 19 MG/DL (7-18); BUN/CREATININE RATIO 20; CALCIUM 9.3 MG/DL (8.5-10.1); CARBON DIOXIDE 26 MMOL/L (21-32); CHLORIDE 101 MMOL/L (98-107); CREATININE SERUM 0.94 MG/DL (0.60-1.30); GFR ESTIMATED > 60; GLUCOSE 166 MG/DL (70-105); SODIUM 136 MMOL/L (135-145); TOTAL PROTEIN 6.8 G/DL (6.4-8.2)
[2016-09-15 12:33] LABS: THYROID STIMULATING HORMONE 0.64 UIU/ML (0.35-4.94)
[2016-09-21 09:54] LABS: BASOPHILS % (AUTO) 0 % (0-10); EOSINOPHILS % (AUTO) 1 % (0-10); LYMPHOCYTES # (AUTO) 0.3 X 10^3 (1.0-4.0); LYMPHOCYTES % (AUTO) 5 % (12-44); MEAN CORPUSCULAR HEMOGLOBIN 31 PG (25-34); MEAN CORPUSCULAR HGB CONC 32 G/DL (32-36); MEAN CORPUSCULAR VOLUME 96 FL (80-99); MEAN PLATELET VOLUME 9.1 FL (7.4-10.4); MONOCYTES # (AUTO) 0.2 X 10^3 (0.0-1.0); MONOCYTES % (AUTO) 3 % (0-12); NEUTROPHILS % (AUTO) 91 % (42-75); PLATELET COUNT 156 10^3/uL (130-400); RED CELL DISTRIBUTION WIDTH 15.5 % (10.0-14.5); WHITE BLOOD COUNT 5.6 10^3/uL (4.3-11.0)
[2016-09-21 10:20] LABS: ANION GAP 8 MMOL/L (5-14); BLOOD UREA NITROGEN 24 MG/DL (7-18); BUN/CREATININE RATIO 22; CALCIUM 8.9 MG/DL (8.5-10.1); CARBON DIOXIDE 27 MMOL/L (21-32); CHLORIDE 102 MMOL/L (98-107); GFR ESTIMATED > 60; GLUCOSE 165 MG/DL (70-105); MAGNESIUM 2.1 MG/DL (1.8-2.4); POTASSIUM 4.9 MMOL/L (3.6-5.0); SODIUM 137 MMOL/L (135-145)
[2016-09-28 09:55] LABS: BASOPHILS % (AUTO) 0 % (0-10); EOSINOPHILS % (AUTO) 0 % (0-10); LYMPHOCYTES # (AUTO) 0.3 X 10^3 (1.0-4.0); LYMPHOCYTES % (AUTO) 8 % (12-44); MEAN CORPUSCULAR HEMOGLOBIN 31 PG (25-34); MEAN CORPUSCULAR HGB CONC 32 G/DL (32-36); MEAN CORPUSCULAR VOLUME 96 FL (80-99); MEAN PLATELET VOLUME 8.6 FL (7.4-10.4); MONOCYTES # (AUTO) 0.1 X 10^3 (0.0-1.0); MONOCYTES % (AUTO) 3 % (0-12); NEUTROPHILS % (AUTO) 90 % (42-75); PLATELET COUNT 177 10^3/uL (130-400); RED BLOOD COUNT 3.44 10^6/uL (4.35-5.85); RED CELL DISTRIBUTION WIDTH 15.6 % (10.0-14.5); WHITE BLOOD COUNT 4.4 10^3/uL (4.3-11.0)
[2016-09-28 10:24] LABS: CALCIUM 9.1 MG/DL (8.5-10.1); CREATININE SERUM 1.18 MG/DL (0.60-1.30); POTASSIUM 4.9 MMOL/L (3.6-5.0)
[2016-09-28 10:25] LABS: MAGNESIUM 2.1 MG/DL (1.8-2.4)
[2016-10-05 09:34] LABS: BASOPHILS % (AUTO) 0 % (0-10); EOSINOPHILS # (AUTO) 0.1 10^3/uL (0.0-0.3); EOSINOPHILS % (AUTO) 1 % (0-10); LYMPHOCYTES # (AUTO) 0.7 X 10^3 (1.0-4.0); LYMPHOCYTES % (AUTO) 13 % (12-44); MEAN CORPUSCULAR HEMOGLOBIN 31 PG (25-34); MEAN CORPUSCULAR HGB CONC 31 G/DL (32-36); MEAN CORPUSCULAR VOLUME 98 FL (80-99); MEAN PLATELET VOLUME 9.1 FL (7.4-10.4); MONOCYTES # (AUTO) 0.8 X 10^3 (0.0-1.0); MONOCYTES % (AUTO) 16 % (0-12); NEUTROPHILS # (AUTO) 3.5 X 10^3 (1.8-7.8); NEUTROPHILS % (AUTO) 69 % (42-75); PLATELET COUNT 177 10^3/uL (130-400); RED BLOOD COUNT 3.28 10^6/uL (4.35-5.85); RED CELL DISTRIBUTION WIDTH 16.6 % (10.0-14.5); WHITE BLOOD COUNT 5.1 10^3/uL (4.3-11.0)
[2016-10-05 10:29] LABS: ANION GAP 7 MMOL/L (5-14); BLOOD UREA NITROGEN 23 MG/DL (7-18); BUN/CREATININE RATIO 23; CALCIUM 9.1 MG/DL (8.5-10.1); CARBON DIOXIDE 30 MMOL/L (21-32); CHLORIDE 103 MMOL/L (98-107); CREATININE SERUM 1.02 MG/DL (0.60-1.30); GFR ESTIMATED > 60; GLUCOSE 97 MG/DL (70-105); MAGNESIUM 1.8 MG/DL (1.8-2.4); POTASSIUM 4.8 MMOL/L (3.6-5.0); SODIUM 140 MMOL/L (135-145)
[2016-10-12 10:01] LABS: BASOPHILS % (AUTO) 0 % (0-10); EOSINOPHILS # (AUTO) 0.1 10^3/uL (0.0-0.3); EOSINOPHILS % (AUTO) 1 % (0-10); LYMPHOCYTES # (AUTO) 0.5 X 10^3 (1.0-4.0); LYMPHOCYTES % (AUTO) 8 % (12-44); MEAN CORPUSCULAR HEMOGLOBIN 30 PG (25-34); MEAN CORPUSCULAR HGB CONC 31 G/DL (32-36); MEAN CORPUSCULAR VOLUME 97 FL (80-99); MEAN PLATELET VOLUME 8.5 FL (7.4-10.4); MONOCYTES # (AUTO) 0.6 X 10^3 (0.0-1.0); MONOCYTES % (AUTO) 9 % (0-12); NEUTROPHILS # (AUTO) 4.7 X 10^3 (1.8-7.8); NEUTROPHILS % (AUTO) 81 % (42-75); PLATELET COUNT 170 10^3/uL (130-400); RED BLOOD COUNT 3.17 10^6/uL (4.35-5.85); RED CELL DISTRIBUTION WIDTH 17.3 % (10.0-14.5); WHITE BLOOD COUNT 5.8 10^3/uL (4.3-11.0)
[2016-10-12 10:33] LABS: ALANINE AMINOTRANSFERASE < 6 U/L (0-55); ALBUMIN 3.3 G/DL (3.2-4.5); ANION GAP 8 MMOL/L (5-14); ASPARTATE AMINO TRANSFERASE 10 U/L (5-34); BILIRUBIN,TOTAL 0.7 MG/DL (0.1-1.0); BLOOD UREA NITROGEN 21 MG/DL (7-18); BUN/CREATININE RATIO 24; CALCIUM 8.9 MG/DL (8.5-10.1); CARBON DIOXIDE 26 MMOL/L (21-32); CHLORIDE 103 MMOL/L (98-107); CREATININE SERUM 0.88 MG/DL (0.60-1.30); GFR ESTIMATED > 60; GLUCOSE 121 MG/DL (70-105); MAGNESIUM 1.9 MG/DL (1.8-2.4); POTASSIUM 4.5 MMOL/L (3.6-5.0); SODIUM 137 MMOL/L (135-145); TOTAL PROTEIN 6.3 G/DL (6.4-8.2)
[2016-10-19 09:51] LABS: BASOPHILS % (AUTO) 0 % (0-10); EOSINOPHILS # (AUTO) 0.1 10^3/uL (0.0-0.3); EOSINOPHILS % (AUTO) 1 % (0-10); LYMPHOCYTES # (AUTO) 0.5 X 10^3 (1.0-4.0); LYMPHOCYTES % (AUTO) 9 % (12-44); MEAN CORPUSCULAR HEMOGLOBIN 31 PG (25-34); MEAN CORPUSCULAR HGB CONC 32 G/DL (32-36); MEAN CORPUSCULAR VOLUME 99 FL (80-99); MEAN PLATELET VOLUME 8.6 FL (7.4-10.4); MONOCYTES # (AUTO) 0.5 X 10^3 (0.0-1.0); MONOCYTES % (AUTO) 9 % (0-12); NEUTROPHILS # (AUTO) 4.5 X 10^3 (1.8-7.8); NEUTROPHILS % (AUTO) 81 % (42-75); PLATELET COUNT 160 10^3/uL (130-400); RED BLOOD COUNT 3.02 10^6/uL (4.35-5.85); RED CELL DISTRIBUTION WIDTH 17.8 % (10.0-14.5); WHITE BLOOD COUNT 5.6 10^3/uL (4.3-11.0)
[2016-10-19 10:22] LABS: ALANINE AMINOTRANSFERASE 6 U/L (0-55); ALBUMIN 3.1 G/DL (3.2-4.5); ANION GAP 6 MMOL/L (5-14); ASPARTATE AMINO TRANSFERASE 9 U/L (5-34); BILIRUBIN,TOTAL 0.6 MG/DL (0.1-1.0); BLOOD UREA NITROGEN 22 MG/DL (7-18); BUN/CREATININE RATIO 23; CALCIUM 8.5 MG/DL (8.5-10.1); CARBON DIOXIDE 27 MMOL/L (21-32); CHLORIDE 103 MMOL/L (98-107); CREATININE SERUM 0.95 MG/DL (0.60-1.30); GFR ESTIMATED > 60; GLUCOSE 146 MG/DL (70-105); MAGNESIUM 1.9 MG/DL (1.8-2.4); POTASSIUM 4.4 MMOL/L (3.6-5.0); SODIUM 136 MMOL/L (135-145); TOTAL PROTEIN 5.9 G/DL (6.4-8.2)
[2016-10-22 12:03] LABS: BASOPHILS % (AUTO) 0 % (0-10); EOSINOPHILS # (AUTO) 0.1 10^3/uL (0.0-0.3); EOSINOPHILS % (AUTO) 1 % (0-10); LYMPHOCYTES # (AUTO) 0.5 X 10^3 (1.0-4.0); LYMPHOCYTES % (AUTO) 8 % (12-44); MEAN CORPUSCULAR HEMOGLOBIN 31 PG (25-34); MEAN CORPUSCULAR HGB CONC 31 G/DL (32-36); MEAN CORPUSCULAR VOLUME 99 FL (80-99); MEAN PLATELET VOLUME 8.7 FL (7.4-10.4); MONOCYTES # (AUTO) 0.6 X 10^3 (0.0-1.0); MONOCYTES % (AUTO) 9 % (0-12); NEUTROPHILS # (AUTO) 5.3 X 10^3 (1.8-7.8); NEUTROPHILS % (AUTO) 82 % (42-75); PLATELET COUNT 147 10^3/uL (130-400); RED CELL DISTRIBUTION WIDTH 17.9 % (10.0-14.5); WHITE BLOOD COUNT 6.5 10^3/uL (4.3-11.0)
[2016-10-22 12:27] LABS: ALANINE AMINOTRANSFERASE 9 U/L (0-55); ALBUMIN 3.2 G/DL (3.2-4.5); ANION GAP 7 MMOL/L (5-14); ASPARTATE AMINO TRANSFERASE 12 U/L (5-34); BLOOD UREA NITROGEN 27 MG/DL (7-18); BUN/CREATININE RATIO 25; CARBON DIOXIDE 28 MMOL/L (21-32); CHLORIDE 101 MMOL/L (98-107); CREATININE SERUM 1.08 MG/DL (0.60-1.30); GFR ESTIMATED > 60; GLUCOSE 101 MG/DL (70-105); POTASSIUM 4.6 MMOL/L (3.6-5.0); SODIUM 136 MMOL/L (135-145); TOTAL PROTEIN 6.3 G/DL (6.4-8.2)
[2016-10-26 09:52] LABS: BASOPHILS % (AUTO) 0 % (0-10); EOSINOPHILS # (AUTO) 0.2 10^3/uL (0.0-0.3); EOSINOPHILS % (AUTO) 2 % (0-10); LYMPHOCYTES # (AUTO) 0.5 X 10^3 (1.0-4.0); LYMPHOCYTES % (AUTO) 6 % (12-44); MEAN CORPUSCULAR HEMOGLOBIN 32 PG (25-34); MEAN CORPUSCULAR HGB CONC 32 G/DL (32-36); MEAN CORPUSCULAR VOLUME 99 FL (80-99); MEAN PLATELET VOLUME 8.1 FL (7.4-10.4); MONOCYTES # (AUTO) 0.6 X 10^3 (0.0-1.0); MONOCYTES % (AUTO) 8 % (0-12); NEUTROPHILS # (AUTO) 6.3 X 10^3 (1.8-7.8); NEUTROPHILS % (AUTO) 84 % (42-75); PLATELET COUNT 156 10^3/uL (130-400); RED BLOOD COUNT 2.88 10^6/uL (4.35-5.85); RED CELL DISTRIBUTION WIDTH 18.3 % (10.0-14.5); WHITE BLOOD COUNT 7.5 10^3/uL (4.3-11.0)
[2016-10-26 10:21] LABS: ANION GAP 8 MMOL/L (5-14); BLOOD UREA NITROGEN 23 MG/DL (7-18); BUN/CREATININE RATIO 26; CALCIUM 8.7 MG/DL (8.5-10.1); CARBON DIOXIDE 25 MMOL/L (21-32); CHLORIDE 103 MMOL/L (98-107); CREATININE SERUM 0.88 MG/DL (0.60-1.30); GFR ESTIMATED > 60; GLUCOSE 111 MG/DL (70-105); MAGNESIUM 1.9 MG/DL (1.8-2.4); POTASSIUM 4.6 MMOL/L (3.6-5.0); SODIUM 136 MMOL/L (135-145)
[2016-11-10 14:30] LABS: BASOPHILS % (AUTO) 0 % (0-10); EOSINOPHILS # (AUTO) 0.1 10^3/uL (0.0-0.3); EOSINOPHILS % (AUTO) 2 % (0-10); LYMPHOCYTES # (AUTO) 0.5 X 10^3 (1.0-4.0); LYMPHOCYTES % (AUTO) 10 % (12-44); MEAN CORPUSCULAR HEMOGLOBIN 32 PG (25-34); MEAN CORPUSCULAR HGB CONC 31 G/DL (32-36); MEAN CORPUSCULAR VOLUME 103 FL (80-99); MEAN PLATELET VOLUME 8.2 FL (7.4-10.4); MONOCYTES # (AUTO) 0.6 X 10^3 (0.0-1.0); MONOCYTES % (AUTO) 11 % (0-12); NEUTROPHILS # (AUTO) 4.1 X 10^3 (1.8-7.8); NEUTROPHILS % (AUTO) 77 % (42-75); PLATELET COUNT 169 10^3/uL (130-400); RED BLOOD COUNT 2.97 10^6/uL (4.35-5.85); RED CELL DISTRIBUTION WIDTH 19.2 % (10.0-14.5); WHITE BLOOD COUNT 5.4 10^3/uL (4.3-11.0)
[2016-11-10 14:54] LABS: ALANINE AMINOTRANSFERASE 10 U/L (0-55); ALBUMIN 3.2 G/DL (3.2-4.5); ANION GAP 9 MMOL/L (5-14); ASPARTATE AMINO TRANSFERASE 11 U/L (5-34); BILIRUBIN,TOTAL 1.1 MG/DL (0.1-1.0); BLOOD UREA NITROGEN 24 MG/DL (7-18); BUN/CREATININE RATIO 27; CALCIUM 8.8 MG/DL (8.5-10.1); CARBON DIOXIDE 27 MMOL/L (21-32); CHLORIDE 102 MMOL/L (98-107); GFR ESTIMATED > 60; GLUCOSE 130 MG/DL (70-105); POTASSIUM 4.4 MMOL/L (3.6-5.0); SODIUM 138 MMOL/L (135-145); TOTAL PROTEIN 6.2 G/DL (6.4-8.2)
[2016-11-17 10:43] LABS: BASOPHILS % (AUTO) 0 % (0-10); EOSINOPHILS # (AUTO) 0.1 10^3/uL (0.0-0.3); EOSINOPHILS % (AUTO) 2 % (0-10); LYMPHOCYTES # (AUTO) 0.5 X 10^3 (1.0-4.0); LYMPHOCYTES % (AUTO) 8 % (12-44); MEAN CORPUSCULAR HEMOGLOBIN 33 PG (25-34); MEAN CORPUSCULAR HGB CONC 32 G/DL (32-36); MEAN CORPUSCULAR VOLUME 102 FL (80-99); MEAN PLATELET VOLUME 8.4 FL (7.4-10.4); MONOCYTES # (AUTO) 0.8 X 10^3 (0.0-1.0); MONOCYTES % (AUTO) 12 % (0-12); NEUTROPHILS # (AUTO) 5.2 X 10^3 (1.8-7.8); NEUTROPHILS % (AUTO) 78 % (42-75); PLATELET COUNT 181 10^3/uL (130-400); RED BLOOD COUNT 3.24 10^6/uL (4.35-5.85); RED CELL DISTRIBUTION WIDTH 19.6 % (10.0-14.5); WHITE BLOOD COUNT 6.6 10^3/uL (4.3-11.0)
[2016-11-17 11:18] LABS: ANION GAP 7 MMOL/L (5-14); BLOOD UREA NITROGEN 22 MG/DL (7-18); BUN/CREATININE RATIO 23; CALCIUM 8.8 MG/DL (8.5-10.1); CARBON DIOXIDE 29 MMOL/L (21-32); CHLORIDE 103 MMOL/L (98-107); CREATININE SERUM 0.95 MG/DL (0.60-1.30); GFR ESTIMATED > 60; GLUCOSE 123 MG/DL (70-105); MAGNESIUM 1.9 MG/DL (1.8-2.4); POTASSIUM 4.3 MMOL/L (3.6-5.0); SODIUM 139 MMOL/L (135-145)
[~2016-11-24] VITALS: Ht 177.8 cm; Wt 67.6 kg
[~2016-11-24 13:28] MED LIST changes: +CARBOPLATIN IV SCH; +D5W IV SCH; +FAMOTIDINE 20MG/2ML IV (CANCER CTR) IV SCH; +FENT1PAT8 TD; +MORP100S3 PO; +NORMAL SALINE IV SCH; +NS IV 1000 ML (CANCER CTR) 0 ML ONE; +NS IV 500 ML (CANCER CENTER) IV SCH; +ONDANSETRON 16 MG, DEXAMETHASONE 10 MG/NS 50 ML IVPB IV SCH; +PACLITAXEL IV SCH; +PACLITAXEL SEMI SYNTHETIC IV SCH; +QUET50TA PO; +diphenhydrAMINE 25 MG TAB (BENADRYL) CANCER CENTER PO SCH; +diphenhydrAMINE 50 MG/ML INJ (CANCER CENTER) ONE
[2016-11-24 13:48] LABS: BASOPHILS % (AUTO) 0 % (0-10); EOSINOPHILS # (AUTO) 0.1 10^3/uL (0.0-0.3); EOSINOPHILS % (AUTO) 2 % (0-10); LYMPHOCYTES # (AUTO) 0.5 X 10^3 (1.0-4.0); LYMPHOCYTES % (AUTO) 7 % (12-44); MEAN CORPUSCULAR HEMOGLOBIN 33 PG (25-34); MEAN CORPUSCULAR HGB CONC 32 G/DL (32-36); MEAN CORPUSCULAR VOLUME 104 FL (80-99); MONOCYTES # (AUTO) 0.5 X 10^3 (0.0-1.0); MONOCYTES % (AUTO) 7 % (0-12); NEUTROPHILS # (AUTO) 5.9 X 10^3 (1.8-7.8); NEUTROPHILS % (AUTO) 83 % (42-75); PLATELET COUNT 164 10^3/uL (130-400); RED BLOOD COUNT 2.95 10^6/uL (4.35-5.85); RED CELL DISTRIBUTION WIDTH 20.3 % (10.0-14.5)
[2016-11-24] MEDS ORDERED: diphenhydrAMINE 50 MG/ML INJ (CANCER CENTER) ONE (13:59)
[2016-11-24 14:17] LABS: ANION GAP 5 MMOL/L (5-14); BLOOD UREA NITROGEN 27 MG/DL (7-18); BUN/CREATININE RATIO 25; CALCIUM 8.7 MG/DL (8.5-10.1); CARBON DIOXIDE 31 MMOL/L (21-32); CHLORIDE 103 MMOL/L (98-107); CREATININE SERUM 1.09 MG/DL (0.60-1.30); GFR ESTIMATED > 60; GLUCOSE 118 MG/DL (70-105); MAGNESIUM 1.8 MG/DL (1.8-2.4); POTASSIUM 4.4 MMOL/L (3.6-5.0); SODIUM 139 MMOL/L (135-145)
== END 2016-12-02 | disposition home or self-care (01) ==
LOC: ONC 13:28
PROVIDERS: ATTEND Internal Medicine Hematology & Oncology
DX: Z51.11 Encounter for antineoplastic chemotherapy (principal); C41.1 Malignant neoplasm of mandible; I25.10 Atherosclerotic heart disease of native coronary artery without angina pectoris; I48.91 Unspecified atrial fibrillation; I12.9 Hypertensive chronic kidney disease with stage 1 through stage 4 chronic kidney disease, or unspecified chronic kidney disease; N18.3 Chronic kidney disease, stage 3 (moderate); E03.9 Hypothyroidism, unspecified; Z95.810 Presence of automatic (implantable) cardiac defibrillator; Z79.899 Other long term (current) drug therapy
CPT/HCPCS: 36415; 36591; 80048; 80053; 83735; 84439; 84443; 85025; 96375; 96413; 96417; 99213; 99214

== ENCOUNTER → 2016-11-29 | Outpatient (CLI) | payer MEDICARE ==
[~2016-11-29] MED LIST changes: -CARBOPLATIN IV SCH; +CATHETER FLUSH 10 ML SYR IV PRN; -D5W IV SCH; -FAMOTIDINE 20MG/2ML IV (CANCER CTR) IV SCH; +IOHEXOL 350 MG/ML 100 ML (OMNIPAQUE 350) VIAL IV ONE; -NORMAL SALINE IV SCH; +NS 100 ML (IVPB) BAG IV ONE; -NS IV 1000 ML (CANCER CTR) 0 ML ONE; -NS IV 500 ML (CANCER CENTER) IV SCH; -ONDANSETRON 16 MG, DEXAMETHASONE 10 MG/NS 50 ML IVPB IV SCH; -PACLITAXEL IV SCH; -PACLITAXEL SEMI SYNTHETIC IV SCH; -diphenhydrAMINE 25 MG TAB (BENADRYL) CANCER CENTER PO SCH; -diphenhydrAMINE 50 MG/ML INJ (CANCER CENTER) ONE
[2016-11-29 12:13] LABS: BASOPHILS % (AUTO) 0 % (0-10); EOSINOPHILS % (AUTO) 0 % (0-10); LYMPHOCYTES # (AUTO) 0.5 X 10^3 (1.0-4.0); LYMPHOCYTES % (AUTO) 5 % (12-44); MEAN CORPUSCULAR HEMOGLOBIN 34 PG (25-34); MEAN CORPUSCULAR HGB CONC 32 G/DL (32-36); MEAN CORPUSCULAR VOLUME 105 FL (80-99); MEAN PLATELET VOLUME 9.2 FL (7.4-10.4); MONOCYTES % (AUTO) 11 % (0-12); NEUTROPHILS # (AUTO) 7.5 X 10^3 (1.8-7.8); NEUTROPHILS % (AUTO) 84 % (42-75); PLATELET COUNT 145 10^3/uL (130-400); RED BLOOD COUNT 3.12 10^6/uL (4.35-5.85); RED CELL DISTRIBUTION WIDTH 20.5 % (10.0-14.5)
[2016-11-29 12:28] LABS: CALCIUM 8.9 MG/DL (8.5-10.1); CREATININE SERUM 1.55 MG/DL (0.60-1.30); POTASSIUM 4.9 MMOL/L (3.6-5.0)
--- NOTE | 2016-11-29 14:19 | Diagnostic Imaging Report ---
CT of the neck and chest with contrast. INDICATION: Carcinoma of the jaw. Contiguous axial sections were taken from the midportion of the skull to the lung apices following administration of intravenous contrast. Subsequently, additional images were taken through the thorax. Sagittal and coronal reconstructed images were also performed. FINDINGS: The previous PET/CT exam of 08/17/16 noted a hypermetabolic destructive mass in the anterior aspect of the left side of the mandible. This was felt to correspond to the patient's diagnosis of squamous cell carcinoma of the left buccal mucosa and mandible. On this exam, there does seem to be greater destruction of the mandible by neoplasm than noted on the prior exam. The soft tissue mass about the left mandible seen previously is also increased in size and now measures 2.5 x 4.7 cm as opposed to 1.4 x 3.1 cm previously. Furthermore in the interval since the previous exam, a poorly defined 1.9 x 3.3 x 3.9 cm soft tissue density with a low density center has developed anterior to the left sternocleidomastoid muscle. This may represent a necrotic lymph node involved by neoplasm. No other acute abnormality of the neck is noted. The previous CT chest exam of 08/17/16 failed to show any sign of metastatic disease. On this study, there is now a small 5 mm noncalcified nodule along the periphery of the right upper lung (axial image 17 of 84). There is also a 6 mm noncalcified nodule in the left midlung (image 43 of 84). Neither of these nodules were present on the prior exam and consequently should be considered neoplastic until proven otherwise. There is also a vague 8 mm poorly defined parenchymal density in the right lung base. This was not present on the previous exam either. While this could be secondary to a small focus of pneumonia/atelectasis, the possibility that this is neoplastic in nature should certainly be considered. No other parenchymal abnormality is identified. There does not appear to be any significant mediastinal or hilar adenopathy. There is no sign of failure, pneumonia or pleural effusion to indicate an acute abnormality. The heart is stable in size and there are extensive coronary artery calcifications evident. The aorta is not abnormally dilated. However, in the interval since the previous exam, a few small defects have developed in the pulmonary arteries bilaterally. These defects are in both the main pulmonary arteries and the branches of the pulmonary. This appearance does suggest pulmonary emboli. The sections through the upper abdomen failed to show any evidence for an acute abnormality. The gallbladder is distended. The bone windows show no sign of a fracture or of a destructive lesion other than the abnormality involving the mandible. IMPRESSION: 1. There is greater destruction of the left mandible than noted on the previous PET/CT exam. The soft tissue mass about the left mandible has also increased in size and there now appears to be a large necrotic node along the anterior aspect of the left sternocleidomastoid muscle. 2. Two small noncalcified nodules have developed in the lungs and there is a third poorly defined parenchymal density in the right lung base. These findings are worrisome for metastatic disease. 3. There are small defects now present in the pulmonary arteries bilaterally. This appearance would be consistent with pulmonary emboli. 4. There is no acute cardiopulmonary abnormality noted otherwise. 5. These results were called to Dr. Jayleen Moore at the time of this dictation. CRITICAL FINDING Dictated by: Dictated on workstation # [id number]
== END ==
LOC: RAD 11:43
PROVIDERS: ATTEND Internal Medicine Hematology & Oncology
DX: C76.0 Malignant neoplasm of head, face and neck (principal)
CPT/HCPCS: 36415; 70491; 71260; 80048; 83735; 85025